=== PATIENT | female | born 1930 | race Caucasian/White ===

== ENCOUNTER 2018-01-29 06:37 | Day surgery (SDC) | payer MEDICARE, OTHER ==
[~2018-01-29 06:37] MED LIST: KETOROLAC TROMETHAMINE 0.45% 4 DROP/0.4 ML DROPERETTE OS PRN
[2018-01-29] MEDS: TROPICAMIDE 1% OPH SOLN 3 ML OS PRN ×3 (06:54→07:14)
[2018-01-29] MEDS: BESIFLOXACIN HCL 0.6% OPH SUSP 5 ML BOTTLE OS PRN ×3 (06:54→07:44)
[2018-01-29] MEDS: CYCLOPENTOLATE 0.2%/PHENYLEPHRINE 1% OPH SOLN 2 ML OS PRN ×3 (06:54→07:14)
[2018-01-29] MEDS: TETRACAINE HCL 0.5% OPH SOLN 2 ML OS PRN ×3 (06:55→07:32)
[2018-01-29] MEDS ORDERED: FENTANYL CITRATE INJ/PF 100 MCG/2 ML AMPUL ONE (07:01)
[2018-01-29] MEDS ORDERED: MIDAZOLAM 2 MG/2 ML INJ ONE (07:01)
[2018-01-29] MEDS ORDERED: ONDANSETRON HCL INJ/PF 4 MG/2 ML SDV ONE (07:01)
[2018-01-29] MEDS ORDERED: EPINEPHRINE INJ/PF 1 MG/1 ML AMPULE ONE (07:09)
[2018-01-29] MEDS ORDERED: CHONDR SU A NA/HYALUR INTRAOC KIT (SURGICARE) ONE (07:09)
[2018-01-29] MEDS ORDERED: LIDOCAINE 1% INJ-PF (10 MG/ML) 30 ML SDV ONE (07:09)
--- NOTE | 2018-01-29 21:40 | [facility] OPERATIVE REPORT E ---
[facility] Operative Report NAME: ANTHONY MANRIQUEZ AGE: 88Y DATE OF SURGERY: 01/29/2018 ROOM: PREOPERATIVE DIAGNOSIS: CATARACT, LEFT EYE. POSTOPERATIVE DIAGNOSIS: CATARACT, LEFT EYE. OPERATION: Cataract extraction with insertion of an IOL of the left eye. SURGEON: MICHAEL JOVEL M.D. ANESTHESIA: Topical. PROCEDURE: After obtaining appropriate consent, the patient's left eye was prepped and draped in sterile fashion as well as the surgeon in a sterile manner and cataract surgery was started. First a paracentesis blade was used to make a side-port incision. Viscoelastic was used to inflate the anterior chamber. Next a 2.4 mm incision was made with a 2.4 mm blade, clear corneal temporally. A continuous capsulorrhexis was made using a cystotome and Utrata forceps. Following this hydrodissection was carried out to make the lens fully loose and mobile and it was rotated 90 degrees. Following this, a sujqyd-myd-ztzzyzg technique was used to phacoemulsify the lens with a CDE of 7.47. The remaining cortex was removed with irrigation/aspiration. Provisc was instilled into the capsular bag to inflate the bag. A SN60WF, 24.0 diopter lens was placed. The remaining viscoelastic material was removed with irrigation/aspiration. Following this, the incision was found to be watertight. Besivance was instilled into the eye and a protective shield was placed over the eye. The patient returned to the postoperative recovery in stable condition. DICTATING PHYSICIAN: MICHAEL JOVEL M.D. [id number] PHY#: [id number] ID: [id number] JOB#: [id number] ACCT: [id number] cc:MICHAEL JOVEL M.D. >
--- NOTE | 2018-01-29 21:40 | [facility] DISCHARGE SUMMARY E ---
[facility] Discharge Summary NAME: ANTHONY MANRIQUEZ AGE: 88Y ADMITTED: 01/29/2018 DISCHARGED: 01/29/18 HOSPITAL COURSE: This is an 88-year-old patient who underwent cataract extraction of the left eye. DIAGNOSIS: CATARACT, LEFT EYE. She underwent surgery because she was having trouble seeing medicine bottle. DISCHARGE INSTRUCTIONS: She should be on a regular diet. No bending at her waist, no heavy lifting. She should use her Besivance, Ilevro, and Durezol at 3 p.m. and 8 p.m. and sleep with a rigid shield. I will see her for her 1 day postoperative tomorrow. DICTATING PHYSICIAN: MICHAEL JOVEL M.D. [id number] PHY#: [id number] ID: [id number] JOB#: [id number] ACCT: [id number] cc:MICHAEL JOVEL M.D. > MTDD
== END 2018-01-29 08:45 | disposition home or self-care (01) ==
LOC: SC 06:37
PROVIDERS: ATTEND Internal Medicine
DX: H25.13 Age-related nuclear cataract, bilateral (principal); H04.123 Dry eye syndrome of bilateral lacrimal glands; E78.00 Pure hypercholesterolemia, unspecified; Z79.899 Other long term (current) drug therapy; Z88.5 Allergy status to narcotic agent; Z79.82 Long term (current) use of aspirin
CPT/HCPCS: 66984; V2632; J2250; J3490 ×2; A9270; J0171; J3010; J2405; 142

== ENCOUNTER 2018-02-19 09:23 | Day surgery (SDC) | payer MEDICARE, OTHER ==
[~2018-02-19 09:23] MED LIST changes: +KETOROLAC TROMETHAMINE 0.45% 4 DROP/0.4 ML DROPERETTE OD PRN; -KETOROLAC TROMETHAMINE 0.45% 4 DROP/0.4 ML DROPERETTE OS PRN; +MIDAZOLAM 2 MG/2 ML INJ ONE
[2018-02-19] MEDS: TETRACAINE HCL 0.5% OPH SOLN 2 ML OD PRN ×3 (10:10→10:52)
[2018-02-19] MEDS ORDERED: LIDOCAINE 1%/PHENYLEPHRINE 1.5% 1 ML VIAL ONE (10:10)
[2018-02-19] MEDS: TROPICAMIDE 1% OPH SOLN 3 ML OD PRN ×3 (10:10→10:33)
[2018-02-19] MEDS ORDERED: EPINEPHRINE INJ/PF 1 MG/1 ML AMPULE ONE (10:10)
[2018-02-19] MEDS: CYCLOPENTOLATE 0.2%/PHENYLEPHRINE 1% OPH SOLN 2 ML OD PRN ×3 (10:10→10:33)
[2018-02-19] MEDS ORDERED: CHONDR SU A NA/HYALUR INTRAOC KIT (SURGICARE) ONE (10:10)
[2018-02-19] MEDS: BESIFLOXACIN HCL 0.6% OPH SUSP 5 ML BOTTLE OD PRN ×3 (10:10→11:13)
--- NOTE | 2018-02-19 16:11 | [facility] OPERATIVE REPORT E ---
[facility] Operative Report NAME: ANTHONY MANRIQUEZ AGE: 88Y DATE OF SURGERY: 02/19/2018 ROOM: PREOPERATIVE DIAGNOSIS: CATARACT, RIGHT EYE. POSTOPERATIVE DIAGNOSIS: CATARACT, RIGHT EYE. OPERATION: Cataract extraction with insertion of an IOL of the right eye. SURGEON: MICHAEL JOVEL M.D. ANESTHESIA: Topical. PROCEDURE: After obtaining appropriate consent, the patient's right eye was prepped and draped in sterile fashion as well as the surgeon in a sterile manner and cataract surgery was started. First a paracentesis blade was used to make a side-port incision. Viscoelastic was used to inflate the anterior chamber. Next a 2.4 mm incision was made with a 2.4 mm blade, clear corneal temporally. A continuous capsulorrhexis was made using a cystotome and Utrata forceps. Following this hydrodissection was carried out to make the lens fully loose and mobile and it was rotated 90 degrees. Following this, a wlyibd-jli-uhmjwsn technique was used to phacoemulsify the lens with a CDE of 27.71. The remaining cortex was removed with irrigation/aspiration. Provisc was instilled into the capsular bag to inflate the bag. A SN60WF, 23.5 diopter lens was placed. The remaining viscoelastic material was removed with irrigation/aspiration. Following this, the incision was found to be watertight. Besivance was instilled into the eye and a protective shield was placed over the eye. The patient returned to the postoperative recovery in stable condition. DICTATING PHYSICIAN: MICHAEL JOVEL M.D. [id number] PHY#: [id number] ID: [id number] JOB#: [id number] ACCT: [id number] cc:MICHAEL JOVEL M.D. >
--- NOTE | 2018-02-19 16:21 | [facility] DISCHARGE SUMMARY E ---
[facility] Discharge Summary NAME: ANTHONY MANRIQUEZ AGE: 88Y ADMITTED: 02/19/2018 DISCHARGED: HOSPITAL COURSE: This is an 88-year-old female who underwent cataract extraction of the right eye. DIAGNOSIS: CATARACT, RIGHT EYE. DISCHARGE INSTRUCTIONS: She underwent surgery because of some difficulty secondary to glare from sunlight, making it difficult to see outdoors. She should resume a regular diet. No bending at the waist, no heavy lifting. She should use her Besivance, Ilevro, and Durezol at 3:00 p.m. and 8:00 p.m., and sleep with a rigid shield. I will see her for her 1 day postoperative tomorrow. DICTATING PHYSICIAN: MICHAEL JOVEL M.D. [id number] PHY#: [id number] ID: [id number] JOB#: [id number] ACCT: [id number] cc:MICHAEL JOVEL M.D. >
== END 2018-02-19 11:56 | disposition home or self-care (01) ==
LOC: SC 09:23
PROVIDERS: ATTEND Internal Medicine
DX: H25.11 Age-related nuclear cataract, right eye (principal); Z96.1 Presence of intraocular lens; Z79.82 Long term (current) use of aspirin; Z88.5 Allergy status to narcotic agent
CPT/HCPCS: 66984; V2632; J2250; J3490; A9270; J0171; J2370; 142

== ENCOUNTER 2018-12-09 18:05 | Emergency (ER) | payer MEDICARE, OTHER ==
[2018-12-09 18:21] LABS: ABSOLUTE BASOPHILS # (AUTO) 0.1 10^3/uL (0.0-0.2); ABSOLUTE EOSINOPHILS # (AUTO) 0.1 10^3/uL (0.0-0.6); ABSOLUTE LYMPHOCYTES (AUTO) 1.8 10^3/uL (0.5-4.7); ABSOLUTE MONOCYTES (AUTO) 0.7 10^3/uL (0.1-1.4); ABSOLUTE NEUT (AUTO) 3.1 10^3/uL (1.7-8.2); BASOPHILS % (AUTO) 1.2 % (0-2); EOSINOPHILS % (AUTO) 1.2 % (0-6); HEMATOCRIT 41.1 % (36.0-47.0); HEMOGLOBIN 14.2 g/dL (12.0-15.5); LYMPHOCYTES % (AUTO) 31.1 % (13-45); MEAN CORPUSCULAR HEMOGLOBIN 30.8 pg (27.0-33.4); MEAN CORPUSCULAR HGB CONC 34.5 g/dL (32.0-36.0); MEAN CORPUSCULAR VOLUME 89 fl (80-97); MONOCYTES % (AUTO) 12.8 % (3-13); RED BLOOD COUNT 4.61 10^6/uL (3.72-5.28); RED CELL DISTRIBUTION WIDTH 13.8 % (11.5-14.0); SEGMENTED NEUTROPHILS % (AUTO) 53.7 % (42-78); TOTAL CELLS COUNTED % (AUTO) 100 %; WHITE BLOOD COUNT 5.7 10^3/uL (4.0-10.5)
[2018-12-09 18:23] LABS: INTERNATIONAL RATION (INR) 0.87; PARTIAL THROMBOPLASTIN TIME 26.5 SEC (23.5-35.8); PROTHROMBIN TIME 12.3 SEC (11.4-15.4)
--- NOTE | 2018-12-09 18:38 | RADIOLOGY REPORT (SQ) ---
EXAM DESCRIPTION: CT HEAD WITHOUT COMPLETED DATE/TIME: 12/09/2018 6:20 pm REASON FOR STUDY: BED MP STROKE ALERT COMPARISON: None. TECHNIQUE: Axial images acquired through the brain without intravenous contrast. Images reviewed wi th bone, brain and subdural windows. Images stored on PACS. All CT scanners at this facility use dose modulation, iterative reconstruction, and/or weight based d osing when appropriate to reduce radiation dose to as low as reasonably achievable (ALARA). [facility]: Dose Right [facility]: CareDose [facility]: Dose Right [facility]: Teradose 4D [facility]: [employer] RADIATION DOSE: CT Rad equipment meets quality standard of care and radiation dose reduction techniq ues were employed. CTDIvol: 53.2 mGy. DLP: 1017 mGy-cm. mGy. LIMITATIONS: None. FINDINGS: VENTRICLES: Prominent. CEREBRUM: No masses. No hemorrhage. No midline shift. Areas of low density in the white matter mos t likely due to chronic micro-vascular ischemic change. No evidence for acute infarction. CEREBELLUM: No masses. No hemorrhage. No alteration of density. No evidence for acute infarction. EXTRAAXIAL SPACES: Mild age-related involutional change. No fluid collections. No masses. ORBITS AND GLOBE: No intra- or extraconal masses. Normal contour of globe without masses. CALVARIUM: No fracture. PARANASAL SINUSES: No fluid or mucosal thickening. SOFT TISSUES: No mass or hematoma. OTHER: No other significant finding. IMPRESSION: MILD CHRONIC CHANGES OF ATROPHY AND MICROVASCULAR ISCHEMIA. NO ACUTE PROCESS. EVIDENCE OF ACUTE STROKE: NO. COMMENT: Results called to Dr. Pinto in the emergency room at 1830 hours. TECHNICAL DOCUMENTATION: JOB ID: [id number]-72 Quality ID # [id number]: Final reports with documentation of one or more dose reduction techniques (e.g., Au tomated exposure control, adjustment of the mA and/or kV according to patient size, use of iterative reconstruction technique) 2010 [employer]- All Rights Reserved Reading location - IP/workstation name: [employer]
[2018-12-09 18:43] LABS: PLATELET COUNT 173 10^3/uL (150-450)
[2018-12-09 18:47] LABS: ALANINE AMINOTRANSFERASE 17 U/L (9-52); ALBUMIN 4.5 g/dL (3.5-5.0); ALKALINE PHOSPHATASE 75 U/L (38-126); ANION GAP 7 (5-19); ASPARTATE AMINO TRANSFERASE 26 U/L (14-36); BILIRUBIN,DIRECT 0.2 mg/dL (0.0-0.4); BILIRUBIN,TOTAL 0.4 mg/dL (0.2-1.3); BLOOD UREA NITROGEN 30 mg/dL (7-20); CALCIUM 10.6 mg/dL (8.4-10.2); CARBON DIOXIDE 28 mmol/L (22-30); CHLORIDE 109 mmol/L (98-107); CREATINE KINASE 27 U/L (30-135); GLUCOSE 115 mg/dL (75-110); POTASSIUM 4.6 mmol/L (3.6-5.0); SODIUM 144.3 mmol/L (137-145); TOTAL PROTEIN 7.8 g/dL (6.3-8.2)
[2018-12-09] MEDS ORDERED: ASPIRIN 325 MG TABLET PO ONE (18:48)
--- NOTE | 2018-12-09 18:53 | ER Document Report ---
ED Neuro Symptoms/Deficit - General Chief Complaint: S/S of Possible Stroke Stated Complaint: POSSIBLE STROKE Time Seen by Provider: 12/09/18 18:10 TRAVEL OUTSIDE OF THE [place] IN LAST 30 DAYS: No - HPI Notes: Patient is a 88-year-old female that presents to the emergency department for chief complaint of strokelike symptoms. At 1600 today patient was visiting a friend at a [facility] facility when she had sudden onset of difficulty speaking. She denied any numbness or weakness. Patient denies history of stroke in the past. She is not currently on blood thinning medications. She denies headache and vision changes. Past Medical History: Reviewed in chart Past Surgical History: Reviewed in chart Social History: Denies tobacco alcohol Family History: Reviewed and noncontributory for presenting illness Allergies: Reviewed, see documented allergy list. REVIEW OF SYSTEMS: CONSTITUTIONAL : No fever No chills No diaphoresis No recent illness EENT: No vision changes No congestion No sore throat CARDIOVASCULAR: No chest pain No palpitations RESPIRATORY: No shortness of breath No cough No difficulty breathing GASTROINTESTINAL: No abdominal pain No nausea No vomiting No diarrhea GENITOURINARY: No dysuria No hematuria No difficulty urinating MUSCULOSKELETAL: No back pain No leg pain No arm pain SKIN: No rashes No lesions LYMPHATIC: No swollen, enlarged glands. NEUROLOGICAL: aphasia No lightheadedness No headache No weakness No paresthesias PSYCHIATRIC: No anxiety No depression PHYSICAL EXAMINATION: Vital signs reviewed, nursing noted reviewed. GENERAL: Well-appearing, well-nourished and in no acute distress. HEAD: Atraumatic, normocephalic. EYES: Eyes appear normal, extraocular movements intact, sclera anicteric, con junctiva are normal. ENT: nares patent, oropharynx clear without exudates. Moist mucous membranes. NECK: Normal range of motion, supple without lymphadenopathy LUNGS: Breath sounds clear to auscultation bilaterally and equal. No wheezes rales or rhonchi. HEART: Regular rate and rhythm without murmurs ABDOMEN: Soft, nontender, normoactive bowel sounds. No rebound, guarding, or rigidity. No masses appreciated. EXTREMITIES: Nontender, good range of motion, no pitting or edema. NEUROLOGICAL: Aphasia, moves all extremities spontaneously Motor and sensory grossly intact on exam. PSYCH: Normal mood, normal affect. SKIN: Warm, Dry, normal turgor, no rashes or lesions noted on exposed skin - Related Data Allergies/Adverse Reactions: codeine [Codeine] Allergy (Mild, Verified 02/19/18 10:33) Nausea, vomiting Past Medical History - Social History Smoking Status: Never Smoker Family History: Reviewed & Not Pertinent - Past Medical History Cardiac Medical History: Denies: Hx Coronary Artery Disease, Hx Heart Attack, Hx Hypertension Pulmonary Medical History: Reports: Hx Bronchitis - 45 years ago, Hx Pneumonia - 45 years ago Denies: Hx Asthma, Hx COPD Neurological Medical History: Denies: Hx Cerebrovascular Accident, Hx Seizures GI Medical History: Denies: Hx Hepatitis, Hx Hiatal Hernia, Hx Ulcer Musculoskeletal Medical History: Denies Hx Arthritis Infectious Medical History: Denies: Hx Hepatitis Past Surgical History: Reports: Hx Hysterectomy. Denies: Hx Mastectomy, Hx Open Heart Surgery, Hx Pacemaker - Immunizations Hx Diphtheria, Pertussis, Tetanus Vaccination: No Hx Pneumococcal Vaccination: 08/18/08 Physical Exam - Vital signs Vitals: Pulse Ox 94 12/09/18 18:45 Course - Re-evaluation Re-evalutation: 12/09/18 18:48 Vitals reviewed per nursing notes reviewed. Patient presented to the emergency room with an initial NIH of 2 for a aphasia. Her noncontrast CT brain was unremarkable. CTA of the head and neck have been ordered and are still pending. Repeat NIH when patient return to the room was 1. Her aphasia is improving. She is not a TPA candidate currently for low NIH and improving symptoms. 12/09/18 20:44 Patient's aphasia has continued to slightly improved but is still present. The remainder of her work-up is unremarkable. Patient will be admitted to the hospital for further stroke evaluation. Care discussed with Dr. Cox who accepted admission. Laboratory 12/09/18 12/09/18 12/09/18 17:58 17:58 17:58 WBC 5.7 RBC 4.61 Hgb 14.2 Hct 41.1 MCV 89 MCH 30.8 MCHC 34.5 RDW 13.8 Plt Count 173 Seg Neutrophils % 53.7 Lymphocytes % 31.1 Monocytes % 12.8 Eosinophils % 1.2 Basophils % 1.2 Absolute Neutrophils 3.1 Absolute Lymphocytes 1.8 Absolute Monocytes 0.7 Absolute Eosinophils 0.1 Absolute Basophils 0.1 PT 12.3 INR 0.87 APTT 26.5 Sodium 144.3 Potassium 4.6 Chloride 109 H Carbon Dioxide 28 Anion Gap 7 BUN 30 H Creatinine 0.78 Est GFR ( Amer) > 60 Est GFR (Non-Af Amer) > 60 Glucose 115 H POC Glucose Calcium 10.6 H Total Bilirubin 0.4 Direct Bilirubin 0.2 Neonat Total Bilirubin Not Reportable Neonat Direct Bilirubin Not Reportable Neonat Indirect Bili Not Reportable AST 26 ALT 17 Alkaline Phosphatase 75 Creatine Kinase 27 L CK-MB (CK-2) Troponin I Total Protein 7.8 Albumin 4.5 12/09/18 12/09/18 17:58 18:50 WBC RBC Hgb Hct MCV MCH MCHC RDW Plt Count Seg Neutrophils % Lymphocytes % Monocytes % Eosinophils % Basophils % Absolute Neutrophils Absolute Lymphocytes Absolute Monocytes Absolute Eosinophils Absolute Basophils PT INR APTT Sodium Potassium Chloride Carbon Dioxide Anion Gap BUN Creatinine Est GFR ( Amer) Est GFR (Non-Af Amer) Glucose POC Glucose 97 Calcium Total Bilirubin Direct Bilirubin Neonat Total Bilirubin Neonat Direct Bilirubin Neonat Indirect Bili AST ALT Alkaline Phosphatase Creatine Kinase CK-MB (CK-2) < 0.22 Troponin I < 0.012 Total Protein Albumin Chest X-Ray 12/09/18 18:08 IMPRESSION: NO ACUTE FINDINGS. Head CT 12/09/18 18:08 IMPRESSION: MILD CHRONIC CHANGES OF ATROPHY AND MICROVASCULAR ISCHEMIA. NO ACUTE PROCESS. EVIDENCE OF ACUTE STROKE: NO. Head CTA 12/09/18 18:11 IMPRESSION: No evidence of aneurysm or significant focal stenosis. Neck CTA 12/09/18 18:11 IMPRESSION: No evidence of aneurysm or significant focal stenosis. 12/09/18 20:49 - Vital Signs Vital signs: Temp Pulse Resp BP Pulse Ox 94 12/09/18 18:45 - Laboratory Result Diagrams: 12/09/18 17:58 12/09/18 17:58 Laboratory results interpreted by me: 12/09/18 17:58 Chloride 109 H BUN 30 H Glucose 115 H Calcium 10.6 H Creatine Kinase 27 L - EKG Interpretation by Me Additional EKG results interpreted by me: 12/09/18 19:00 Interpreted by myself 1847: NSR, rate 104, left bundle branch block, normal axis ED NIH Stroke Scale - NIH Stroke Scale When completed:: Before Alteplase *: 1. NIH scale should be completed with appropriate accompanying assessment tools. *: 2. The NIH should reflect what the patient is capable of doing and should not be coached by the clinician. 1a. Level of Consciousness: 0=Alert;keenly responsive -: 1=Drowsy -: 2=Obtunded -: 3=Coma/unresponsive or reflex to noxious stimuli. 1a. Responses: 0 1b. Orientation Questions: a. What month is it? -: b. How old are you? -: 0=Answers both questions correctly. -: 1=Answers one question correctly or patient is intubated or has orotracheal trauma. -: 2=Answers neither question correctly. 1b. Responses: 0 1c. Response to commands: a. Open and close eyes? -: b. Cost Manager and release hand? -: Credit is given despite weakness. Demonstration of task is permitted. Substitute command if hands cannot be used. -: 0=Performs both tasks correctly -: 1=Performs one task correctly -: 2=Performs neither task correctly 1c. Responses: 0 2. Gaze: Establish eye contact and instruct patient to "Follow my finger" -: 0=Normal -: 1=Partial gaze palsy. Gaze is abnormal in one or both eyes, but where forced deviation or total gaze paresis is not present. -: 2=Forced deviation or total gaze paresis. 2. Responses: 0 3. Visual Plummer: Sees fingers in all four quadrants. -: 0=No visual loss. -: 1=Partial hemianopsia. -: 2=Complete hemianopsia. -: 3=Bilateral hemianopsia (including Cortical blindness) 3. Responses: 0 4. Facial Movement: Instruct patient to: -: a. Show me your teeth -: b. Raise your eyebrows -: c. Close your eyes -: d. Smile -: 0=Normal symmetrical movement -: 1=Minor paralysis (flattened nasolabial fold, asymmetry on smiling). -: 2=Partial paralysis (total or near total paralysis of lower face). -: 3=Complete paralysis of upper and lower face 4. Responses: 0 5. Motor functions (left arm): Alternate sides and extend each arm with palms down (90 degrees if sitting or 45 degrees for supine). -: 0=No drift;limb holds for full 10 seconds. -: 1=Drift; limb holds but drifts down before full 10 seconds, but does not hit bed. -: 2=Some effort against gravity; limb cannot get to or maintain position. -: 3=No effort against gravity; limb falls. -: 4=No movement. -: UN=Amputation, joint fusion, explain in comments. 5. Responses (left arm): 0 5. Motor Functions (right arm): Alternate sides and extend each arm with palms down (90 degrees if sitting or 45 degrees for supine). -: 0=No drift;limb holds for full 10 seconds. -: 1=Drift; limb holds but drifts down before full 10 seconds, but does not hit bed. -: 2=Some effort against gravity; limb cannot get to or maintain position. -: 3=No effort against gravity; limb falls. -: 4=No movement. -: UN=Amputation, joint fusion, explain in comments. 5. Responses (right arm): 0 6. Motor Functions (left leg): With patient lying supine, alternate sides and extend each leg (30 degrees always while supine). -: 0=No drift, leg holds position for full 5 seconds -: 1=Drift; leg falls before full 5 seconds but does not hit bed. -: 2=Some effort against gravity, leg falls to bed but some effort against gravity. -: 3=No effort against gravity, leg falls to bed immediately. -: 4=No movement. -: UN=Amputation, joint fusion; explain in comments. 6. Responses (left leg): 0 6. Motor Functions (right leg): With patient lying supine, alternate sides and extend each leg (30 degrees always while supine). -: 0=No drift, leg holds position for full 5 seconds -: 1=Drift; leg falls before full 5 seconds but does not hit bed. -: 2=Some effort against gravity, leg falls to bed but some effort against gravity. -: 3=No effort against gravity, leg falls to bed immediately. -: 4=No movement. -: UN=Amputation, joint fusion; explain in comments. 6. Responses (right leg): 0 7. Limb Ataxia: With eyes open instruct patient to: -: a. "Touch your finger to your nose". -: b. "Touch your heel to your fleming" -: 0=Absent -: 1=Present in one limb. -: 2=Present in two limbs. -: UN=Amputation or joint fusion; explain in comments. 7. Responses: 0 8. Sensory: Test sensation using pinprick or noxious stimuli. Test as many body parts as possible. -: 0=Normal;no sensory loss -: 1=Mile to moderate sensory loss (patient feels pin prick but is less sharp on affected side). -: 2=Severe or total sensory loss. 8. Responses: 0 9. Best Language: Instruct patient to: -: a. "Describe what you see in this picture." -: b. "Name the items in this picture." -: c. "Read these sentences." -: 0=No aphasia, normal -: 1=Mild to moderate aphasia. -: 2=Severe aphasia -: 3=Mute, global aphasia, no usable speech or auditory comprehension. 9. Responses: 2 10. Articulation, Dysarthia: Instruct patient to: -: "Read these words" or "Repeat these words" -: 0=Normal -: 1=Mild to moderate; patient may slur some words but can be understood without difficulty. -: 2=Severe; patients speech so slurred as to be unintelligible in the absence of dysphasia. -: UN=Intubated or other physical barrier, explain in comments. 10. Responses: 0 11. Extinction or inattention: 0=No abnormality -: 1= Visual, tactile, auditory, spatial, or personal inattention or extinction to bilateral simulation in one or the sensory modalities. -: 2=Profound christiana-inattention or christiana-inattention to more than one modality; does not recognize own hand. 11. Responses: 0 Total Score: 2 Discharge - Discharge Clinical Impression: Aphasia Condition: Stable Disposition: ADMITTED INPATIENT Admitting Provider: Kenny (Hospitalist) Unit Admitted: [facility]
[2018-12-09 18:54] LABS: CREATINE KINASE MB < 0.22 ng/mL (<4.55); TROPONIN I < 0.012 ng/mL
--- NOTE | 2018-12-09 19:08 | RADIOLOGY REPORT (SQ) ---
EXAM DESCRIPTION: CHEST SINGLE VIEW COMPLETED DATE/TIME: 12/09/2018 6:40 pm REASON FOR STUDY: BED MP STROKE ALERT COMPARISON: 05/07/2012 TECHNIQUE: Single frontal radiographic view of the chest acquired. NUMBER OF VIEWS: One view. LIMITATIONS: None. FINDINGS: LUNGS AND PLEURA: No pneumothorax. No consolidation or pleural effusion. MEDIASTINUM AND HILAR STRUCTURES: Stable. HEART AND VASCULAR STRUCTURES: Stable. BONES: No acute findings. HARDWARE: None in the chest. OTHER: No other significant finding. IMPRESSION: NO ACUTE FINDINGS. TECHNICAL DOCUMENTATION: JOB ID: [id number] [place]-72 2010 [employer]- All Rights Reserved Reading location - IP/workstation name: [email or web address]
--- NOTE | 2018-12-09 19:13 | RADIOLOGY REPORT (SQ) ---
EXAM DESCRIPTION: CTA HEAD COMPLETED DATE/TIME: 12/09/2018 6:44 pm REASON FOR STUDY: stroke COMPARISON: None. TECHNIQUE: Post IV contrast scanning, thin section axial imaging through the brain to evaluate the a rterial structures. Source and MIP images are saved and reviewed on PACS. Advanced 3D imaging as volume-rendering, MIPs, SSD performed? yes All CT scanners at this facility use dose modulation, iterative reconstruction, and/or weight based d osing when appropriate to reduce radiation dose to as low as reasonably achievable (ALARA). [facility]: Dose Right [facility]: CareDose [facility]: Dose Right [facility]: Teradose 4D [facility]: [employer] CONTRAST TYPE AND DOSE: contrast/concentration: Isovue 350.00 mg/ml; Total Contrast Delivered: 140.0 ml; Total Saline Delivered: 150.0 ml RENAL FUNCTION: Not obtained due to patient condition LIMITATIONS: None. FINDINGS: [place]: The anterior, middle, posterior cerebral arteries are all patent. No ev idence of aneurysm or significant focal stenosis. POSTERIOR CIRCULATION: The distal vertebral arteries are patent as is the basilar artery. No aneurysm . BRAIN: No gross enhancing lesions as visualized. The superior cerebral hemispheres are not included in the field of view. BONES: Intact as visualized. SINUSES: No fluid or mucosal thickening. OTHER: No other significant finding. IMPRESSION: No evidence of aneurysm or significant focal stenosis. TECHNICAL DOCUMENTATION: JOB ID: [id number] [place]-72 Quality ID # [id number]: Final reports with documentation of one or more dose reduction techniques (e.g., Au tomated exposure control, adjustment of the mA and/or kV according to patient size, use of iterative reconstruction technique) 2010 [employer]- All Rights Reserved Reading location - IP/workstation name: [email or web address]
--- NOTE | 2018-12-09 19:15 | RADIOLOGY REPORT (SQ) ---
EXAM DESCRIPTION: CTA NECK COMPLETED DATE/TIME: 12/09/2018 6:44 pm REASON FOR STUDY: stroke COMPARISON: None. TECHNIQUE: Axial dynamic scanning technique with dynamic contrast enhancement through the extra-crane follower nial carotid and vertebral arteries. Multiplanar reconstruction. 3-D MIPS and Volume-rendered imag es acquired at the workstation and saved to PACS. Images are reviewed in soft tissue, bone, lung w indows. All CT scanners at this facility use dose modulation, iterative reconstruction, and/or weight based d osing when appropriate to reduce radiation dose to as low as reasonably achievable (ALARA). [facility]: Dose Right [facility]: CareDose [facility]: Dose Right [facility]: Teradose 4D [facility]: [employer] CONTRAST TYPE AND DOSE: 100 mL Omnipaque 350- low osmolar. RENAL FUNCTION: None obtain due to patient condition LIMITATIONS: None. FINDINGS: AORTIC ARCH: Normal three-vessel origin. Bilateral subclavian arteries are patent. No d issection. RIGHT CAROTIDS: Patent common, internal and external carotid arteries without suggestion of significa nt stenosis or irregular plaque. No dissection. RIGHT VERTEBRAL: Patent. No dissection. LEFT CAROTIDS: Patent common, internal and external carotid arteries without suggestion of significan t stenosis or irregular plaque. No dissection. LEFT VERTEBRAL: Patent. No dissection. OTHER: No other significant finding. OTHER: 3-D reconstructions confirm findings. IMPRESSION: No evidence of aneurysm or significant focal stenosis. COMMENT: Quality ID #[id number]: Measurements of distal internal carotid diameter were used as the denomina tor for stenosis measurement. TECHNICAL DOCUMENTATION: JOB ID: [id number] [place]-72 Quality ID # [id number]: Final reports with documentation of one or more dose reduction techniques (e.g., Au tomated exposure control, adjustment of the mA and/or kV according to patient size, use of iterative reconstruction technique) 2010 [employer]- All Rights Reserved Reading location - IP/workstation name: [email or web address]
[2018-12-09] MEDS ORDERED: ACETAMINOPHEN 325 MG TABLET PO PRN (20:47)
[2018-12-09] MEDS ORDERED: MAGNESIUM HYDROXIDE SUSP 30 ML UDCUP PO PRN (20:47)
[2018-12-09] MEDS ORDERED: DOCUSATE SODIUM 100 MG CAPSULE PO PRN (20:47)
[2018-12-09] MEDS ORDERED: NORMAL SALINE 1000 ML 1,000 ML IV SCH (21:00)
[2018-12-09 21:51] VITALS: BP 140/74
[2018-12-09] MEDS ORDERED: HEPARIN SOD (PORCINE) 5,000 UNIT/ML 1 ML SYRINGE SUBCUT SCH (22:00)
--- NOTE | 2018-12-10 08:47 | EKG REPORT ---
SEVERITY:- ABNORMAL ECG - ATRIAL FIBRILLATION LEFT BUNDLE BRANCH BLOCK : Confirmed by: Mahendra Allred MD 10-Dec-2018 08:46:34
== END 2018-12-09 21:51 | disposition home or self-care (01) ==
LOC: ER 18:05 → EH 20:59 → UNDOADMIN 20:59 → ER 21:51
DX: R47.01 Aphasia (principal); R29.702 NIHSS score 2
CPT/HCPCS: 93005; 99285; 36415; 82553; 82962; 82550; 84443; 85025; 85610; 85730; 80053; 84484; 71045; 70450; 70496; 70498; 93010; A9270

== ENCOUNTER 2019-02-22 12:56 | Inpatient (IN) | payer MEDICARE ==
[2019-02-22] MEDS ORDERED: ACETAMINOPHEN 325 MG TABLET PO ONE (13:01)
--- NOTE | 2019-02-22 13:42 | RADIOLOGY REPORT (SQ) ---
EXAM DESCRIPTION: FOOT RIGHT COMPLETE COMPLETED DATE/TIME: 02/22/2019 1:17 pm REASON FOR STUDY: bed 19 when clean tenderness+ per dr pruetttt COMPARISON: None. NUMBER OF VIEWS: Three views. TECHNIQUE: AP, lateral and oblique radiographic images acquired of the right foot. LIMITATIONS: None. FINDINGS: MINERALIZATION: Normal. BONES: No acute fracture or dislocation. No worrisome bone lesions. JOINTS: Hallux valgus deformity right 1st metatarsophalangeal joint. Small ossified loose bodies and chondrocalcinosis at the 1st metatarsophalangeal joint with mild joint space narrowing. SOFT TISSUES: No soft tissue swelling. No foreign body. OTHER: No other significant finding. IMPRESSION: No acute fracture or malalignment. Hallux valgus deformity. TECHNICAL DOCUMENTATION: JOB ID: [id number] [email or web address]- All Rights Reserved Reading location - IP/workstation name: [email or web address]
[2019-02-22] MEDS ORDERED: NORMAL SALINE 1000 ML 1,000 ML IV ONE ×2 (14:35→16:43)
[2019-02-22 15:00] LABS: BLOOD UREA NITROGEN 34 mg/dL (7-20); CALCIUM 9.9 mg/dL (8.4-10.2); CARBON DIOXIDE 27 mmol/L (22-30); CHLORIDE 109 mmol/L (98-107); GLUCOSE 173 mg/dL (75-110); POTASSIUM 3.7 mmol/L (3.6-5.0)
[2019-02-22 15:01] LABS: ALANINE AMINOTRANSFERASE 19 U/L (9-52); ALBUMIN 4.6 g/dL (3.5-5.0); ALKALINE PHOSPHATASE 68 U/L (38-126); ANION GAP 12 (5-19); ASPARTATE AMINO TRANSFERASE 70 U/L (14-36); BILIRUBIN,DIRECT 0.3 mg/dL (0.0-0.4); BILIRUBIN,TOTAL 0.9 mg/dL (0.2-1.3); SODIUM 147.6 mmol/L (137-145); TOTAL PROTEIN 7.6 g/dL (6.3-8.2)
[2019-02-22 15:10] LABS: CREATINE KINASE MB 31.5 ng/mL (<4.55)
[2019-02-22 15:13] LABS: TROPONIN I 0.202 ng/mL
[2019-02-22 15:15] LABS: APPEARANCE,URINE CLEAR; BILIRUBIN,URINE MODERATE (NEGATIVE); COLOR,URINE AMBER; GLUCOSE, URINE NEGATIVE (NEGATIVE); KETONES,URINE 300 mg/dL (NEGATIVE); URINE SPECIFIC GRAVITY 1.034
[2019-02-22 15:16] LABS: LEUKOCYTE ESTERASE,URINE NEGATIVE (NEGATIVE); NITRITE,URINE NEGATIVE (NEGATIVE); PROTEIN,URINE >=500 mg/dL (NEGATIVE)
--- NOTE | 2019-02-22 15:22 | RADIOLOGY REPORT (SQ) ---
EXAM DESCRIPTION: CHEST SINGLE VIEW COMPLETED DATE/TIME: 02/22/2019 2:47 pm REASON FOR STUDY: bed 19 elevated hr COMPARISON: 12/09/2018, 05/07/2012 EXAM PARAMETERS: NUMBER OF VIEWS: One view. TECHNIQUE: Single frontal radiographic view of the chest acquired. RADIATION DOSE: NA LIMITATIONS: None. FINDINGS: LUNGS AND PLEURA: No opacities, masses or pneumothorax. No pleural effusion. MEDIASTINUM AND HILAR STRUCTURES: No masses. Contour normal. HEART AND VASCULAR STRUCTURES: Heart normal in size. Normal vasculature. BONES: Convex leftward lower thoracic curvature HARDWARE: None in the chest. OTHER: No other significant finding. IMPRESSION: NO ACUTE RADIOGRAPHIC FINDING IN THE CHEST. TECHNICAL DOCUMENTATION: JOB ID: [id number] [email or web address]- All Rights Reserved Reading location - IP/workstation name: [email or web address]
[2019-02-22 15:45] LABS: CREATINE KINASE 3830 U/L (30-135)
--- NOTE | 2019-02-22 16:33 | ER Document Report ---
Entered by HAKAN SALAZAR SCRIBE 02/22/19 1433 Acting as scribe for:DAYSI SAN MD ED Fall - General Chief Complaint: Fall Stated Complaint: FALL Time Seen by Provider: 02/22/19 14:12 Mode of Arrival: Ambulatory Information source: Patient Notes: 89 year old female that presents to the emergency department today with complaints of begin found down on the ground in the bathroom this morning when her son came to check on her. Son states that when he checked on her last night and she was fine, when he came over this morning she was in the bathroom, on the ground, with her legs draped over the shower "curb". Son states the patient is ambulatory at baseline and lives alone. Patient has no complaints. TRAVEL OUTSIDE OF THE [place] IN LAST 30 DAYS: No - Related data Allergies/Adverse Reactions: codeine [Codeine] Allergy (Mild, Verified 02/19/18 10:33) Nausea, vomiting Past Medical History - General Information source: Patient - Social History Smoking Status: Former Smoker Cigarette use (# per day): No Chew tobacco use (# tins/day): No Smoking Education Provided: No Frequency of alcohol use: None Drug Abuse: None Lives with: Family Family History: Reviewed & Not Pertinent Pulmonary Medical History: Reports: Hx Bronchitis - 45 years ago, Hx Pneumonia - 45 years ago Renal/ Medical History: Denies: Hx Peritoneal Dialysis Past Surgical History: Reports: Hx Hysterectomy - Immunizations Hx Diphtheria, Pertussis, Tetanus Vaccination: No Hx Pneumococcal Vaccination: 08/18/08 Review of Systems - Review of Systems Constitutional: See HPI, Other - found down on the ground EENT: No symptoms reported Cardiovascular: No symptoms reported Respiratory: No symptoms reported Gastrointestinal: No symptoms reported Genitourinary: No symptoms reported Female Genitourinary: No symptoms reported Musculoskeletal: No symptoms reported Skin: See HPI, Lesions Hematologic/Lymphatic: No symptoms reported Neurological/Psychological: No symptoms reported -: Yes All other systems reviewed and negative Physical Exam - Vital signs Vitals: Pulse Ox 100 02/22/19 12:56 - Notes Notes: Physical Exam: General: Alert, appears well. HEENT: Normocephalic. Atraumatic. PERRL. Extraocular movements intact. Oropharyn x clear. Lips are dry and cracking, dry oral mucosa. Neck: Supple. Non-tender. Respiratory: No respiratory distress. Clear and equal breath sounds bilaterally. Cardiovascular: Tachycardic, regular rhythm. Abdominal: Normal Inspection. Non-tender. No distension. Normal Bowel Sounds. Back: Non-tender. No deformity or step off. Extremities: Moves all four extremities. Upper extremities: Normal inspection. Normal ROM. Lower extremities: Left posterior distal medial thigh has an area of erythema with central skin breakdown. Right posterior distal medial thigh has an area of erythema without skin breakdown. Neurological: Normal cognition. AAOx4. Normal speech. Psychological: Normal affect. Normal Mood. Skin: Warm. Dry. Normal color. Course - Re-evaluation Re-evalutation: 02/22/19 16:41 At this time the patient is bouncing back and forth between normal sinus rhythm and A. fib with a regular response of about 110. - Vital Signs Vital signs: Temp Pulse Resp BP Pulse Ox 98.4 F 27 H 123/79 93 02/22/19 15:01 02/22/19 15:01 02/22/19 15:01 02/22/19 15:01 - Laboratory Result Diagrams: 02/22/19 14:10 02/22/19 14:10 Laboratory results interpreted by me: 02/22/19 02/22/19 02/22/19 14:10 14:10 14:10 WBC 10.9 H Lymphocytes % 6.1 L Monocytes % 16.3 H Absolute Neutrophils 8.5 H Absolute Monocytes 1.8 H Sodium 147.6 H Chloride 109 H BUN 34 H Glucose 173 H AST 70 H Creatine Kinase 3830 H CK-MB (CK-2) 31.50 H Urine Protein Urine Ketones Urine Blood Urine Bilirubin Urine Urobilinogen Urine Ascorbic Acid 02/22/19 14:10 WBC Lymphocytes % Monocytes % Absolute Neutrophils Absolute Monocytes Sodium Chloride BUN Glucose AST Creatine Kinase CK-MB (CK-2) Urine Protein >=500 H Urine Ketones 300 H Urine Blood LARGE H Urine Bilirubin MODERATE H Urine Urobilinogen 2.0 H Urine Ascorbic Acid 20 H - Diagnostic Test Radiology reviewed: Image reviewed, Reports reviewed - Chest x-ray is unremarkable, right foot x-ray shows hallux valgus but no acute abnormality. - EKG Interpretation by Me EKG shows normal: Mclean, Intervals, QRS Complexes, ST-T Waves Rate: Tachycardia - 133 Rhythm: A.Fib Mclean/QRS: LBBB When compared to previous EKG there are: No significant change - EKG done on 12/09/2018 also shows atrial fibrillation with left bundle branch block - Consults Dr. Talley Time consulted: 16:41 Consulted provider: will come to ER Discharge - Discharge Clinical Impression: Paroxysmal atrial fibrillation with RVR, Dehydration Fall Qualifiers: Encounter type: initial encounter Qualified Code(s): W19.XXXA - Unspecified fall, initial encounter Rhabdomyolysis Qualifiers: Rhabdomyolysis type: traumatic Encounter type: initial encounter Qualified Code(s): T79.6XXA - Traumatic ischemia of muscle, initial encounter Condition: Stable Disposition: ADMITTED INPATIENT Scribe Attestation: 02/22/19 16:40 I personally performed the services described in the documentation, reviewed and edited the documentation which was dictated to the scribe in my presence, and it accurately records my words and actions. I personally performed the services described in the documentation, reviewed and edited the documentation which was dictated to the scribe in my presence, and it accurately records my words and actions.
[2019-02-22 16:38] LABS: ABSOLUTE LYMPHOCYTES (AUTO) 0.7 10^3/uL (0.5-4.7); ABSOLUTE MONOCYTES (AUTO) 1.8 10^3/uL (0.1-1.4); ABSOLUTE NEUT (AUTO) 8.5 10^3/uL (1.7-8.2); BASOPHILS % (AUTO) 0.2 % (0-2); HEMATOCRIT 43.1 % (36.0-47.0); HEMOGLOBIN 14.4 g/dL (12.0-15.5); LYMPHOCYTES % (AUTO) 6.1 % (13-45); MEAN CORPUSCULAR HEMOGLOBIN 29.9 pg (27.0-33.4); MEAN CORPUSCULAR HGB CONC 33.4 g/dL (32.0-36.0); MEAN CORPUSCULAR VOLUME 90 fl (80-97); MONOCYTES % (AUTO) 16.3 % (3-13); PLATELET COUNT 179 10^3/uL (150-450); RED BLOOD COUNT 4.81 10^6/uL (3.72-5.28); RED CELL DISTRIBUTION WIDTH 13.4 % (11.5-14.0); SEGMENTED NEUTROPHILS % (AUTO) 77.4 % (42-78); TOTAL CELLS COUNTED % (AUTO) 100 %; WHITE BLOOD COUNT 10.9 10^3/uL (4.0-10.5)
[2019-02-22] MEDS ORDERED: ONDANSETRON HCL INJ/PF 4 MG/2 ML SDV IV PRN (17:14)
[2019-02-22] MEDS ORDERED: TEMAZEPAM 15 MG CAPSULE PO PRN (17:14)
--- NOTE | 2019-02-22 17:34 | PDOC H&P ---
History of Present Illness History of Present Illness: ANTHONY MANRIQUEZ is a 89 year old female patient with past medical history of dementia and Parkinson's disease brought by her son after she involved in fall. Because of her underlying cognitive impairment brief history is obtained from ER attending note and her her son who was in the room during my encounter. Per ER attending note patient presented to the emergency department today with complaints of being found down on the ground in the bathroom this morning when her son came to check on her. Her son states that when he checked on her last night and she was fine, when he came over this morning she was in the bathroom, on the ground, with her legs draped over the shower " curb". Son states that patient is ambulatory at baseline and lives alone. Patient states t hat patient ambulates without cane or walker. Past Medical History Cardiac Medical History: Denies: Coronary Artery Disease, Myocardial Infarction, Hypertension Pulmonary Medical History: Reports: Bronchitis - 45 years ago, Pneumonia - 45 years ago Denies: Asthma, Chronic Obstructive Pulmonary Disease (COPD) Neurological Medical History: Denies: Seizures GI Medical History: Denies: Hepatitis, Hiatal Hernia Musculoskeltal Medical History: Denies: Arthritis Hematology: Denies: Anemia, Sickle Cell Disease Past Surgical History Past Surgical History: Reports: Hysterectomy Denies: Amputation, Mastectomy, Pacemaker Social History Lives with: Family Smoking Status: Former Smoker Hx Recreational Drug Use: No Hx Prescription Drug Abuse: No - Advance Directive Resuscitation Status: Do Not Resuscitate Family History Family History: Reviewed & Not Pertinent Parental Family History Reviewed: Yes Children Family History Reviewed: Yes Sibling(s) Family History Reviewed.: Yes Medication/Allergy Home Medications: Pravastatin Sodium [Pravachol] 40 mg PO QHS 12/09/18 Allergies/Adverse Reactions: codeine [Codeine] Allergy (Mild, Verified 02/19/18 10:33) Nausea, vomiting Review of Systems ROS unobtainable: Due to mental status Physical Exam Vital Signs: Temp Pulse Resp BP Pulse Ox 98.4 F 27 H 123/79 93 02/22/19 15:01 02/22/19 15:01 02/22/19 15:01 02/22/19 15:01 Intake & Output 02/21/19 02/22/19 02/23/19 06:59 06:59 06:59 Intake Total 1000 Balance 1000 Weight 44.452 kg General appearance: PRESENT: no acute distress Neck exam: ABSENT: carotid bruit, JVD, lymphadenopathy, thyromegaly Respiratory exam: PRESENT: clear to auscultation lizeth. ABSENT: rales, rhonchi, wheezes Cardiovascular exam: PRESENT: RRR. ABSENT: diastolic murmur, rubs, systolic murmur GI/Abdominal exam: PRESENT: normal bowel sounds, soft. ABSENT: distended, guarding, mass, organolmegaly, rebound, tenderness Neurological exam: PRESENT: alert, awake Results Laboratory Results: 02/22/19 14:10 02/22/19 14:10 02/22/19 02/22/19 02/22/19 14:10 14:10 14:10 WBC 10.9 H RBC 4.81 Hgb 14.4 Hct 43.1 MCV 90 MCH 29.9 MCHC 33.4 RDW 13.4 Plt Count 179 Seg Neutrophils % 77.4 Lymphocytes % 6.1 L Monocytes % 16.3 H Eosinophils % 0.0 Basophils % 0.2 Absolute Neutrophils 8.5 H Absolute Lymphocytes 0.7 Absolute Monocytes 1.8 H Absolute Eosinophils 0.0 Absolute Basophils 0.0 Sodium 147.6 H Potassium 3.7 Chloride 109 H Carbon Dioxide 27 Anion Gap 12 BUN 34 H Creatinine 0.78 Est GFR ( Amer) > 60 Est GFR (Non-Af Amer) > 60 Glucose 173 H Lactic Acid Calcium 9.9 Total Bilirubin 0.9 AST 70 H ALT 19 Alkaline Phosphatase 68 Total Protein 7.6 Albumin 4.6 Urine Color MARIANGEL Urine Appearance CLEAR Urine pH 6.0 Ur Specific [place] 1.034 Urine Protein >=500 H Urine Glucose (UA) NEGATIVE Urine Ketones 300 H Urine Blood LARGE H Urine Nitrite NEGATIVE Ur Leukocyte Esterase NEGATIVE Urine WBC (Auto) 5 Urine RBC (Auto) 3 02/22/19 15:32 WBC RBC Hgb Hct MCV MCH MCHC RDW Plt Count Seg Neutrophils % Lymphocytes % Monocytes % Eosinophils % Basophils % Absolute Neutrophils Absolute Lymphocytes Absolute Monocytes Absolute Eosinophils Absolute Basophils Sodium Potassium Chloride Carbon Dioxide Anion Gap BUN Creatinine Est GFR ( Amer) Est GFR (Non-Af Amer) Glucose Lactic Acid 1.5 Calcium Total Bilirubin AST ALT Alkaline Phosphatase Total Protein Albumin Urine Color Urine Appearance Urine pH Ur Specific [place] Urine Protein Urine Glucose (UA) Urine Ketones Urine Blood Urine Nitrite Ur Leukocyte Esterase Urine WBC (Auto) Urine RBC (Auto) 02/22/19 02/22/19 14:10 14:10 Creatine Kinase 3830 H CK-MB (CK-2) 31.50 H Troponin I 0.202 Impressions: Foot X-Ray 02/22/19 00:00 IMPRESSION: No acute fracture or malalignment. Hallux valgus deformity. Chest X-Ray 02/22/19 13:51 IMPRESSION: NO ACUTE RADIOGRAPHIC FINDING IN THE CHEST. Assessment and Plan - Diagnosis (1) Atrial fibrillation with RVR Is this a current diagnosis for this admission?: Yes Plan: New onset A. fib. I will put her on Cardizem p.o. 60 mg twice daily. Because of fall and and her age patient is not a candidate for anticoagulation. (2) Rhabdomyolysis Is this a current diagnosis for this admission?: Yes Plan: Patient has been started on normal saline and she will be treated gently. And I will check her CK level in the morning. (3) Parkinsons disease Is this a current diagnosis for this admission?: Yes Plan: Continue her home and follow-up with her primary neurologist. (4) Dementia Is this a current diagnosis for this admission?: Yes Plan: Stable
[2019-02-22] MEDS ORDERED: DILTIAZEM HCL 60 MG TABLET PO ONE (17:35)
--- NOTE | 2019-02-22 17:40 | ADVANCED CARE ---
Resuscitation Status: Do Not Resuscitate Discussion: I discussed the CODE STATUS of the patient with her son who is a surrogate decision-maker. Is a circumstance of cardio respiratory arrest, her son states she does not want any life resuscitative measures. She is willing except interventions short of CPR, intubation or PEG tube placement. Care Planning Goals: DNR/DNI Patient can medications, oxygen for respiratory problems, and nutrition supplement.
--- NOTE | 2019-02-22 19:20 | EKG REPORT ---
SEVERITY:- ABNORMAL ECG - SINUS TACHYCARDIA FIRST DEGREE AV BLOCK PROMINENT P WAVES, NONDIAGNOSTIC LEFT BUNDLE BRANCH BLOCK : Confirmed by: Vesna High MD 22-Feb-2019 19:20:37
--- NOTE | 2019-02-22 19:22 | EKG REPORT ---
SEVERITY:- ABNORMAL ECG - WIDE COMPLEX TACHYCARDIA LEFT BUNDLE BRANCH BLOCK : Confirmed by: Vesna High MD 22-Feb-2019 19:20:41
[2019-02-22] MEDS: DILTIAZEM HCL 60 MG TABLET PO SCH (23:17)
[2019-02-22] MEDS: FAMOTIDINE 20 MG TABLET PO SCH (23:20)
[2019-02-22] MEDS: NORMAL SALINE 1000 ML 1,000 ML IV PRN (23:20)
[2019-02-23] MEDS: ACETAMINOPHEN 325 MG TABLET PO PRN ×2 (04:52→23:00)
[2019-02-23 07:37] LABS: MEAN CORPUSCULAR VOLUME 90 fl (80-97)
[2019-02-23 07:57] LABS: ABSOLUTE LYMPHOCYTES (AUTO) 1.9 10^3/uL (0.5-4.7); ABSOLUTE MONOCYTES (AUTO) 1.6 10^3/uL (0.1-1.4); ABSOLUTE NEUT (AUTO) 7.7 10^3/uL (1.7-8.2); BASOPHILS % (AUTO) 0.2 % (0-2); EOSINOPHILS % (AUTO) 0.1 % (0-6); HEMATOCRIT 35.2 % (36.0-47.0); LYMPHOCYTES % (AUTO) 16.5 % (13-45); MEAN CORPUSCULAR HGB CONC 33.3 g/dL (32.0-36.0); MONOCYTES % (AUTO) 14.6 % (3-13); PLATELET COUNT 143 10^3/uL (150-450); RED BLOOD COUNT 3.91 10^6/uL (3.72-5.28); RED CELL DISTRIBUTION WIDTH 13.5 % (11.5-14.0); SEGMENTED NEUTROPHILS % (AUTO) 68.6 % (42-78); TOTAL CELLS COUNTED % (AUTO) 100 %; WHITE BLOOD COUNT 11.2 10^3/uL (4.0-10.5)
[2019-02-23 08:00] LABS: ANION GAP 6 (5-19); BLOOD UREA NITROGEN 21 mg/dL (7-20); CALCIUM 8.6 mg/dL (8.4-10.2); CARBON DIOXIDE 26 mmol/L (22-30); CHLORIDE 110 mmol/L (98-107); GLUCOSE 109 mg/dL (75-110); POTASSIUM 3.5 mmol/L (3.6-5.0)
[2019-02-23 08:05] LABS: HEMOGLOBIN 11.7 g/dL (12.0-15.5)
[2019-02-23] MEDS: NORMAL SALINE 1000 ML 1,000 ML IV PRN (11:06)
[2019-02-23] MEDS: ENOXAPARIN SODIUM INJ 30 MG/0.3 ML DISP.SYRIN SUBCUT SCH (11:10)
[2019-02-23] MEDS: DOCUSATE SODIUM 100 MG/10 ML UDC PO SCH ×3 (11:13→18:39)
[2019-02-23] MEDS: FAMOTIDINE 20 MG TABLET PO SCH ×2 (11:13→23:00)
[2019-02-23] MEDS: DILTIAZEM HCL 60 MG TABLET PO SCH ×2 (11:14→23:04)
--- NOTE | 2019-02-23 17:05 | PDOC PROGRESS REPORT ---
Subjective Progress Note for:: 02/23/19 Subjective:: ANTHONY MANRIQUEZ is a 89 year old female patient with past medical history of dementia and Parkinson's disease brought by her son after she involved in fall. Because of her underlying cognitive impairment brief history is obtained from ER attending note and her her son who was in the room during my encounter. Per ER attending note patient presented to the emergency department today with complaints of being found down on the ground in the bathroom this morning when her son came to check on her. Her son states that when he checked on her last night and she was fine, when he came over this morning she was in the bathroom, on the ground, with her legs draped over the shower " curb". Son states that patient is ambulatory at baseline and lives alone. Patient states that patient ambulates without cane or walker. 02/23/2019: Patient seen this morning resting in bed comfortably. She is awake and alert. She has been surrounded by family members. Her vital signs are stable. Reason For Visit: RHABDOMYOLYSIS Physical Exam Vital Signs: Temp Pulse Resp BP Pulse Ox 98.3 F 62 16 113/53 L 94 02/23/19 11:25 02/23/19 11:25 02/23/19 11:25 02/23/19 11:25 02/23/19 11:25 Intake & Output 02/22/19 02/23/19 02/24/19 06:59 06:59 06:59 Intake Total 1999 1000 Balance 1999 1000 Weight 44.452 kg 61.008 kg General appearance: PRESENT: no acute distress Head exam: PRESENT: atraumatic Eye exam: PRESENT: conjunctiva pink Neck exam: ABSENT: carotid bruit, JVD, lymphadenopathy, thyromegaly Respiratory exam: PRESENT: clear to auscultation lizeth. ABSENT: rales, rhonchi, wheezes Cardiovascular exam: PRESENT: RRR. ABSENT: diastolic murmur, rubs, systolic murmur Neurological exam: PRESENT: alert, awake Results Laboratory Results: 02/23/19 06:53 02/23/19 06:53 02/23/19 02/23/19 02/23/19 06:53 06:53 06:53 WBC 11.2 H RBC 3.91 Hgb 11.7 L D Hct 35.2 L MCV 90 MCH 30.0 MCHC 33.3 RDW 13.5 Plt Count 143 L Seg Neutrophils % 68.6 Lymphocytes % 16.5 Monocytes % 14.6 H Eosinophils % 0.1 Basophils % 0.2 Absolute Neutrophils 7.7 Absolute Lymphocytes 1.9 Absolute Monocytes 1.6 H Absolute Eosinophils 0.0 Absolute Basophils 0.0 Sodium 142.0 Potassium 3.5 L Chloride 110 H Carbon Dioxide 26 Anion Gap 6 BUN 21 H Creatinine 0.49 L Est GFR ( Amer) > 60 Est GFR (Non-Af Amer) > 60 Glucose 109 Calcium 8.6 TSH 1.03 02/22/19 02/22/19 02/22/19 14:10 14:10 17:22 Creatine Kinase 3830 H CK-MB (CK-2) 31.50 H Troponin I 0.202 0.236 02/23/19 06:53 Creatine Kinase CK-MB (CK-2) 26.30 H Troponin I Impressions: Foot X-Ray 02/22/19 00:00 IMPRESSION: No acute fracture or malalignment. Hallux valgus deformity. Chest X-Ray 02/22/19 13:51 IMPRESSION: NO ACUTE RADIOGRAPHIC FINDING IN THE CHEST. Assessment and Plan - Diagnosis (1) Atrial fibrillation with RVR Is this a current diagnosis for this admission?: Yes Plan: Now rate controlled (2) Rhabdomyolysis Is this a current diagnosis for this admission?: Yes Plan: Improving (3) Parkinsons disease Is this a current diagnosis for this admission?: Yes Plan: Continue her home and follow-up with her primary neurologist. (4) Dementia Is this a current diagnosis for this admission?: Yes Plan: Stable
[2019-02-24] MEDS: ENOXAPARIN SODIUM INJ 30 MG/0.3 ML DISP.SYRIN SUBCUT SCH (09:46)
[2019-02-24] MEDS: DOCUSATE SODIUM 100 MG/10 ML UDC PO SCH ×2 (09:47→17:41)
[2019-02-24] MEDS: FAMOTIDINE 20 MG TABLET PO SCH ×2 (09:47→21:44)
[2019-02-24] MEDS: DILTIAZEM HCL 60 MG TABLET PO SCH ×2 (09:48→21:44)
--- NOTE | 2019-02-24 12:57 | PDOC PROGRESS REPORT ---
Subjective Progress Note for:: 02/24/19 Subjective:: ANTHONY MANRIQUEZ is a 89 year old female patient with past medical history of dementia and Parkinson's disease brought by her son after she involved in fall. Because of her underlying cognitive impairment brief history is obtained from ER attending note and her her son who was in the room during my encounter. Per ER attending note patient presented to the emergency department today with complaints of being found down on the ground in the bathroom this morning when her son came to check on her. Her son states that when he checked on her last night and she was fine, when he came over this morning she was in the bathroom, on the ground, with her legs draped over the shower " curb". Son states that patient is ambulatory at baseline and lives alone. Patient states that patient ambulates without cane or walker. 02/23/2019: Patient seen this morning resting in bed comfortably. She is awake and alert. She has been surrounded by family members. Her vital signs are stable. 02/24/2019: Patient seen while she is sitting on recliner. She complains of right ankle pain. Her vitals are stable she eats well and she tolerates well. Reason For Visit: RHABDOMYOLYSIS Physical Exam Vital Signs: Temp Pulse Resp BP Pulse Ox 99.2 F 83 16 130/44 H 91 L 02/23/19 20:00 02/23/19 20:00 02/23/19 20:00 02/23/19 20:00 02/23/19 20:00 Intake & Output 02/23/19 02/24/19 02/25/19 06:59 06:59 06:59 Intake Total 1999 1836 Balance 1999 1836 Weight 44.452 kg 61.2 kg General appearance: PRESENT: no acute distress Mouth exam: PRESENT: moist Neck exam: ABSENT: carotid bruit, JVD, lymphadenopathy, thyromegaly Respiratory exam: PRESENT: clear to auscultation lizeth. ABSENT: rales, rhonchi, wheezes GI/Abdominal exam: PRESENT: normal bowel sounds, soft. ABSENT: distended, guarding, mass, organolmegaly, rebound, tenderness Neurological exam: PRESENT: alert, awake Results Laboratory Results: 02/23/19 06:53 02/23/19 06:53 02/22/19 14:10 Catheterized Urine Urine Culture - Final 6,000 col/ml 02/22/19 02/22/19 02/22/19 14:10 14:10 17:22 Creatine Kinase 3830 H CK-MB (CK-2) 31.50 H Troponin I 0.202 0.236 02/23/19 06:53 Creatine Kinase CK-MB (CK-2) 26.30 H Troponin I Impressions: Foot X-Ray 02/22/19 00:00 IMPRESSION: No acute fracture or malalignment. Hallux valgus deformity. Chest X-Ray 02/22/19 13:51 IMPRESSION: NO ACUTE RADIOGRAPHIC FINDING IN THE CHEST. Assessment and Plan - Diagnosis (1) Atrial fibrillation with RVR Is this a current diagnosis for this admission?: Yes Plan: Now rate controlled (2) Rhabdomyolysis Is this a current diagnosis for this admission?: Yes Plan: Improving (3) Parkinsons disease Is this a current diagnosis for this admission?: Yes Plan: Continue her home and follow-up with her primary neurologist. (4) Dementia Is this a current diagnosis for this admission?: Yes Plan: Stable
--- NOTE | 2019-02-24 13:39 | RADIOLOGY REPORT (SQ) ---
EXAM DESCRIPTION: ANKLE RIGHT COMPLETE COMPLETED DATE/TIME: 02/24/2019 1:11 pm REASON FOR STUDY: new onset pain during ambulation COMPARISON: None. NUMBER OF VIEWS: Three views. TECHNIQUE: AP, lateral, and oblique radiographic images acquired of the right ankle. LIMITATIONS: None. FINDINGS: MINERALIZATION: Decrease. BONES: No acute fracture or dislocation. No worrisome bone lesions. Mild midfoot degenerative thornton e. JOINTS: No effusions. SOFT TISSUES: No soft tissue swelling. No foreign body. OTHER: No other significant finding. IMPRESSION: No evidence of acute bony abnormality. TECHNICAL DOCUMENTATION: JOB ID: [id number] [employer]- All Rights Reserved Reading location - IP/workstation name: [email or web address]
[2019-02-24] MEDS: NORMAL SALINE 1000 ML 1,000 ML IV PRN (21:46)
[2019-02-25] MEDS: NORMAL SALINE 1000 ML 1,000 ML IV PRN ×2 (05:29→20:58)
[2019-02-25 06:31] LABS: ANION GAP 6 (5-19); BLOOD UREA NITROGEN 12 mg/dL (7-20); CALCIUM 8.6 mg/dL (8.4-10.2); CARBON DIOXIDE 28 mmol/L (22-30); CHLORIDE 107 mmol/L (98-107); CREATINE KINASE 864 U/L (30-135); GLUCOSE 111 mg/dL (75-110); POTASSIUM 3.7 mmol/L (3.6-5.0); SODIUM 140.8 mmol/L (137-145)
[2019-02-25] MEDS: DOCUSATE SODIUM 100 MG/10 ML UDC PO SCH (11:03)
[2019-02-25] MEDS: FAMOTIDINE 20 MG TABLET PO SCH ×2 (11:04→20:59)
[2019-02-25] MEDS: DILTIAZEM HCL 60 MG TABLET PO SCH ×2 (11:05→20:59)
[2019-02-25] MEDS: ENOXAPARIN SODIUM INJ 30 MG/0.3 ML DISP.SYRIN SUBCUT SCH (11:08)
--- NOTE | 2019-02-25 13:37 | PDOC PROGRESS REPORT ---
Subjective Progress Note for:: 02/25/19 Subjective:: ANTHONY MANRIQUEZ is a 89 year old female patient with past medical history of dementia and Parkinson's disease brought by her son after she involved in fall. Because of her underlying cognitive impairment brief history is obtained from ER attending note and her her son who was in the room during my encounter. Per ER attending note patient presented to the emergency department today with complaints of being found down on the ground in the bathroom this morning when her son came to check on her. Her son states that when he checked on her last night and she was fine, when he came over this morning she was in the bathroom, on the ground, with her legs draped over the shower " curb". Son states that patient is ambulatory at baseline and lives alone. Patient states that patient ambulates without cane or walker. 02/23/2019: Patient seen this morning resting in bed comfortably. She is awake and alert. She has been surrounded by family members. Her vital signs are stable. 02/24/2019: Patient seen while she is sitting on recliner. She complains of right ankle pain. Her vitals are stable she eats well and she tolerates well. 02/25/2019: Patient seen while she is participating with physical therapy and also resting on recliner. No new complaints. Her creatinine kinase is trending down. I will keep her on normal saline at rate of 135 mm/h. And check her CK in the morning. Reason For Visit: RHABDOMYOLYSIS Physical Exam Vital Signs: Temp Pulse Resp BP Pulse Ox 98.3 F 69 27 H 128/53 H 90 L 02/25/19 07:44 02/25/19 07:44 02/25/19 07:44 02/25/19 07:44 02/25/19 07:44 Intake & Output 02/24/19 02/25/19 02/26/19 06:59 06:59 06:59 Intake Total 1836 2662 Balance 1836 2662 Weight 61.2 kg 62.2 kg General appearance: PRESENT: no acute distress Head exam: PRESENT: atraumatic Neck exam: ABSENT: carotid bruit, JVD, lymphadenopathy, thyromegaly Respiratory exam: PRESENT: clear to auscultation lizeth. ABSENT: rales, rhonchi, wheezes Cardiovascular exam: PRESENT: RRR. ABSENT: diastolic murmur, rubs, systolic murmur GI/Abdominal exam: PRESENT: normal bowel sounds, soft. ABSENT: distended, guarding, mass, organolmegaly, rebound, tenderness Neurological exam: PRESENT: alert, awake Results Laboratory Results: 02/23/19 06:53 02/25/19 05:45 02/25/19 05:45 Sodium 140.8 Potassium 3.7 Chloride 107 Carbon Dioxide 28 Anion Gap 6 BUN 12 Creatinine 0.51 L Est GFR ( Amer) > 60 Est GFR (Non-Af Amer) > 60 Glucose 111 H Calcium 8.6 02/22/19 14:10 Catheterized Urine Urine Culture - Final 6,000 col/ml 02/22/19 02/22/19 02/22/19 14:10 14:10 17:22 Creatine Kinase 3830 H CK-MB (CK-2) 31.50 H Troponin I 0.202 0.236 02/23/19 02/25/19 06:53 05:45 Creatine Kinase 864 H CK-MB (CK-2) 26.30 H Troponin I Impressions: Foot X-Ray 02/22/19 00:00 IMPRESSION: No acute fracture or malalignment. Hallux valgus deformity. Chest X-Ray 02/22/19 13:51 IMPRESSION: NO ACUTE RADIOGRAPHIC FINDING IN THE CHEST. Ankle X-Ray 02/24/19 10:39 IMPRESSION: No evidence of acute bony abnormality. Assessment and Plan - Diagnosis (1) Atrial fibrillation with RVR Is this a current diagnosis for this admission?: Yes Plan: Now rate controlled (2) Rhabdomyolysis Is this a current diagnosis for this admission?: Yes Plan: Improving (3) Parkinsons disease Is this a current diagnosis for this admission?: Yes Plan: Continue her home and follow-up with her primary neurologist. (4) Dementia Is this a current diagnosis for this admission?: Yes Plan: Stable
[2019-02-25] MEDS ORDERED: ONDANSETRON HCL INJ/PF 4 MG/2 ML SDV IV PRN (14:00)
[2019-02-25] MEDS: DOCUSATE SODIUM 100 MG CAPSULE PO SCH (19:23)
[2019-02-26] MEDS: NORMAL SALINE 1000 ML 1,000 ML IV PRN (05:11)
[2019-02-26] MEDS: FAMOTIDINE 20 MG TABLET PO SCH (10:05)
[2019-02-26] MEDS: DILTIAZEM HCL 60 MG TABLET PO SCH (10:05)
[2019-02-26] MEDS: DOCUSATE SODIUM 100 MG CAPSULE PO SCH (10:05)
[2019-02-26] MEDS: ENOXAPARIN SODIUM INJ 30 MG/0.3 ML DISP.SYRIN SUBCUT SCH (10:06)
[2019-02-26] MEDS ORDERED: NORMAL SALINE 1000 ML 1,000 ML IV PRN (11:06)
--- NOTE | 2019-02-26 11:13 | PDOC TRANSFER SUMMARY ---
General - Admit/Disc Date/PCP Admission Date/Primary Care Provider: 02/22/19 17:43 Discharge Date: 02/26/19 - Discharge Diagnosis (1) Atrial fibrillation with RVR Is this a current diagnosis for this admission?: Yes (2) Rhabdomyolysis Is this a current diagnosis for this admission?: Yes (3) Parkinsons disease Is this a current diagnosis for this admission?: Yes (4) Dementia Is this a current diagnosis for this admission?: Yes - Additional Information Resuscitation Status: Do Not Resuscitate Home Medications: Pravastatin Sodium [Pravachol] 20 mg PO QHS 02/22/19 History of Present Illness Admission Date/PCP: 02/22/19 17:43 History of Present Illness: ANTHONY MARNIQUEZ is a 89 year old female patient with past medical history of dementia and Parkinson's disease brought by her son after she involved in fall. Because of her underlying cognitive impairment brief history is obtained from ER attending note and her her son who was in the room during my encounter. Per ER attending note patient presented to the emergency department today with complaints of being found down on the ground in the bathroom this morning when her son came to check on her. Her son states that when he checked on her last night and she was fine, when he came over this morning she was in the bathroom, on the ground, with her legs draped over the shower " curb". Son states that patient is ambulatory at baseline and lives alone. Patient states that patient ambulates without cane or walker. Hospital Course Hospital Course: ANTHONY MANRIQUEZ is a 89 year old female patient with past medical history of dementia and Parkinson's disease brought by her son after she involved in fall. Because of her underlying cognitive impairment brief history is obtained from ER attending note and her her son who was in the room during my encounter. Per ER attending note patient presented to the emergency department today with complaints of being found down on the ground in the bathroom this morning when her son came to check on her. Her son states that when he checked on her last night and she was fine, when he came over this morning she was in the bathroom, on the ground, with her legs draped over the shower " curb". Son states that patient is ambulatory at baseline and lives alone. Patient states that patient ambulates without cane or walker. 02/23/2019: Patient seen this morning resting in bed comfortably. She is awake and alert. She has been surrounded by family members. Her vital signs are stable. 02/24/2019: Patient seen while she is sitting on recliner. She complains of right ankle pain. Her vitals are stable she eats well and she tolerates well. 02/25/2019: Patient seen while she is participating with physical therapy and also resting on recliner. No new complaints. Her creatinine kinase is trending down. I will keep her on normal saline at rate of 135 mm/h. And check her CK in the morning. : Patient has been doing well. She is awake alert oriented. Her vitals are stable. Her CK level is trending down markedly almost normalized. Patient is stable enough [facility] I will continue all her home medication and I will send her also with Cardizem 60 mg p.o. every 12 hours. Physical Exam Vital Signs: Temp Pulse Resp BP Pulse Ox 99.3 F 80 20 132/70 H 93 02/26/19 07:27 02/26/19 07:27 02/26/19 07:27 02/26/19 07:27 02/26/19 07:27 Intake & Output 02/25/19 02/26/19 02/27/19 06:59 06:59 06:59 Intake Total 2662 2476 Balance 2662 2476 Weight 62.2 kg 61.8 kg General appearance: PRESENT: no acute distress Head exam: PRESENT: atraumatic Neck exam: ABSENT: carotid bruit, JVD, lymphadenopathy, thyromegaly Respiratory exam: PRESENT: clear to auscultation lizeth. ABSENT: rales, rhonchi, wheezes GI/Abdominal exam: PRESENT: normal bowel sounds, soft. ABSENT: distended, guarding, mass, organolmegaly, rebound, tenderness Neurological exam: PRESENT: alert, awake Results Laboratory Results: 02/23/19 06:53 02/25/19 05:45 02/22/19 02/22/19 02/22/19 14:10 14:10 17:22 Creatine Kinase 3830 H CK-MB (CK-2) 31.50 H Troponin I 0.202 0.236 02/23/19 02/25/19 02/26/19 06:53 05:45 05:22 Creatine Kinase 864 H 286 H CK-MB (CK-2) 26.30 H Troponin I Impressions: Foot X-Ray 02/22/19 00:00 IMPRESSION: No acute fracture or malalignment. Hallux valgus deformity. Chest X-Ray 02/22/19 13:51 IMPRESSION: NO ACUTE RADIOGRAPHIC FINDING IN THE CHEST. Ankle X-Ray 02/24/19 10:39 IMPRESSION: No evidence of acute bony abnormality. Qualifiers - * PATIENT BEING DISCHARGED WITH ANY OF THE FOLLOWING DIAGNOSIS: No Acute Heart Failure - Is this a Heart Failure Patient?: No LVEF < 40%?: No- if no continue to question #3 3. Anticoagulant therapy for permanect/persistent/paraoxysmal Afib or Aflutter: N/A
[2019-02-26 12:28] VITALS: BP 143/62
== END 2019-02-26 17:00 | DRG 566 ==
LOC: ER 12:56 → EH 17:43 → 4S 22:54
PROVIDERS: ADMIT Internal Medicine; ATTEND Internal Medicine
DX: T79.6XXA Traumatic ischemia of muscle, initial encounter (principal); G20 Parkinson's disease; F02.80 Dementia in other diseases classified elsewhere, unspecified severity, without behavioral disturbance, psychotic disturbance, mood disturbance, and anxiety; W18.30XA Fall on same level, unspecified, initial encounter; Y92.002 Bathroom of unspecified non-institutional (private) residence as the place of occurrence of the external cause; I48.0 Paroxysmal atrial fibrillation; E86.0 Dehydration; Z66 Do not resuscitate; Z79.899 Other long term (current) drug therapy; Z87.891 Personal history of nicotine dependence; Z88.6 Allergy status to analgesic agent
CPT/HCPCS: 36415; 71045; 80048; 80053; 81001; 82550; 82553; 83605; 84443; 84484; 85025; 87040; 87086; 93005; 93010; 96360; 96361; 99285; J7030

== ENCOUNTER 2019-05-06 18:34 | Inpatient (IN) | payer MEDICARE ==
[2019-05-06 19:00] LABS: HEMATOCRIT 38.5 % (36.0-47.0); HEMOGLOBIN 12.6 g/dL (12.0-15.5); MEAN CORPUSCULAR HGB CONC 32.7 g/dL (32.0-36.0); MEAN CORPUSCULAR VOLUME 86 fl (80-97); PLATELET COUNT 409 10^3/uL (150-450); RED BLOOD COUNT 4.49 10^6/uL (3.72-5.28); RED CELL DISTRIBUTION WIDTH 14.2 % (11.5-14.0); WHITE BLOOD COUNT 15.8 10^3/uL (4.0-10.5)
[2019-05-06 19:14] LABS: ALBUMIN 3.8 g/dL (3.5-5.0); ALKALINE PHOSPHATASE 86 U/L (38-126); ANION GAP 12 (5-19); ASPARTATE AMINO TRANSFERASE 30 U/L (14-36); BILIRUBIN,DIRECT 0.2 mg/dL (0.0-0.4); BILIRUBIN,TOTAL 0.5 mg/dL (0.2-1.3); BLOOD UREA NITROGEN 16 mg/dL (7-20); CALCIUM 9.9 mg/dL (8.4-10.2); CARBON DIOXIDE 29 mmol/L (22-30); CHLORIDE 98 mmol/L (98-107); GLUCOSE 131 mg/dL (75-110); POTASSIUM 4.7 mmol/L (3.6-5.0); TOTAL PROTEIN 6.9 g/dL (6.3-8.2)
[2019-05-06 19:22] LABS: ABSOLUTE LYMPHOCYTES# (MANUAL) 0.5 10^3/uL (0.5-4.7); ABSOLUTE MONOCYTES # (MANUAL) 0.6 10^3/uL (0.1-1.4); BASOPHILS % (MANUAL) 0 % (0-2); EOSINOPHILS % (MANUAL) 0 % (0-6); LYMPHOCYTES % (MANUAL) 3 % (13-45); MONOCYTES % (MANUAL) 4 % (3-13); SEGMENTED NEUTROPHILS % (MAN) 93 % (42-78); TOTAL CELLS COUNTED 100
[2019-05-06 19:24] LABS: PLATELET COMMENT ADEQUATE
--- NOTE | 2019-05-06 19:36 | RADIOLOGY REPORT (SQ) ---
EXAM DESCRIPTION: CHEST SINGLE VIEW COMPLETED DATE/TIME: 05/06/2019 7:08 pm REASON FOR STUDY: SOB COMPARISON: 02/22/2019 TECHNIQUE: Single frontal radiographic view of the chest acquired. NUMBER OF VIEWS: One view. LIMITATIONS: None. FINDINGS: LUNGS AND PLEURA: No pneumothorax. Bilateral medial basilar consolidation and trace right pleural effusion. MEDIASTINUM AND HILAR STRUCTURES: Stable. HEART AND VASCULAR STRUCTURES: Stable. BONES: No acute findings. HARDWARE: None in the chest. OTHER: No other significant finding. IMPRESSION: Bilateral medial basilar consolidation and trace right pleural effusion. TECHNICAL DOCUMENTATION: JOB ID: [id number] 2010 [employer]- All Rights Reserved Reading location - IP/workstation name: [email or web address]
[2019-05-06] MEDS ORDERED: VANCOMYCIN HCL INJ 1000 MG VIAL IV ONE ×2 (20:41→23:59)
[2019-05-06] MEDS ORDERED: PIPERACILLIN/TAZOBACTAM 3.375 GM VIAL IV ONE ×2 (20:43→23:59)
--- NOTE | 2019-05-06 20:46 | ER Document Report ---
ED General - General Chief Complaint: Respiratory Distress Stated Complaint: DIFFICULTY BREATHING Time Seen by Provider: 05/06/19 20:38 TRAVEL OUTSIDE OF THE [place] IN LAST 30 DAYS: No - HPI Notes: Patient presents from long term assisted care facility with onset of fever shortness of breath cough congestion with sputum production that started today. Patient is DNR/DNI per family is requesting paperwork today. She was found to be at 86% on room air with 100 one fever was placed on BiPAP is doing well after that is 100% with BiPAP on. Patient does have a history of dementia. Was not sick prior to today per the family. - Related Data Allergies/Adverse Reactions: codeine [Codeine] Allergy (Mild, Verified 02/19/18 10:33) Nausea, vomiting Past Medical History - Social History Smoking Status: Unknown if Ever Smoked Family History: Reviewed & Not Pertinent - Past Medical History Cardiac Medical History: Denies: Hx Coronary Artery Disease, Hx Heart Attack, Hx Hypertension Pulmonary Medical History: Reports: Hx Bronchitis - 45 years ago, Hx Pneumonia - 45 years ago Denies: Hx Asthma, Hx COPD Neurological Medical History: Denies: Hx Cerebrovascular Accident, Hx Seizures Renal/ Medical History: Denies: Hx Peritoneal Dialysis GI Medical History: Denies: Hx Hepatitis, Hx Hiatal Hernia, Hx Ulcer Musculoskeletal Medical History: Denies Hx Arthritis Psychiatric Medical History: Denies: Hx Depression Infectious Medical History: Denies: Hx Hepatitis Past Surgical History: Reports: Hx Hysterectomy. Denies: Hx Mastectomy, Hx Open Heart Surgery, Hx Pacemaker - Immunizations Hx Diphtheria, Pertussis, Tetanus Vaccination: No Hx Pneumococcal Vaccination: 08/18/08 Review of Systems - Review of Systems -: Yes ROS unobtainable due to patient's medical condition Physical Exam - Vital signs Vitals: Pulse Ox 92 05/06/19 18:45 - General General appearance: Appears well, Alert - HEENT Head: Normocephalic, Atraumatic Eyes: Normal Conjunctiva: Normal Cornea: Normal Pupils: PERRL - Respiratory Respiratory status: Respiratory distress Chest status: Nontender Breath sounds: Productive cough, Wheezing - Cardiovascular Rhythm: Tachycardia Heart sounds: Normal auscultation Murmur: No - Abdominal Inspection: Normal Distension: No distension Bowel sounds: Normal Tenderness: Nontender - Back Back: Normal, Nontender - Extremities General upper extremity: Normal inspection, Normal ROM General lower extremity: Normal inspection, Normal ROM Course - Re-evaluation Re-evalutation: 05/06/19 22:13 admit for PNA - Vital Signs Vital signs: Temp Pulse Resp BP Pulse Ox 98.6 F 91 25 H 118/49 L 93 05/10/19 12:00 05/10/19 12:00 05/10/19 12:00 05/10/19 12:00 05/10/19 12:00 - Laboratory Result Diagrams: 05/09/19 05:46 05/09/19 05:46 Laboratory results interpreted by me: 05/06/19 05/06/19 05/06/19 17:40 17:40 17:40 WBC 15.8 H RDW 14.2 H Seg Neuts % (Manual) 93 H Lymphocytes % (Manual) 3 L Abs Neuts (Manual) 14.7 H ABG pO2 ABG HCO3 ABG Total CO2 ABG O2 Saturation Glucose 131 H Lactic Acid Creatine Kinase 24 L Urine Ketones Urine Urobilinogen 05/06/19 05/06/19 05/06/19 22:23 22:23 22:23 WBC RDW Seg Neuts % (Manual) Lymphocytes % (Manual) Abs Neuts (Manual) ABG pO2 190.8 H ABG HCO3 25.5 H ABG Total CO2 26.8 H ABG O2 Saturation 99.3 H Glucose Lactic Acid 3.9 H Creatine Kinase Urine Ketones TRACE H Urine Urobilinogen 4.0 H Discharge - Discharge Clinical Impression: Respiratory distress, Pneumonia Disposition: ADMITTED INPATIENT Admitting Provider: Vincenzo (Hospitalist) Unit Admitted: Medical Floor
[2019-05-06 21:50] LABS: CREATINE KINASE MB 0.65 ng/mL (<4.55); TROPONIN I 0.023 ng/mL
[2019-05-06 22:42] LABS: ARTERIAL BLOOD BASE EXCESS 0.4 mmol/L; ARTERIAL BLOOD H2CO3 1.29 mmol/L (1.05-1.35); ARTERIAL BLOOD HCO3 25.5 mmol/L (20-24); ARTERIAL BLOOD O2 SATURATION 99.3 % (94-98); ARTERIAL BLOOD PCO2 42.8 mmHg (35-45); ARTERIAL BLOOD PH 7.39 (7.35-7.45); ARTERIAL BLOOD PO2 190.8 mmHg (80-100); ARTERIAL BLOOD TOTAL CO2 26.8 mmol/L (21-25)
[2019-05-06 22:52] LABS: ARTERIAL BLOOD FIO2 100%
[2019-05-06 23:00] LABS: A TYPE INFLUENZA AG NEGATIVE (NEGATIVE); B INFLUENZA AG NEGATIVE (NEGATIVE)
[2019-05-06 23:10] LABS: APPEARANCE,URINE CLEAR; BILIRUBIN,URINE NEGATIVE (NEGATIVE); COLOR,URINE AMBER; GLUCOSE, URINE NEGATIVE (NEGATIVE); KETONES,URINE TRACE mg/dL (NEGATIVE); LEUKOCYTE ESTERASE,URINE NEGATIVE (NEGATIVE); NITRITE,URINE NEGATIVE (NEGATIVE); PROTEIN,URINE NEGATIVE (NEGATIVE)
[2019-05-06] MEDS ORDERED: ACETAMINOPHEN 325 MG TABLET PO PRN (23:10)
[2019-05-06] MEDS ORDERED: GUAIFENESIN SYRP 200 MG/10 ML UDC PO PRN (23:10)
[2019-05-06] MEDS ORDERED: MAGNESIUM HYDROXIDE SUSP 30 ML UDCUP PO PRN (23:17)
[2019-05-06] MEDS ORDERED: MORPHINE SULFATE 10 MG/ML INJ IV PRN (23:17)
[2019-05-06] MEDS ORDERED: MAG HYDROX/AL HYDROX/SIMETH SUSP 30 ML UDCUP PO PRN (23:17)
--- NOTE | 2019-05-06 23:58 | EKG REPORT ---
SEVERITY:- ABNORMAL ECG - SINUS TACHYCARDIA ATRIAL PREMATURE COMPLEX LEFT BUNDLE BRANCH BLOCK : Confirmed by: Mahendra Allred MD 06-May-2019 23:57:14
[2019-05-07] MEDS ORDERED: MORPHINE SULFATE 10 MG/ML INJ IV PRN ×3 (00:08→00:09)
[2019-05-07] MEDS ORDERED: CEFTRIAXONE 1 GM/D5W RTU 1 GM/50 ML RTUPB IV ONE (01:00)
[2019-05-07] MEDS ORDERED: AZITHROMYCIN 500 MG in DEXTROSE 5%-WATER 250 ML IV ONE (01:00)
[2019-05-07 02:54] LABS: HEMATOCRIT 39.4 % (36.0-47.0); HEMOGLOBIN 12.4 g/dL (12.0-15.5); MEAN CORPUSCULAR HEMOGLOBIN 27.1 pg (27.0-33.4); MEAN CORPUSCULAR HGB CONC 31.5 g/dL (32.0-36.0); MEAN CORPUSCULAR VOLUME 86 fl (80-97); PLATELET COUNT 306 10^3/uL (150-450); RED BLOOD COUNT 4.58 10^6/uL (3.72-5.28); RED CELL DISTRIBUTION WIDTH 14.7 % (11.5-14.0); WHITE BLOOD COUNT 18.9 10^3/uL (4.0-10.5)
[2019-05-07 03:24] LABS: BLOOD UREA NITROGEN 19 mg/dL (7-20); CALCIUM 9.7 mg/dL (8.4-10.2); GLUCOSE 164 mg/dL (75-110); POTASSIUM 4.3 mmol/L (3.6-5.0)
[2019-05-07 03:25] LABS: ANION GAP 12 (5-19); CARBON DIOXIDE 29 mmol/L (22-30); CHLORIDE 99 mmol/L (98-107)
--- NOTE | 2019-05-07 04:28 | PDOC H&P ---
History of Present Illness Admission Date/PCP: 05/06/2019 22:16 JAMES DOUGLASS MD Patient complains of: Dyspnea History of Present Illness: ANTHONY MANRIQUEZ is a 89 year old female who presented from the group home with acute dyspnea. The patient has chronic dementia and is unable to provide reliable historical information. Her information is obtained from family members and other reliable available sources. She was found to be dyspneic this morning at the group home and was noted to have an accompanying cough with clear to yellowish sputum production and a fever of 101 F she was subsequently brought to the emergency room by her family. In the emergency room she was found to have hypoxia with an O2 sat of 86% on room air, a low-grade fever and a pneumonia per x-ray report. Family has requested that she be made a DNR/DNI. Patient was treated with BiPAP in the ER and will be admitted for further evaluation and treatment. Past Medical History Past Medical History: Due to her dementia patient is unable to provide accurate or reliable history for her past medical history, past surgical history, social history and family history. Best available sources are used to obtain the information presented here. Cardiac Medical History: Reports: Atrial Fibrillation - Paroxysmal atrial fibrillation Denies: Coronary Artery Disease, Myocardial Infarction, Hypertension Pulmonary Medical History: Reports: Bronchitis, Pneumonia Denies: Asthma, Chronic Obstructive Pulmonary Disease (COPD) EENT Medical History: Denies: Cataracts, Ears - Hearing aids Neurological Medical History: Denies: Multiple Sclerosis, Seizures Endocrine Medical History: Denies: Diabetes Mellitus Type 1, Diabetes Mellitus Type 2, Hyperthyroidism, Hypothyroidism, Obesity Renal/ Medical History: Denies: Chronic Kidney Disease, Nephrolithiasis Malignancy Medical History: Reports: None GI Medical History: Denies: Hepatitis, Hiatal Hernia Musculoskeltal Medical History: Denies: Arthritis, Gout Skin Medical History: Denies: Eczema, Psoriasis Psychiatric Medical History: Reports: Dementia, Tobacco Dependency Denies: Alcohol Dependency, Depression, Substance Abuse Traumatic Medical History: Reports: None Hematology: Denies: Anemia, Bleeding Tendencies Infectious Medical History: Reports: None Past Surgical History Past Surgical History: Due to her dementia patient is unable to provide accurate or reliable history fo r her past medical history, past surgical history, social history and family history. Best available sources are used to obtain the information presented here. Past Surgical History: Reports: Hysterectomy Social History Information Source: Relative Lives with: Long-Term Smoking Status: Former Smoker Frequency of Alcohol Use: None Hx Recreational Drug Use: No Drugs: None Hx Prescription Drug Abuse: No Past Social History Note: Due to her dementia patient is unable to provide accurate or reliable history for her past medical history, past surgical history, social history and family history. Best available sources are used to obtain the information presented here. - Advance Directive Resuscitation Status: Do Not Resuscitate Surrogate healthcare decision maker:: Roosevelt Manriquez Family History Family History: Other - None reported Family History: Due to her dementia patient is unable to provide accurate or reliable history for her past medical history, past surgical history, social history and family history. Best available sources are used to obtain the information presented here. Parental Family History Reviewed: Yes Children Family History Reviewed: No Sibling(s) Family History Reviewed.: Yes Medication/Allergy Home Medications: Pravastatin Sodium [Pravachol] 20 mg PO QHS 02/22/19 Cholecalciferol (Vitamin D3) [D3-2000] 2,000 unit PO DAILY #30 capsule 02/26/19 Cranberry Xt/Multivitamin [Utymax Powder Pack] 1 each PO DAILY #30 powd.pack 02/26/19 Diltiazem HCl [Cardizem 60 mg Tablet] 60 mg PO Q12 #60 tablet 02/26/19 Levofloxacin [Levaquin 500 mg Tablet] 500 mg PO DAILY #7 tablet 02/26/19 Allergies/Adverse Reactions: codeine [Codeine] Allergy (Mild, Verified 02/19/18 10:33) Nausea, vomiting Review of Systems ROS unobtainable: Due to mental status - Chronic dementia Physical Exam Vital Signs: Temp Pulse Resp BP Pulse Ox 25 H 92 05/06/19 18:51 05/06/19 18:45 Intake & Output 05/04/19 05/05/19 05/06/19 23:59 23:59 23:59 Weight 46.1 kg General appearance: PRESENT: no acute distress, cooperative, other - On BiPAP Head exam: PRESENT: atraumatic, normocephalic Eye exam: PRESENT: conjunctiva pink. ABSENT: conjunctival injection, scleral icterus Ear exam: PRESENT: normal external ear exam. ABSENT: bleeding, drainage Mouth exam: PRESENT: dry mucosa, neck supple Neck exam: ABSENT: thyromegaly, tracheal deviation Respiratory exam: PRESENT: rales - Scattered coarse rales in bilateral central lung collins, symmetrical, other - On BiPAP Cardiovascular exam: PRESENT: RRR. ABSENT: clicks, gallop, rubs Pulses: PRESENT: normal radial pulses, normal dorsalis pedis pul Vascular exam: PRESENT: normal capillary refill. ABSENT: pallor GI/Abdominal exam: PRESENT: normal bowel sounds, soft Rectal exam: PRESENT: deferred Extremities exam: ABSENT: joint swelling, pedal edema Musculoskeletal exam: ABSENT: deformity, dislocation Neurological exam: PRESENT: alert, CN II-XII grossly intact. ABSENT: oriented to person, oriented to place, oriented to time, oriented to situation, motor sensory deficit Psychiatric exam: PRESENT: appropriate affect, normal mood Skin exam: PRESENT: dry, intact, warm. ABSENT: jaundice, rash, urticaria Results Laboratory Results: 05/06/19 17:40 05/06/19 17:40 05/06/19 05/06/19 05/06/19 17:40 17:40 17:40 WBC 15.8 H RBC 4.49 Hgb 12.6 Hct 38.5 MCV 86 MCH 28.0 MCHC 32.7 RDW 14.2 H Plt Count 409 Seg Neutrophils % Not Reportable Sodium 138.9 Cancelled Potassium 4.7 Cancelled Chloride 98 Cancelled Carbon Dioxide 29 Cancelled Anion Gap 12 Cancelled BUN 16 Cancelled Creatinine 0.53 Cancelled Est GFR ( Amer) > 60 Cancelled Est GFR (Non-Af Amer) Cancelled Glucose 131 H Cancelled Calcium 9.9 Cancelled Magnesium 1.7 Total Bilirubin 0.5 Cancelled AST 30 Cancelled Alkaline Phosphatase 86 Cancelled Total Protein 6.9 Cancelled Albumin 3.8 Cancelled 05/06/19 05/06/19 17:40 17:40 Creatine Kinase 24 L CK-MB (CK-2) 0.65 Troponin I 0.023 Impressions: Chest X-Ray 05/06/19 18:45 IMPRESSION: Bilateral medial basilar consolidation and trace right pleural effusion. Assessment and Plan - Diagnosis (1) Community acquired pneumonia, bilateral Is this a current diagnosis for this admission?: Yes Plan: Patient be treated with IV antibiotics for her community-acquired bilateral pneumonia. Antibiotics will include azithromycin and ceftriaxone. Patient will also receive nebulized Xopenex on a as needed basis and nebulized Mucomyst twice daily. Daily CBCs and metabolic profiles will be obtained. Patient will have available morphine sulfate 2 to 4 mg IV every 2 hours on a as needed basis for any pain associated with her pneumonia. (2) Acute respiratory failure with hypoxia Is this a current diagnosis for this admission?: Yes Plan: Patient will receive supplemental oxygen with nasal cannula or noninvasive airway pressure devices such as BiPAP or CPAP as required to maintain an adequat e oxygen saturation greater than 93%. Patient's O2 sat will be monitored on a regular basis throughout her hospital course. (3) Chronic dementia without behavioral disturbance Is this a current diagnosis for this admission?: Yes Plan: Patient will be continued on her regimen for chronic dementia and extra care will be given to redirect the patient as well as possible to avoid necessity for chemical or physical restraints. (4) Paroxysmal atrial fibrillation Is this a current diagnosis for this admission?: Yes Plan: Patient will be continued on her usual medication for control of her paroxysmal atrial fibrillation. - Time Time Spent with patient: 15-24 minutes Medications reviewed and adjusted accordingly: Yes Anticipated discharge: SNF - Inpatient Certification Based on my medical assessment, after consideration of the patient's sky rbidities, presenting symptoms, or acuity I expect that the services needed warrant INPATIENT care.: Yes I certify that my determination is in accordance with my understanding of Medicare's requirements for reasonable and necessary INPATIENT services [42 CFR 412.3e].: Yes Medical Necessity: Significant Comorbidiites Make Outpatient Treatment Too Risky, Need Close Monitoring Due to Risk of Patient Decompensation, Need for Nebulizer Therapy and Monitoring of Response, Need for IV Antibiotics, Risk of Complication if Not Cared For in Hospital
[2019-05-07] MEDS: RINGERS SOLUTION,LACTATED 1,000 ML IV PRN ×2 (05:24→18:41)
[2019-05-07] MEDS: HEPARIN SOD (PORCINE) 5,000 UNIT/ML 1 ML VIAL SUBCUT SCH ×3 (05:37→22:33)
[2019-05-07] MEDS: AZITHROMYCIN 500 MG in DEXTROSE 5%-WATER 250 ML IV SCH (08:35)
[2019-05-07] MEDS: LEVALBUTEROL HCL NEB 0.63 MG/3 ML AMPUL NEB PRN ×2 (09:42→20:05)
[2019-05-07] MEDS: ACETYLCYSTEINE 20% SOLN 800 MG/4 ML VIAL.NEB NEB SCH ×2 (09:42→20:05)
--- NOTE | 2019-05-07 12:42 | PDOC PROGRESS REPORT ---
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 Patient has no problem understanding what you are saying however so receptive is intact. Patient comes in with acute shortness of breath as well as cough and fever Reason For Visit: BILATERAL PNEUMONIA,ACUTE RESPIRATORY FAILURE WITH Physical Exam Vital Signs: Temp Pulse Resp BP Pulse Ox 99.5 F 95 18 107/50 L 91 L 05/07/19 08:08 05/07/19 09:15 05/07/19 09:15 05/07/19 08:08 05/07/19 09:15 Intake & Output 05/06/19 05/07/19 05/08/19 06:59 06:59 06:59 Intake Total 0 Output Total 0 Balance 0 Weight 52.3 kg General appearance: PRESENT: no acute distress, other - She responds by shaking her head yes or no Respiratory exam: PRESENT: clear to auscultation lizeth, rales - Rales in both bases. ABSENT: rhonchi, wheezes Cardiovascular exam: PRESENT: RRR. ABSENT: diastolic murmur, rubs, systolic murmur Neurological exam: PRESENT: alert, awake, oriented to person, oriented to place, oriented to time, oriented to situation, CN II-XII grossly intact, other - Except for expressive a aphasia she has no other neurologic deficits. ABSENT: motor sensory deficit Psychiatric exam: PRESENT: appropriate affect, normal mood. ABSENT: homicidal ideation, suicidal ideation Results Laboratory Results: 05/07/19 02:45 05/07/19 02:45 05/06/19 05/06/19 05/06/19 17:40 17:40 17:40 WBC 15.8 H RBC 4.49 Hgb 12.6 Hct 38.5 MCV 86 MCH 28.0 MCHC 32.7 RDW 14.2 H Plt Count 409 Seg Neutrophils % Not Reportable Carbonic Acid HCO3/H2CO3 Ratio ABG pH ABG pCO2 ABG pO2 ABG HCO3 ABG O2 Saturation ABG Base Excess FiO2 Sodium 138.9 Cancelled Potassium 4.7 Cancelled Chloride 98 Cancelled Carbon Dioxide 29 Cancelled Anion Gap 12 Cancelled BUN 16 Cancelled Creatinine 0.53 Cancelled Est GFR ( Amer) > 60 Cancelled Est GFR (Non-Af Amer) Cancelled Glucose 131 H Cancelled Lactic Acid Calcium 9.9 Cancelled Magnesium 1.7 Total Bilirubin 0.5 Cancelled AST 30 Cancelled Alkaline Phosphatase 86 Cancelled Total Protein 6.9 Cancelled Albumin 3.8 Cancelled Urine Color Urine Appearance Urine pH Ur Specific [place] Urine Protein Urine Glucose (UA) Urine Ketones Urine Blood Urine Nitrite Ur Leukocyte Esterase Urine WBC (Auto) Urine RBC (Auto) 05/06/19 05/06/19 05/06/19 22:23 22:23 22:23 WBC RBC Hgb Hct MCV MCH MCHC RDW Plt Count Seg Neutrophils % Carbonic Acid 1.29 HCO3/H2CO3 Ratio 19:1 ABG pH 7.39 ABG pCO2 42.8 ABG pO2 190.8 H ABG HCO3 25.5 H ABG O2 Saturation 99.3 H ABG Base Excess 0.4 FiO2 100% Sodium Potassium Chloride Carbon Dioxide Anion Gap BUN Creatinine Est GFR ( Amer) Est GFR (Non-Af Amer) Glucose Lactic Acid 3.9 H Calcium Magnesium Total Bilirubin AST Alkaline Phosphatase Total Protein Albumin Urine Color MARIANGEL Urine Appearance CLEAR Urine pH 5.0 Ur Specific [place] 1.020 Urine Protein NEGATIVE Urine Glucose (UA) NEGATIVE Urine Ketones TRACE H Urine Blood NEGATIVE Urine Nitrite NEGATIVE Ur Leukocyte Esterase NEGATIVE Urine WBC (Auto) 1 Urine RBC (Auto) 1 05/07/19 05/07/19 05/07/19 02:45 02:45 02:45 WBC 18.9 H RBC 4.58 Hgb 12.4 Hct 39.4 MCV 86 MCH 27.1 MCHC 31.5 L RDW 14.7 H Plt Count 306 Seg Neutrophils % Carbonic Acid HCO3/H2CO3 Ratio ABG pH ABG pCO2 ABG pO2 ABG HCO3 ABG O2 Saturation ABG Base Excess FiO2 Sodium 139.9 Potassium 4.3 Chloride 99 Carbon Dioxide 29 Anion Gap 12 BUN 19 Creatinine 0.64 Est GFR ( Amer) > 60 Est GFR (Non-Af Amer) Glucose 164 H Lactic Acid 5.3 H Calcium 9.7 Magnesium Total Bilirubin AST Alkaline Phosphatase Total Protein Albumin Urine Color Urine Appearance Urine pH Ur Specific [place] Urine Protein Urine Glucose (UA) Urine Ketones Urine Blood Urine Nitrite Ur Leukocyte Esterase Urine WBC (Auto) Urine RBC (Auto) 05/07/19 10:44 WBC RBC Hgb Hct MCV MCH MCHC RDW Plt Count Seg Neutrophils % Carbonic Acid HCO3/H2CO3 Ratio ABG pH ABG pCO2 ABG pO2 ABG HCO3 ABG O2 Saturation ABG Base Excess FiO2 Sodium Potassium Chloride Carbon Dioxide Anion Gap BUN Creatinine Est GFR ( Amer) Est GFR (Non-Af Amer) Glucose Lactic Acid 3.8 H Calcium Magnesium Total Bilirubin AST Alkaline Phosphatase Total Protein Albumin Urine Color Urine Appearance Urine pH Ur Specific [place] Urine Protein Urine Glucose (UA) Urine Ketones Urine Blood Urine Nitrite Ur Leukocyte Esterase Urine WBC (Auto) Urine RBC (Auto) 05/06/19 05/06/19 05/07/19 17:40 17:40 02:45 Creatine Kinase 24 L CK-MB (CK-2) 0.65 Troponin I 0.023 0.028 Impressions: Chest X-Ray 05/06/19 18:45 IMPRESSION: Bilateral medial basilar consolidation and trace right pleural effusion. Assessment and Plan - Diagnosis (1) Paroxysmal atrial fibrillation Is this a current diagnosis for this admission?: Yes Plan: Patient was on Cardizem 60 mg every 12 hours for paroxysmal atrial fib, will continue this medicine. Patient has a long-standing history of this (2) Acute respiratory failure with hypoxia Is this a current diagnosis for this admission?: Yes Plan: Patient will receive supplemental oxygen with nasal cannula or noninvasive airway pressure devices such as BiPAP or CPAP as required to maintain an adequate oxygen saturation greater than 93%. Patient's O2 sat will be monitored on a regular basis throughout her hospital course. 05/07/2019 patient is on BiPAP on the floor O2 saturations between 9590% low rate of 4. FI O2 between 36 and 100% The emergency room patient was at 86% saturation on room air (3) Chronic dementia without behavioral disturbance Is this a current diagnosis for this admission?: Yes Plan: Patient will be continued on her regimen for chronic dementia and extra care will be given to redirect the patient as well as possible to avoid necessity for chemical or physical restraints. 05/07/2019 patient does have a history of chronic dementia, although certainly se ems appropriate on rounds this morning (4) Community acquired pneumonia, bilateral Is this a current diagnosis for this admission?: Yes Plan: Patient be treated with IV antibiotics for her community-acquired bilateral pneumonia. Antibiotics will include azithromycin and ceftriaxone. Patient will also receive nebulized Xopenex on a as needed basis and nebulized Mucomyst twice daily. Daily CBCs and metabolic profiles will be obtained. Patient will have available morphine sulfate 2 to 4 mg IV every 2 hours on a as needed basis for any pain associated with her pneumonia. 05/07/2019 x-rays show bilateral medial basilar consolidation with a trace of right pleural effusion Patient is currently on IV Zithromax and IV Rocephin - Time Time Spent with patient: 35 or more minutes
[2019-05-07] MEDS: CEFTRIAXONE 1 GM/D5W RTU 1 GM/50 ML RTUPB IV SCH (13:57)
[2019-05-07] MEDS: DOCUSATE SODIUM 100 MG CAPSULE PO SCH ×2 (14:01→18:36)
[2019-05-07] MEDS: FAMOTIDINE 20 MG TABLET PO SCH ×2 (14:01→22:34)
[2019-05-07] MEDS: DILTIAZEM HCL 120 MG CAP.SR.24H PO SCH (14:13)
[2019-05-07] MEDS ORDERED: CEFTRIAXONE 1 GM/D5W RTU 1 GM/50 ML RTUPB IV SCH (22:00)
[2019-05-07] MEDS ORDERED: AZITHROMYCIN 500 MG in DEXTROSE 5%-WATER 250 ML IV SCH (22:00)
[2019-05-08 04:09] LABS: ANION GAP 7 (5-19); BLOOD UREA NITROGEN 23 mg/dL (7-20); CALCIUM 9.1 mg/dL (8.4-10.2); CARBON DIOXIDE 30 mmol/L (22-30); CHLORIDE 98 mmol/L (98-107); GLUCOSE 119 mg/dL (75-110); POTASSIUM 4.8 mmol/L (3.6-5.0)
[2019-05-08 06:14] LABS: HEMATOCRIT 30.2 % (36.0-47.0); MEAN CORPUSCULAR HEMOGLOBIN 27.5 pg (27.0-33.4); MEAN CORPUSCULAR HGB CONC 32.6 g/dL (32.0-36.0); MEAN CORPUSCULAR VOLUME 85 fl (80-97); PLATELET COUNT 245 10^3/uL (150-450); RED BLOOD COUNT 3.56 10^6/uL (3.72-5.28); RED CELL DISTRIBUTION WIDTH 14.5 % (11.5-14.0)
[2019-05-08 06:19] LABS: HEMOGLOBIN 9.8 g/dL (12.0-15.5)
[2019-05-08] MEDS: HEPARIN SOD (PORCINE) 5,000 UNIT/ML 1 ML VIAL SUBCUT SCH ×3 (06:19→22:05)
[2019-05-08] MEDS: LEVALBUTEROL HCL NEB 0.63 MG/3 ML AMPUL NEB PRN ×2 (08:16→19:39)
[2019-05-08] MEDS: ACETYLCYSTEINE 20% SOLN 800 MG/4 ML VIAL.NEB NEB SCH ×2 (08:16→19:39)
[2019-05-08] MEDS: DOCUSATE SODIUM 100 MG CAPSULE PO SCH ×2 (09:48→17:27)
[2019-05-08] MEDS: CEFTRIAXONE 1 GM/D5W RTU 1 GM/50 ML RTUPB IV SCH (09:48)
[2019-05-08] MEDS: AZITHROMYCIN 500 MG in DEXTROSE 5%-WATER 250 ML IV SCH (09:48)
[2019-05-08] MEDS: FAMOTIDINE 20 MG TABLET PO SCH ×2 (09:48→22:05)
[2019-05-08] MEDS: DILTIAZEM HCL 120 MG CAP.SR.24H PO SCH (09:48)
--- NOTE | 2019-05-08 13:39 | PDOC PROGRESS REPORT ---
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 Patient has no problem understanding what you are saying however so receptive is intact. Patient comes in with acute shortness of breath as well as cough and fever 05/08/2019 patient is off the BiPAP but requiring high flow nasal cannula, patient looks better with more color and actually smiling this morning. Reason For Visit: BILATERAL PNEUMONIA,ACUTE RESPIRATORY FAILURE WITH Physical Exam Vital Signs: Temp Pulse Resp BP Pulse Ox 98.7 F 84 20 101/53 L 94 05/08/19 11:18 05/08/19 11:18 05/08/19 11:18 05/08/19 11:18 05/08/19 12:35 Intake & Output 05/07/19 05/08/19 05/09/19 06:59 06:59 06:59 Intake Total 0 1618 420 Output Total 0 Balance 0 1618 420 Weight 52.3 kg 54.7 kg General appearance: PRESENT: no acute distress Respiratory exam: PRESENT: rhonchi, other - Scattered Cardiovascular exam: PRESENT: RRR. ABSENT: diastolic murmur, rubs, systolic murmur Neurological exam: PRESENT: alert, awake, oriented to person, oriented to place, oriented to time, oriented to situation, CN II-XII grossly intact, aphasic. ABSENT: motor sensory deficit Psychiatric exam: PRESENT: appropriate affect, normal mood. ABSENT: homicidal ideation, suicidal ideation Results Laboratory Results: 05/08/19 05:22 05/08/19 03:24 05/08/19 05/08/19 05/08/19 03:24 03:24 05:22 WBC Cancelled 15.0 H RBC Cancelled 3.56 L Hgb Cancelled 9.8 L D Hct Cancelled 30.2 L MCV Cancelled 85 MCH Cancelled 27.5 MCHC Cancelled 32.6 RDW Cancelled 14.5 H Plt Count Cancelled 245 Sodium 134.9 L Potassium 4.8 Chloride 98 Carbon Dioxide 30 Anion Gap 7 BUN 23 H Creatinine 0.50 L Est GFR ( Amer) > 60 Glucose 119 H Calcium 9.1 05/06/19 05/06/19 05/07/19 17:40 17:40 02:45 Creatine Kinase 24 L CK-MB (CK-2) 0.65 Troponin I 0.023 0.028 Impressions: Chest X-Ray 05/06/19 18:45 IMPRESSION: Bilateral medial basilar consolidation and trace right pleural effusion. Assessment and Plan - Diagnosis (1) Paroxysmal atrial fibrillation Is this a current diagnosis for this admission?: Yes Plan: Patient was on Cardizem 60 mg every 12 hours for paroxysmal atrial fib, will continue this medicine. Patient has a long-standing history of this 05/08/2019 admission patient's pulse was 109 it is now stabilized to upper 70s low 80s. Patient is not symptomatic (2) Acute respiratory failure with hypoxia Is this a current diagnosis for this admission?: Yes Plan: Patient will receive supplemental oxygen with nasal cannula or noninvasive airway pressure devices such as BiPAP or CPAP as required to maintain an adequate oxygen saturation greater than 93%. Patient's O2 sat will be monitored on a regular basis throughout her hospital course. 05/07/2019 patient is on BiPAP on the floor O2 saturations between 9590% low rate of 4. FI O2 between 36 and 100% The emergency room patient was at 86% saturation on room air 05/08/2019 patient is currently on 5 L nasal cannula with an O2 sat of 94%. When patient came into the ER her saturation was 92%. Patient does not appear hypoxic (3) Chronic dementia without behavioral disturbance Is this a current diagnosis for this admission?: Yes Plan: Patient will be continued on her regimen for chronic dementia and extra care will be given to redirect the patient as well as possible to avoid necessity for chemical or physical restraints. 05/07/2019 patient does have a history of chronic dementia, although certainly seems appropriate on rounds this morning 05/08/2019 Kathi is not significant for this illness now. Patient was on no medications for dementia when she came in (4) Community acquired pneumonia, bilateral Is this a current diagnosis for this admission?: Yes Plan: Patient be treated with IV antibiotics for her community-acquired bilateral pneumonia. Antibiotics will include azithromycin and ceftriaxone. Patient will also receive nebulized Xopenex on a as needed basis and nebulized Mucomyst twice daily. Daily CBCs and metabolic profiles will be obtained. Patient will have available morphine sulfate 2 to 4 mg IV every 2 hours on a as needed basis for any pain associated with her pneumonia. 05/07/2019 x-rays show bilateral medial basilar consolidation with a trace of right pleural effusion Patient is currently on IV Zithromax and IV Rocephin 05/08/2019 on admission white count was 15,800 today it is basically unchanged 15,000 lactic acid level has come down to 3.8 after up as high as 5.3. Zithromax day 2 and Rocephin day 2, she has been afebrile since she came in - Time Time Spent with patient: 25-34 minutes
--- NOTE | 2019-05-08 15:44 | Progress Note ---
Provider Note Provider Note: 05/08/2019 this morning I was called to see the patient because of respiratory distress and tachycardia according to the nurse patient was becoming more restless pulse was up to around 150 that had dropped down to the low 90s she was very anxious and agitated. Her graph patient has a history of atrial fib and EKG showed that patient was in paroxysmal atrial fib. Stat portable chest x-ray showed an element of early pulmonary edema Was given 40 of Lasix IV and diuresed between 600 and thousand mL's. Patient was feeling some better but still tachycardic therefore she was given IV push of Cardizem 5 mg x 2. Her heart rate dropped down into the 80s and patient was feeling much more comfortable. Sats were between 95 and 98% on nasal cannula 4 L. Patient will be maintained on her Cardizem 30 mg every 6 hours and Lasix will be adjusted to 20 mg IV every 12 hours. Time was from 1100 hrs. to 1145
[2019-05-08] MEDS: RINGERS SOLUTION,LACTATED 1,000 ML IV PRN (22:05)
[2019-05-09] MEDS: HEPARIN SOD (PORCINE) 5,000 UNIT/ML 1 ML VIAL SUBCUT SCH ×3 (05:59→22:05)
[2019-05-09 06:37] LABS: HEMATOCRIT 28.2 % (36.0-47.0); HEMOGLOBIN 9.2 g/dL (12.0-15.5); MEAN CORPUSCULAR HEMOGLOBIN 27.6 pg (27.0-33.4); MEAN CORPUSCULAR HGB CONC 32.8 g/dL (32.0-36.0); MEAN CORPUSCULAR VOLUME 84 fl (80-97); PLATELET COUNT 242 10^3/uL (150-450); RED BLOOD COUNT 3.35 10^6/uL (3.72-5.28); RED CELL DISTRIBUTION WIDTH 14.4 % (11.5-14.0); WHITE BLOOD COUNT 13.4 10^3/uL (4.0-10.5)
[2019-05-09 06:50] LABS: BLOOD UREA NITROGEN 16 mg/dL (7-20); CALCIUM 8.6 mg/dL (8.4-10.2); CARBON DIOXIDE 33 mmol/L (22-30); CHLORIDE 97 mmol/L (98-107); GLUCOSE 108 mg/dL (75-110); POTASSIUM 4.4 mmol/L (3.6-5.0)
[2019-05-09 07:19] LABS: ANION GAP 4 (5-19)
[2019-05-09] MEDS: AZITHROMYCIN 500 MG in DEXTROSE 5%-WATER 250 ML IV SCH (07:55)
[2019-05-09] MEDS: LEVALBUTEROL HCL NEB 0.63 MG/3 ML AMPUL NEB PRN ×2 (08:12→20:29)
[2019-05-09] MEDS: ACETYLCYSTEINE 20% SOLN 800 MG/4 ML VIAL.NEB NEB SCH ×2 (08:12→20:29)
[2019-05-09] MEDS: DILTIAZEM HCL 120 MG CAP.SR.24H PO SCH (10:52)
[2019-05-09] MEDS: CEFTRIAXONE 1 GM/D5W RTU 1 GM/50 ML RTUPB IV SCH (10:52)
[2019-05-09] MEDS: FAMOTIDINE 20 MG TABLET PO SCH ×2 (10:52→22:05)
[2019-05-09] MEDS: DOCUSATE SODIUM 100 MG CAPSULE PO SCH ×2 (10:52→17:50)
--- NOTE | 2019-05-09 12:19 | PDOC PROGRESS REPORT ---
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 Patient has no problem understanding what you are saying however so receptive is intact. Patient comes in with acute shortness of breath as well as cough and fever 05/08/2019 patient is off the BiPAP but requiring high flow nasal cannula, patient looks better with more color and actually smiling this morning. 05/09/2019 she is on nasal oxygen today is maintaining her sats 92 to 98%. In the process of weaning her down she was on 5 L of nasal cannula I turned her down to 4 L patient sleeping comfortably in no respiratory distress Reason For Visit: BILATERAL PNEUMONIA,ACUTE RESPIRATORY FAILURE WITH Physical Exam Vital Signs: Temp Pulse Resp BP Pulse Ox 98.5 F 87 18 120/48 L 92 05/09/19 07:26 05/09/19 08:12 05/09/19 08:12 05/09/19 07:26 05/09/19 08:12 Intake & Output 05/08/19 05/09/19 05/10/19 06:59 06:59 06:59 Intake Total 1618 1979 250 Output Total 0 Balance 1618 1979 250 Weight 54.7 kg 56.9 kg General appearance: PRESENT: no acute distress, well-developed, well-nourished, other - Leaping Respiratory exam: PRESENT: clear to auscultation lizeth. ABSENT: rales, rhonchi, wheezes Cardiovascular exam: PRESENT: RRR. ABSENT: diastolic murmur, rubs, systolic murmur Neurological exam: PRESENT: alert, awake, oriented to person, oriented to place, oriented to time, oriented to situation, CN II-XII grossly intact. ABSENT: motor sensory deficit Psychiatric exam: PRESENT: appropriate affect, normal mood. ABSENT: homicidal ideation, suicidal ideation Results Laboratory Results: 05/09/19 05:46 05/09/19 05:46 05/09/19 05/09/19 05:46 05:46 WBC 13.4 H RBC 3.35 L Hgb 9.2 L Hct 28.2 L MCV 84 MCH 27.6 MCHC 32.8 RDW 14.4 H Plt Count 242 Sodium 134.1 L Potassium 4.4 Chloride 97 L Carbon Dioxide 33 H Anion Gap 4 L BUN 16 Creatinine 0.47 L Est GFR ( Amer) > 60 Glucose 108 Calcium 8.6 05/06/19 05/06/19 05/07/19 17:40 17:40 02:45 Creatine Kinase 24 L CK-MB (CK-2) 0.65 Troponin I 0.023 0.028 Impressions: Chest X-Ray 05/06/19 18:45 IMPRESSION: Bilateral medial basilar consolidation and trace right pleural effusion. Assessment and Plan - Diagnosis (1) Paroxysmal atrial fibrillation Is this a current diagnosis for this admission?: Yes Plan: Patient was on Cardizem 60 mg every 12 hours for paroxysmal atrial fib, will continue this medicine. Patient has a long-standing history of this 05/08/2019 admission patient's pulse was 109 it is now stabilized to upper 70s low 80s. Patient is not symptomatic 05/09/2019 pulse rate is in the 80s we will repeat EKG today (2) Acute respiratory failure with hypoxia Is this a current diagnosis for this admission?: Yes Plan: Patient will receive supplemental oxygen with nasal cannula or noninvasive airway pressure devices such as BiPAP or CPAP as required to maintain an adequate oxygen saturation greater than 93%. Patient's O2 sat will be monitored on a regular basis throughout her hospital course. 05/07/2019 patient is on BiPAP on the floor O2 saturations between 9590% low rate of 4. FI O2 between 36 and 100% The emergency room patient was at 86% saturation on room air 05/08/2019 patient is currently on 5 L nasal cannula with an O2 sat of 94%. When patient came into the ER her saturation was 92%. Patient does not appear hypox ic 05 09 19 the process of weaning her down on her oxygen by nasal cannula. Patient is currently not using BiPAP will repeat chest x-ray (3) Chronic dementia without behavioral disturbance Is this a current diagnosis for this admission?: Yes Plan: Patient will be continued on her regimen for chronic dementia and extra care will be given to redirect the patient as well as possible to avoid necessity for chemical or physical restraints. 05/07/2019 patient does have a history of chronic dementia, although certainly seems appropriate on rounds this morning 05/08/2019 Kathi is not significant for this illness now. Patient was on no medications for dementia when she came in (4) Community acquired pneumonia, bilateral Is this a current diagnosis for this admission?: Yes Plan: Patient be treated with IV antibiotics for her community-acquired bilateral pn eumonia. Antibiotics will include azithromycin and ceftriaxone. Patient will also receive nebulized Xopenex on a as needed basis and nebulized Mucomyst twice daily. Daily CBCs and metabolic profiles will be obtained. Patient will have available morphine sulfate 2 to 4 mg IV every 2 hours on a as needed basis for any pain associated with her pneumonia. 05/07/2019 x-rays show bilateral medial basilar consolidation with a trace of right pleural effusion Patient is currently on IV Zithromax and IV Rocephin 05/08/2019 on admission white count was 15,800 today it is basically unchanged 15,000 lactic acid level has come down to 3.8 after up as high as 5.3. Zithromax day 2 and Rocephin day 2, she has been afebrile since she came in 05/09/2019 we will repeat chest x-ray today. Day 3 of IV antibiotics white count is gone down to 13.4 we will repeat lactic acid electrolytes look normal - Time Time Spent with patient: 25-34 minutes
[2019-05-09] MEDS: RINGERS SOLUTION,LACTATED 1,000 ML IV PRN ×2 (15:22→22:06)
--- NOTE | 2019-05-09 17:37 | EKG REPORT ---
SEVERITY:- ABNORMAL ECG - ATRIAL FIBRILLATION LEFT BUNDLE BRANCH BLOCK : Confirmed by: Mahendra Allred MD 09-May-2019 17:36:40
--- NOTE | 2019-05-10 04:50 | RADIOLOGY REPORT (SQ) ---
EXAM DESCRIPTION: X-ray single view chest. CLINICAL HISTORY: 89 years Female, follow up pneumonia COMPARISON: 05/06/2019 and 02/22/2019 TECHNIQUE: Single portable x-ray view of the chest performed on 05/09/2019 at 1:38 PM FINDINGS: There is increasing volume loss in the lung bases greater on the right with elevation of the right hemidiaphragm. The upper lung zones are grossly clear. Bilateral pleural effusions are not excluded. There is no evidence of a pneumothorax. The cardiac silhouette is grossly normal in size and configuration. The mediastinal contours are normal. No acute osseous abnormality is identified. There is mild levoscoliosis of the lower thoracic spine. No focal soft tissue abnormalities are seen. Lines and tubes: None. IMPRESSION: Increasing volume loss in the lung bases with elevation of the right hemidiaphragm. Findings may be related to edema, atelectasis and/or pneumonia with bilateral effusions.
[2019-05-10] MEDS: HEPARIN SOD (PORCINE) 5,000 UNIT/ML 1 ML VIAL SUBCUT SCH ×3 (05:33→21:26)
[2019-05-10] MEDS: AZITHROMYCIN 500 MG in DEXTROSE 5%-WATER 250 ML IV SCH (07:48)
--- NOTE | 2019-05-10 08:43 | RADIOLOGY REPORT (SQ) ---
EXAM DESCRIPTION: CT CHEST WITHOUT COMPLETED DATE/TIME: 05/10/2019 8:20 am REASON FOR STUDY: pleural effusion, right COMPARISON: Chest radiograph, 05/09/2019 TECHNIQUE: CT scan performed of the chest without intravenous contrast. Images reviewed with lung, soft tissue and bone windows. Reconstructed coronal and sagittal MPR images reviewed. All images st ored on PACS. All CT scanners at this facility use dose modulation, iterative reconstruction, and/or weight based d osing when appropriate to reduce radiation dose to as low as reasonably achievable (ALARA). [facility]: Dose Right [facility]: CareDose [facility]: Dose Right [facility]: Teradose 4D [facility]: [employer] RADIATION DOSE: CT Rad equipment meets quality standard of care and radiation dose reduction techniq ues were employed. CTDIvol: 3.5 mGy. DLP: 125 mGy-cm. mGy. LIMITATIONS: No technical limitations. FINDINGS: LUNGS AND PLEURA: Moderate bilateral pleural effusions with associated atelectasis or cons olidation. There are scattered ground-glass and consolidative opacities of the more dependent lungs, more conspicuous in the right lower and middle lobes. HILAR AND MEDIASTINAL STRUCTURES: No identified masses or abnormal nodes. No obvious aneurysm. HEART AND VASCULAR STRUCTURES: No aneurysm. Trace pericardial effusion. UPPER ABDOMEN: No significant findings. Limited exam. THYROID AND OTHER SOFT TISSUES: No masses. No adenopathy. BONES: No significant finding. HARDWARE: None in the chest. OTHER: No other significant findings. IMPRESSION: Moderate bilateral pleural effusions with associated atelectasis or consolidation. There are scattered ground-glass and consolidative opacities of the more dependent lungs, more conspicuous in the right lower and middle lobes. Findings are most consistent with infection or aspiration. TECHNICAL DOCUMENTATION: JOB ID: [id number] Quality ID # [id number]: Final reports with documentation of one or more dose reduction techniques (e.g., Au tomated exposure control, adjustment of the mA and/or kV according to patient size, use of iterative reconstruction technique) 2010 [employer]- All Rights Reserved Reading location - IP/workstation name: [email or web address]
[2019-05-10] MEDS: LEVALBUTEROL HCL NEB 0.63 MG/3 ML AMPUL NEB PRN ×2 (08:52→20:09)
[2019-05-10] MEDS: ACETYLCYSTEINE 20% SOLN 800 MG/4 ML VIAL.NEB NEB SCH ×2 (08:52→20:09)
[2019-05-10] MEDS: DOCUSATE SODIUM 100 MG CAPSULE PO SCH ×2 (09:47→17:57)
[2019-05-10] MEDS: DILTIAZEM HCL 120 MG CAP.SR.24H PO SCH (09:47)
[2019-05-10] MEDS: CEFTRIAXONE 1 GM/D5W RTU 1 GM/50 ML RTUPB IV SCH (09:47)
[2019-05-10] MEDS: FAMOTIDINE 20 MG TABLET PO SCH ×2 (09:47→21:27)
--- NOTE | 2019-05-10 10:53 | EKG REPORT ---
SEVERITY:- ABNORMAL ECG - ATRIAL FIBRILLATION LEFT BUNDLE BRANCH BLOCK : Confirmed on behalf of: Mahendra Allred MD 10-May-2019 10:53:09
--- NOTE | 2019-05-10 12:14 | PDOC PROGRESS REPORT ---
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 Patient has no problem understanding what you are saying however so receptive is intact. Patient comes in with acute shortness of breath as well as cough and fever 05/08/2019 patient is off the BiPAP but requiring high flow nasal cannula, patient looks better with more color and actually smiling this morning. 05/09/2019 she is on nasal oxygen today is maintaining her sats 92 to 98%. In the process of weaning her down she was on 5 L of nasal cannula I turned her down to 4 L patient sleeping comfortably in no respiratory distress 05/10/2019 patient's O2 sat this morning 91% on 4 L. Patient is afebrile 98 5, pulse in the mid 80s, vital signs are stable 120/60 Patient is nonverbal but communicates by shaking her head Reason For Visit: BILATERAL PNEUMONIA,ACUTE RESPIRATORY FAILURE WITH Physical Exam Vital Signs: Temp Pulse Resp BP Pulse Ox 98.5 F 87 18 125/51 L 91 L 05/10/19 07:20 05/10/19 08:52 05/10/19 08:52 05/10/19 07:20 05/10/19 08:52 Intake & Output 05/09/19 05/10/19 05/11/19 06:59 06:59 06:59 Intake Total 1979 2458 Output Total 0 Balance 1979 2458 Weight 56.9 kg 53.6 kg General appearance: PRESENT: no acute distress, other - Comfortably in bed Respiratory exam: PRESENT: clear to auscultation lizeth, decreased breath sounds - Scattered but primarily in the right lung base, rhonchi. ABSENT: rales, wheezes Cardiovascular exam: PRESENT: RRR. ABSENT: diastolic murmur, rubs, systolic murmur Neurological exam: PRESENT: alert, awake, oriented to person, oriented to place, oriented to time, oriented to situation, CN II-XII grossly intact, other - Nonverbal. ABSENT: motor sensory deficit Psychiatric exam: PRESENT: appropriate affect, normal mood, other - Communicates with her eyes and shaking her head. ABSENT: homicidal ideation, suicidal ideation Results Laboratory Results: 05/09/19 05:46 05/09/19 05:46 05/09/19 12:49 Lactic Acid 0.9 05/06/19 05/06/19 05/07/19 17:40 17:40 02:45 Creatine Kinase 24 L CK-MB (CK-2) 0.65 Troponin I 0.023 0.028 Impressions: Chest X-Ray 05/09/19 00:00 IMPRESSION: Increasing volume loss in the lung bases with elevation of the right hemidiaphragm. Findings may be related to edema, atelectasis and/or pneumonia with bilateral effusions. Chest CT 05/10/19 00:00 IMPRESSION: Moderate bilateral pleural effusions with associated atelectasis or consolidation. There are scattered ground-glass and consolidative opacities of the more dependent lungs, more conspicuous in the right lower and middle lobes. Findings are most consistent with infection or aspiration. Assessment and Plan - Diagnosis (1) Paroxysmal atrial fibrillation Is this a current diagnosis for this admission?: Yes Plan: Patient was on Cardizem 60 mg every 12 hours for paroxysmal atrial fib, will continue this medicine. Patient has a long-standing history of this 05/08/2019 admission patient's pulse was 109 it is now stabilized to upper 70s low 80s. Patient is not symptomatic 05/09/2019 pulse rate is in the 80s we will repeat EKG today 05/10/2019 EkG from yesterday shows atrial fib patient is asymptomatic. This is chronic (2) Acute respiratory failure with hypoxia Is this a current diagnosis for this admission?: Yes Plan: Patient will receive supplemental oxygen with nasal cannula or noninvasive airwa y pressure devices such as BiPAP or CPAP as required to maintain an adequate oxygen saturation greater than 93%. Patient's O2 sat will be monitored on a regular basis throughout her hospital course. 05/07/2019 patient is on BiPAP on the floor O2 saturations between 9590% low rate of 4. FI O2 between 36 and 100% The emergency room patient was at 86% saturation on room air 05/08/2019 patient is currently on 5 L nasal cannula with an O2 sat of 94%. When patient came into the ER her saturation was 92%. Patient does not appear hypoxic 05 09 19 the process of weaning her down on her oxygen by nasal cannula. Patient is currently not using BiPAP will repeat chest x-ray 09/09/2018 patient currently on 4 L nasal cannula O2 sats around 91%. CT scan is pending from today due to increased consolidation of the right base by chest x- ray. Patient does not appear to be in respiratory distress (3) Chronic dementia without behavioral disturbance Is this a current diagnosis for this admission?: Yes Plan: Patient will be continued on her regimen for chronic dementia and extra care will be given to redirect the patient as well as possible to avoid necessity for chemical or physical restraints. 05/07/2019 patient does have a history of chronic dementia, although certainly seems appropriate on rounds this morning 05/08/2019 dementia is not significant for this illness now. Patient was on no medications for dementia when she came in 05/10/2019 no complaints. Patient was on no medication for dementia prior to admission (4) Community acquired pneumonia, bilateral Is this a current diagnosis for this admission?: Yes Plan: Patient be treated with IV antibiotics for her community-acquired bilateral pneumonia. Antibiotics will include azithromycin and ceftriaxone. Patient will also receive nebulized Xopenex on a as needed basis and nebulized Mucomyst twice daily. Daily CBCs and metabolic profiles will be obtained. Patient will have available morphine sulfate 2 to 4 mg IV every 2 hours on a as needed basis for any pain associated with her pneumonia. 05/07/2019 x-rays show bilateral medial basilar consolidation with a trace of right pleural effusion Patient is currently on IV Zithromax and IV Rocephin 05/08/2019 on admission white count was 15,800 today it is basically unchanged 15,000 lactic acid level has come down to 3.8 after up as high as 5.3. Zithromax day 2 and Rocephin day 2, she has been afebrile since she came in 05/09/2019 we will repeat chest x-ray today. Day 3 of IV antibiotics white count is gone down to 13.4 we will repeat lactic acid electrolytes look normal 05/10/2019 on admission lactic acid was 5.3 yesterday it was 0.9,white count is slowly trending down. Clinically patient appears to be improving on IV antibi otics CT scan of the chest is pending. I have asked Dr. Kline to review CXR, he recommended CT scan, continue antibiotics. - Time Time Spent with patient: 25-34 minutes
[2019-05-11] MEDS: HEPARIN SOD (PORCINE) 5,000 UNIT/ML 1 ML VIAL SUBCUT SCH ×3 (06:05→21:26)
[2019-05-11] MEDS: ACETYLCYSTEINE 20% SOLN 800 MG/4 ML VIAL.NEB NEB SCH ×2 (08:24→19:29)
[2019-05-11] MEDS: LEVALBUTEROL HCL NEB 0.63 MG/3 ML AMPUL NEB PRN ×2 (08:24→19:29)
[2019-05-11] MEDS: DILTIAZEM HCL 120 MG CAP.SR.24H PO SCH (09:13)
[2019-05-11] MEDS: DOCUSATE SODIUM 100 MG CAPSULE PO SCH ×2 (09:13→17:06)
[2019-05-11] MEDS: FAMOTIDINE 20 MG TABLET PO SCH ×2 (09:13→21:26)
[2019-05-11] MEDS: AZITHROMYCIN 500 MG in DEXTROSE 5%-WATER 250 ML IV SCH (09:13)
--- NOTE | 2019-05-11 10:07 | RADIOLOGY REPORT (SQ) ---
EXAM DESCRIPTION: JAYJAY SWALLOW COMPLETED DATE/TIME: 05/11/2019 9:55 am REASON FOR STUDY: rule out aspiration COMPARISON: None. TECHNIQUE: Videofluoroscopic swallowing examination was performed in conjunction with speech patholo gy. Videofluoroscopic imaging was obtained and reviewed and these are the findings: RADIATION DOSE: Fluoro time 4.11 minutes 1 images saved to PACS. LIMITATIONS: None FINDINGS: The patient was brought into the fluoro room and placed upright on a modified barium swall ow chair. The patient was then given multiple consistencies mixed with barium to swallow under live fluoroscopic video guidance. According to the Speech Pathologist there was no penetration or aspirat ion. A delayed oral phase was noted. Please refer to the speech pathology report for further details . IMPRESSION: NO EVIDENCE OF PENETRATION OR ASPIRATION. PLEASE SEE SPEECH PATHOLOGIST REPORT FOR OTHER FINDINGS AND RECOMMENDATIONS. COMMENT: None Quality ID [id number]: Final reports for procedures using fluoroscopy that document radiation exposure rupesh re, or exposure time and number of fluorographic images (if radiation exposure indices are not avail able) TECHNICAL DOCUMENTATION: JOB ID: [id number] [employer]- All Rights Reserved Reading location - IP/workstation name: [email or web address] [id number]
[2019-05-11] MEDS: CEFTRIAXONE 1 GM/D5W RTU 1 GM/50 ML RTUPB IV SCH (10:29)
--- NOTE | 2019-05-11 11:15 | ST Inp Modified Barium Swallow ---
Medical Diagnosis - Medical Diagnoses Medical Diagnosis Description & ICD-10 Code(s): community acquired pneumonia, bilateral - ICD-10 Tx Diagnosis Coding (1) Dysphagia ICD-10 Code(s): R13.10 - DYSPHAGIA, UNSPECIFIED ST Inpatient MBS - General Date: 05/11/19 Date of Onset: 05/10/19 - History -: Medical - per EMR: patient admitted 05/06 from long-term with dyspnea. Found to have pneumonia on x-ray. Patient has history of dementia, and expressive aphasia x2 years, no reported history of stroke. Per nursing staff, patient's family was concerned for aspiration as she has "failed a swallow test before". Bedside swallow assessment completed 05/10/19. Therapist observed some coughing on sequential sips of water, as well as some difficulty following directions for specific tasks to assess swallow function. MBSS recommended to further evaluate swallow function. Medications: Medications Reviewed Allergies: Refer to medical record - Subjective Current Nutritional Means: PO Current PO Diet: Regular Current Symptoms: Poor intake, Pneumonia Pain: no signs/symptoms of pain - Objective Assessment: Upright, Left Lateral - Food Trials Food Trials Used: Thin liquids, Pureed, Regular The Patient: Required Assist - Assessment Labial Function: Within Normal Limits Lingual Function: Within Normal Limits Mandibular Function: Within Normal Limits Dentition: Partial Velo-Pharyngeal Function: Unremarkable Laryngeal Function: no volitional cough/clear - difficulty following directions, largely non-verbal - Pharyngeal Stage Initiation of Pharyngeal Stage: Delayed - swallow seen to be triggered at the valleculae for liquids, pyriform for some solid trials. Decreased Laryngeal Elevation: No Reduced Velo-Pharyngeal Closure: no Reduced Pressure Generation: Yes Reduced Tongue Base Retraction: No Pre-Swallowing Pooling in Valleculae: Significant Pre-Swallowing Pooling in Pyriforms: Moderate Reduced Thyro-Hyiod Approximation: No Reduced Epiglottic Excursion: No Reduced Pharyngeal Peristalsis: No Multiple Swallows With: Ineffective Clearance Post Swallow Residuals in Valleculae: Mild Post Swallow Residuals in Pyriforms: Mild Pahryngeal Stage Comments: Very delayed swallow reflex seen throughout, reflex delay increased as textures increased. Some perseverative chewing with regular solids seen and oral holding with liquids also seen. - Impression/Summary Laryngeal Penetration: No Tracheal Aspiration: no Compensatory Strategies: Patient unable to follow directions for compensatory strategies. Recommend keeping patient upright for 10-15 minutes after a meal in case of pharyngeal residue. Patient Presents With: Oral stage dysphagia, Mild-Moderate Risk of Aspiration: Moderate Risk of Nutritional Compromise: Moderate Risk Due To: Aspiration risk due to swallow delay, nutritional risk due to amount of time required to eat/drink. - Recommendations Solid Diet Recommendations: Mechanical Soft, Ground Meat Liquid Diet Recommendations: Thin Regular Diet: No - perseverative chewing seen Strict Aspitarion Precautions: Yes Dysphagia Therapy with [employer]ER: No - unable to participate in skilled dysphagia treatment at this time. Recommended Techniques: Fully Upright During Meal, Small Bites and Sips, Alternate Bites/Sips - Time Total Time: 30 Total Timed Minutes: 30
--- NOTE | 2019-05-11 14:42 | PDOC PROGRESS REPORT ---
Subjective Progress Note for:: 05/11/19 Subjective:: No adverse events overnight. No new complaints. She has been steady on 5 L nasal cannula. No fevers. She has some pocketing and holding of some foods with increasing textures on her modified barium swallow. Reason For Visit: BILATERAL PNEUMONIA,ACUTE RESPIRATORY FAILURE WITH Physical Exam Vital Signs: Temp Pulse Resp BP Pulse Ox 98.2 F 79 20 103/38 L 92 05/11/19 11:03 05/11/19 11:03 05/11/19 11:03 05/11/19 11:03 05/11/19 11:03 Intake & Output 05/10/19 05/11/19 05/12/19 06:59 06:59 06:59 Intake Total 2459 1657 300 Balance 2459 1657 300 Weight 53.6 kg 59.2 kg General appearance: PRESENT: no acute distress, cooperative, disheveled Respiratory exam: PRESENT: rhonchi - Right midlung, unlabored. ABSENT: accessory muscle use, chest wall tenderness, decreased breath sounds - Right base, prolonged expiratory phas, rales, symmetrical, tachypnea, wheezes Cardiovascular exam: PRESENT: RRR, +S1, +S2 Pulses: PRESENT: normal carotid pulses Vascular exam: PRESENT: normal capillary refill GI/Abdominal exam: PRESENT: normal bowel sounds, soft. ABSENT: distended, guarding, rebound, tenderness Extremities exam: ABSENT: clubbing, pedal edema Musculoskeletal exam: PRESENT: normal inspection. ABSENT: deformity Neurological exam: PRESENT: awake, oriented to person, other - She did not talk to me, just nodded her head Psychiatric exam: PRESENT: flat affect Skin exam: PRESENT: dry, warm Results Laboratory Results: 05/09/19 05:46 05/09/19 05:46 05/06/19 05/06/19 05/07/19 17:40 17:40 02:45 Creatine Kinase 24 L CK-MB (CK-2) 0.65 Troponin I 0.023 0.028 Impressions: Chest X-Ray 05/09/19 00:00 IMPRESSION: Increasing volume loss in the lung bases with elevation of the right hemidiaphragm. Findings may be related to edema, atelectasis and/or pneumonia with bilateral effusions. Chest CT 05/10/19 00:00 IMPRESSION: Moderate bilateral pleural effusions with associated atelectasis or consolidation. There are scattered ground-glass and consolidative opacities of the more dependent lungs, more conspicuous in the right lower and middle lobes. Findings are most consistent with infection or aspiration. Modified Barium Swallow 05/11/19 00:00 IMPRESSION: NO EVIDENCE OF PENETRATION OR ASPIRATION. PLEASE SEE SPEECH PATHOLOGIST REPORT FOR OTHER FINDINGS AND RECOMMENDATIONS. Assessment and Plan - Diagnosis (1) Aspiration pneumonia of both lower lobes Qualifiers: Aspiration pneumonia type: unspecified Qualified Code(s): J69.0 - Pneumonitis due to inhalation of food and vomit Is this a current diagnosis for this admission?: Yes Plan: I will change her antibiotics to Zosyn (2) Dysphagia Qualifiers: Dysphagia type: other dysphagia Qualified Code(s): R13.19 - Other dysphagia Is this a current diagnosis for this admission?: Yes Plan: Speech therapy recommended modify her diet to reduce pocketing of food (3) Paroxysmal atrial fibrillation Is this a current diagnosis for this admission?: Yes Plan: Rate is controlled (4) Sepsis Qualifiers: Sepsis type: sepsis due to unspecified organism Sepsis acute organ dysfunction status: with acute organ dysfunction Severe sepsis acute organ dysfunction type: acute respiratory failure Acute respiratory failure type: with hypoxia Severe sepsis shock status: without septic shock Qualified Code(s): A41.9 - Sepsis, unspecified organism; R65.20 - Severe sepsis without septic shock; J96.01 - Acute respiratory failure with hypoxia Is this a current diagnosis for this admission?: Yes Plan: Resolved (5) Acute respiratory failure with hypoxia Is this a current diagnosis for this admission?: Yes Plan: Currently stable on 5 L nasal cannula, will wean as tolerated (6) Chronic dementia without behavioral disturbance Is this a current diagnosis for this admission?: Yes Plan: At baseline - Time Time Spent with patient: 15-24 minutes
[2019-05-11] MEDS: RINGERS SOLUTION,LACTATED 1,000 ML IV PRN (17:06)
[2019-05-11] MEDS: PIPERACILLIN SODIUM/TAZOBACTAM 3.375 GM in NORMAL SALINE 100 ML IV SCH ×2 (17:15→23:54)
[2019-05-12] MEDS: PIPERACILLIN SODIUM/TAZOBACTAM 3.375 GM in NORMAL SALINE 100 ML IV SCH ×3 (05:45→17:09)
[2019-05-12] MEDS: HEPARIN SOD (PORCINE) 5,000 UNIT/ML 1 ML VIAL SUBCUT SCH ×3 (05:46→21:16)
[2019-05-12] MEDS: RINGERS SOLUTION,LACTATED 1,000 ML IV PRN (06:48)
[2019-05-12 08:07] LABS: INTERNATIONAL RATION (INR) 1.06; PROTHROMBIN TIME 13.8 SEC (11.4-15.4)
[2019-05-12] MEDS: ACETYLCYSTEINE 20% SOLN 800 MG/4 ML VIAL.NEB NEB SCH ×2 (08:17→20:03)
[2019-05-12] MEDS: LEVALBUTEROL HCL NEB 0.63 MG/3 ML AMPUL NEB PRN ×2 (08:17→20:03)
[2019-05-12 08:30] LABS: ANION GAP 7 (5-19); BLOOD UREA NITROGEN 7 mg/dL (7-20); CALCIUM 8.7 mg/dL (8.4-10.2); CARBON DIOXIDE 30 mmol/L (22-30); CHLORIDE 97 mmol/L (98-107); GLUCOSE 104 mg/dL (75-110); POTASSIUM 4.2 mmol/L (3.6-5.0)
[2019-05-12 08:51] LABS: HEMATOCRIT 28.5 % (36.0-47.0); HEMOGLOBIN 9.5 g/dL (12.0-15.5); MEAN CORPUSCULAR HEMOGLOBIN 27.7 pg (27.0-33.4); MEAN CORPUSCULAR HGB CONC 33.3 g/dL (32.0-36.0); MEAN CORPUSCULAR VOLUME 83 fl (80-97); PLATELET COUNT 267 10^3/uL (150-450); RED BLOOD COUNT 3.42 10^6/uL (3.72-5.28); RED CELL DISTRIBUTION WIDTH 14.4 % (11.5-14.0); WHITE BLOOD COUNT 9.1 10^3/uL (4.0-10.5)
[2019-05-12] MEDS: DOCUSATE SODIUM 100 MG CAPSULE PO SCH ×2 (09:41→17:04)
[2019-05-12] MEDS: DILTIAZEM HCL 120 MG CAP.SR.24H PO SCH (09:41)
[2019-05-12] MEDS: FAMOTIDINE 20 MG TABLET PO SCH ×2 (09:41→21:18)
--- NOTE | 2019-05-12 15:06 | PDOC PROGRESS REPORT ---
Subjective Progress Note for:: 05/12/19 Subjective:: No adverse events overnight. Today she was on 5 L nasal cannula little bit of a cough but could not really get anything up, and her oxygen saturations were anywhere from 88 to 90%, and she looks comfortable. She is getting a thoracentesis today. Reason For Visit: BILATERAL PNEUMONIA,ACUTE RESPIRATORY FAILURE WITH Physical Exam Vital Signs: Temp Pulse Resp BP Pulse Ox 97.5 F 81 16 116/45 L 89 L 05/12/19 12:06 05/12/19 12:06 05/12/19 12:06 05/12/19 12:06 05/12/19 12:06 Intake & Output 05/11/19 05/12/19 05/13/19 06:59 06:59 06:59 Intake Total 1657 2480 320 Balance 1657 2480 320 Weight 59.2 kg 57.2 kg General appearance: PRESENT: no acute distress, cooperative, disheveled Respiratory exam: PRESENT: rhonchi - Right midlung, unlabored. ABSENT: accessory muscle use, chest wall tenderness, decreased breath sounds - Right base, prolonged expiratory phas, rales, symmetrical, tachypnea, wheezes Cardiovascular exam: PRESENT: RRR, +S1, +S2 Pulses: PRESENT: normal carotid pulses Vascular exam: PRESENT: normal capillary refill GI/Abdominal exam: PRESENT: normal bowel sounds, soft. ABSENT: distended, guarding, rebound, tenderness Extremities exam: ABSENT: clubbing, pedal edema Musculoskeletal exam: PRESENT: normal inspection. ABSENT: deformity Neurological exam: PRESENT: awake, oriented to person, other - She did not talk to me, just nodded her head Psychiatric exam: PRESENT: flat affect Skin exam: PRESENT: dry, warm Results Laboratory Results: 05/12/19 06:52 05/12/19 06:52 05/12/19 05/12/19 06:52 06:52 WBC 9.1 RBC 3.42 L Hgb 9.5 L Hct 28.5 L MCV 83 MCH 27.7 MCHC 33.3 RDW 14.4 H Plt Count 267 Sodium 134.4 L Potassium 4.2 Chloride 97 L Carbon Dioxide 30 Anion Gap 7 BUN 7 Creatinine 0.42 L Est GFR ( Amer) > 60 Glucose 104 Calcium 8.7 05/06/19 05/06/19 05/07/19 17:40 17:40 02:45 Creatine Kinase 24 L CK-MB (CK-2) 0.65 Troponin I 0.023 0.028 Impressions: Chest X-Ray 05/09/19 00:00 IMPRESSION: Increasing volume loss in the lung bases with elevation of the right hemidiaphragm. Findings may be related to edema, atelectasis and/or pneumonia with bilateral effusions. Chest CT 05/10/19 00:00 IMPRESSION: Moderate bilateral pleural effusions with associated atelectasis or consolidation. There are scattered ground-glass and consolidative opacities of the more dependent lungs, more conspicuous in the right lower and middle lobes. Findings are most consistent with infection or aspiration. Modified Barium Swallow 05/11/19 00:00 IMPRESSION: NO EVIDENCE OF PENETRATION OR ASPIRATION. PLEASE SEE SPEECH PATHOLOGIST REPORT FOR OTHER FINDINGS AND RECOMMENDATIONS. Assessment and Plan - Diagnosis (1) Aspiration pneumonia of both lower lobes Qualifiers: Aspiration pneumonia type: unspecified Qualified Code(s): J69.0 - Pneumonitis due to inhalation of food and vomit Is this a current diagnosis for this admission?: Yes Plan: I have changed her antibiotics to Zosyn. She is on a modified diet. (2) Dysphagia Qualifiers: Dysphagia type: other dysphagia Qualified Code(s): R13.19 - Other dysphagia Is this a current diagnosis for this admission?: Yes Plan: Speech therapy recommended modify her diet to reduce pocketing of food (3) Paroxysmal atrial fibrillation Is this a current diagnosis for this admission?: Yes Plan: Rate is controlled (4) Sepsis Qualifiers: Sepsis type: sepsis due to unspecified organism Sepsis acute organ dysfunction status: with acute organ dysfunction Severe sepsis acute organ dysfunction type: acute respiratory failure Acute respiratory failure type: with hypoxia Severe sepsis shock status: without septic shock Qualified Code(s): A41.9 - Sepsis, unspecified organism; R65.20 - Severe sepsis without septic shock; J96.01 - Acute respiratory failure with hypoxia Is this a current diagnosis for this admission?: Yes Plan: Resolved (5) Acute respiratory failure with hypoxia Is this a current diagnosis for this admission?: Yes Plan: Currently stable on 5 L nasal cannula, will wean as tolerated. Thoracentesis today for the right pleural effusion which is greater than the left, hopefully this will reduce her oxygen requirement. (6) Chronic dementia without behavioral disturbance Is this a current diagnosis for this admission?: Yes Plan: At baseline - Time Time Spent with patient: 15-24 minutes
--- NOTE | 2019-05-12 15:34 | RADIOLOGY REPORT (SQ) ---
EXAM DESCRIPTION: U/S CHEST COMPLETED DATE/TIME: 05/12/2019 3:14 pm REASON FOR STUDY: right pleural effusion COMPARISON: Chest CT 05/10/2019 LIMITATIONS: None. PROCEDURE: Preprocedure ultrasound evaluation of the bilateral hemithoraces was performed for evalua tion of pleural fluid. Ultrasound demonstrated small bilateral pleural effusions with findings on pr ior CT likely secondary to consolidated lung. No procedure was performed at this time secondary to s mall pleural fluid volume. Images acquired during the procedure were stored on PACS. FINDINGS: As above IMPRESSION: Preprocedure ultrasound demonstrated small bilateral pleural effusions. Findings of mod erate effusions on prior CT secondary to adjacent consolidated lung. No thoracentesis was performed at this time secondary to the small pleural fluid volume. COMMENT: Patient medication list reviewed: Yes- Quality ID# [id number]:Eligible professional attests to doc umenting in the medical record they obtained, updated, or reviewed the patient's current medications. TECHNICAL DOCUMENTATION: JOB ID: [id number] [employer] All Rights Reserved Reading location - IP/workstation name: [email or web address]
[2019-05-13] MEDS: PIPERACILLIN SODIUM/TAZOBACTAM 3.375 GM in NORMAL SALINE 100 ML IV SCH ×4 (01:00→17:00)
[2019-05-13] MEDS: HEPARIN SOD (PORCINE) 5,000 UNIT/ML 1 ML VIAL SUBCUT SCH ×3 (05:37→21:41)
[2019-05-13] MEDS: RINGERS SOLUTION,LACTATED 1,000 ML IV PRN ×2 (05:37→17:00)
[2019-05-13] MEDS: ACETYLCYSTEINE 20% SOLN 800 MG/4 ML VIAL.NEB NEB SCH ×2 (07:38→19:49)
[2019-05-13] MEDS: LEVALBUTEROL HCL NEB 0.63 MG/3 ML AMPUL NEB PRN ×2 (07:38→19:49)
[2019-05-13] MEDS: DILTIAZEM HCL 120 MG CAP.SR.24H PO SCH (10:04)
[2019-05-13] MEDS: DOCUSATE SODIUM 100 MG CAPSULE PO SCH ×2 (10:05→17:03)
[2019-05-13] MEDS: FAMOTIDINE 20 MG TABLET PO SCH ×2 (10:05→21:41)
--- NOTE | 2019-05-13 16:41 | PDOC PROGRESS REPORT ---
Subjective Progress Note for:: 05/13/19 Subjective:: No adverse events overnight. Patient remains nonverbal but does make eye contact and answers questions by nodding yes and no. Thoracentesis was canceled today because on ultrasound it looks like she only had small bilateral pleural effusions which contradicts what was seen on CT. She seems to have been doing well on her modified diet thus far. I spoke to her son at length. Reason For Visit: BILATERAL PNEUMONIA,ACUTE RESPIRATORY FAILURE WITH Physical Exam Vital Signs: Temp Pulse Resp BP Pulse Ox 98.8 F 81 20 121/45 L 94 05/13/19 15:12 05/13/19 15:12 05/13/19 15:12 05/13/19 15:12 05/13/19 15:12 Intake & Output 05/12/19 05/13/19 05/14/19 06:59 06:59 06:59 Intake Total 2480 1520 440 Balance 2480 1520 440 Weight 57.2 kg 61.3 kg General appearance: PRESENT: no acute distress, cooperative, disheveled Respiratory exam: PRESENT: rhonchi - Right midlung, unlabored. ABSENT: ac cessory muscle use, chest wall tenderness, decreased breath sounds - Right base, prolonged expiratory phas, rales, symmetrical, tachypnea, wheezes Cardiovascular exam: PRESENT: RRR, +S1, +S2 Pulses: PRESENT: normal carotid pulses Vascular exam: PRESENT: normal capillary refill GI/Abdominal exam: PRESENT: normal bowel sounds, soft. ABSENT: distended, guarding, rebound, tenderness Extremities exam: ABSENT: clubbing, pedal edema Musculoskeletal exam: PRESENT: normal inspection. ABSENT: deformity Neurological exam: PRESENT: awake, oriented to person, other - She did not talk to me, just nodded her head Psychiatric exam: PRESENT: flat affect Skin exam: PRESENT: dry, warm Results Laboratory Results: 05/12/19 06:52 05/12/19 06:52 05/06/19 05/06/19 05/07/19 17:40 17:40 02:45 Creatine Kinase 24 L CK-MB (CK-2) 0.65 Troponin I 0.023 0.028 Impressions: Chest X-Ray 05/09/19 00:00 IMPRESSION: Increasing volume loss in the lung bases with elevation of the right hemidiaphragm. Findings may be related to edema, atelectasis and/or pneumonia with bilateral effusions. Chest CT 05/10/19 00:00 IMPRESSION: Moderate bilateral pleural effusions with associated atelectasis or consolidation. There are scattered ground-glass and consolidative opacities of the more dependent lungs, more conspicuous in the right lower and middle lobes. Findings are most consistent with infection or aspiration. Modified Barium Swallow 05/11/19 00:00 IMPRESSION: NO EVIDENCE OF PENETRATION OR ASPIRATION. PLEASE SEE SPEECH PATHOLOGIST REPORT FOR OTHER FINDINGS AND RECOMMENDATIONS. Chest Ultrasound 05/12/19 00:00 IMPRESSION: Preprocedure ultrasound demonstrated small bilateral pleural effusions. Findings of moderate effusions on prior CT secondary to adjacent consolidated lung. No thoracentesis was performed at this time secondary to the small pleural fluid volume. Assessment and Plan - Diagnosis (1) Aspiration pneumonia of both lower lobes Qualifiers: Aspiration pneumonia type: unspecified Qualified Code(s): J69.0 - Pneumonitis due to inhalation of food and vomit Is this a current diagnosis for this admission?: Yes Plan: I have changed her antibiotics to Zosyn. She is on a modified diet. Have recommended aggressive pulmonary toilet (2) Dysphagia Qualifiers: Dysphagia type: other dysphagia Qualified Code(s): R13.19 - Other dysphagia Is this a current diagnosis for this admission?: Yes Plan: Speech therapy recommended modify her diet to reduce pocketing of food (3) Paroxysmal atrial fibrillation Is this a current diagnosis for this admission?: Yes Plan: Rate is controlled (4) Sepsis Qualifiers: Sepsis type: sepsis due to unspecified organism Sepsis acute organ dysfunction status: with acute organ dysfunction Severe sepsis acute organ dysfunction type: acute respiratory failure Acute respiratory failure type: with hypoxia Severe sepsis shock status: without septic shock Qualified Code(s): A41.9 - Sepsis, unspecified organism; R65.20 - Severe sepsis without septic shock; J96.01 - Acute respiratory failure with hypoxia Is this a current diagnosis for this admission?: Yes Plan: Resolved (5) Acute respiratory failure with hypoxia Is this a current diagnosis for this admission?: Yes Plan: Currently stable on 5 L nasal cannula, will wean as tolerated. Thoracentesis today was canceled for the reasons noted above. Looks like all of this is just consolidation from her aspiration. She may need oxygen for short period of time after discharge. Recommended aggressive pulmonary toilet. (6) Chronic dementia without behavioral disturbance Is this a current diagnosis for this admission?: Yes Plan: At baseline - Time Time Spent with patient: 15-24 minutes - Plan Summary Plan Summary: Based on her performance for her physical therapy evaluation, I anticipate she will need to go to a group home facility for rehab.
[2019-05-14] MEDS: PIPERACILLIN SODIUM/TAZOBACTAM 3.375 GM in NORMAL SALINE 100 ML IV SCH ×5 (01:26→23:40)
[2019-05-14] MEDS: HEPARIN SOD (PORCINE) 5,000 UNIT/ML 1 ML VIAL SUBCUT SCH ×3 (06:44→22:14)
[2019-05-14] MEDS: RINGERS SOLUTION,LACTATED 1,000 ML IV PRN ×2 (06:45→22:15)
[2019-05-14] MEDS: LEVALBUTEROL HCL NEB 0.63 MG/3 ML AMPUL NEB PRN ×2 (07:50→20:13)
[2019-05-14] MEDS: ACETYLCYSTEINE 20% SOLN 800 MG/4 ML VIAL.NEB NEB SCH ×2 (07:50→20:13)
[2019-05-14] MEDS: DOCUSATE SODIUM 100 MG CAPSULE PO SCH ×2 (10:20→17:33)
[2019-05-14] MEDS: DILTIAZEM HCL 120 MG CAP.SR.24H PO SCH (10:20)
[2019-05-14] MEDS: FAMOTIDINE 20 MG TABLET PO SCH ×2 (10:20→22:14)
--- NOTE | 2019-05-14 16:21 | PDOC PROGRESS REPORT ---
Subjective Progress Note for:: 05/14/19 Subjective:: No adverse events overnight. She actually tried to speak to me once today. Oxygen saturations have consistently been 89 to 93% on 5 L per nasal cannula. Her breathing appears comfortable overall. She seems to be tolerating the modified diet well. Reason For Visit: BILATERAL PNEUMONIA,ACUTE RESPIRATORY FAILURE WITH Physical Exam Vital Signs: Temp Pulse Resp BP Pulse Ox 98.1 F 84 21 H 127/54 H 91 L 05/14/19 12:00 05/14/19 12:00 05/14/19 12:00 05/14/19 12:00 05/14/19 15:49 Intake & Output 05/13/19 05/14/19 05/15/19 06:59 06:59 06:59 Intake Total 1520 2945 457 Balance 1520 2945 457 Weight 61.3 kg 60.4 kg General appearance: PRESENT: no acute distress, cooperative, disheveled Respiratory exam: PRESENT: rhonchi - Right midlung, unlabored. ABSENT: accessory muscle use, chest wall tenderness, decreased breath sounds - Right base, prolonged expiratory phas, rales, symmetrical, tachypnea, wheezes Cardiovascular exam: PRESENT: RRR, +S1, +S2 Pulses: PRESENT: normal carotid pulses Vascular exam: PRESENT: normal capillary refill GI/Abdominal exam: PRESENT: normal bowel sounds, soft. ABSENT: distended, guarding, rebound, tenderness Extremities exam: ABSENT: clubbing, pedal edema Musculoskeletal exam: PRESENT: normal inspection. ABSENT: deformity Neurological exam: PRESENT: awake, oriented to person, other - She typically does not talk, just nods her head Psychiatric exam: PRESENT: flat affect Skin exam: PRESENT: dry, warm Results Laboratory Results: 05/12/19 06:52 05/12/19 06:52 05/06/19 05/06/19 05/07/19 17:40 17:40 02:45 Creatine Kinase 24 L CK-MB (CK-2) 0.65 Troponin I 0.023 0.028 Impressions: Chest X-Ray 05/09/19 00:00 IMPRESSION: Increasing volume loss in the lung bases with elevation of the right hemidiaphragm. Findings may be related to edema, atelectasis and/or pneumonia with bilateral effusions. Chest CT 05/10/19 00:00 IMPRESSION: Moderate bilateral pleural effusions with associated atelectasis or consolidation. There are scattered ground-glass and consolidative opacities of the more dependent lungs, more conspicuous in the right lower and middle lobes. Findings are most consistent with infection or aspiration. Modified Barium Swallow 05/11/19 00:00 IMPRESSION: NO EVIDENCE OF PENETRATION OR ASPIRATION. PLEASE SEE SPEECH PATHOLOGIST REPORT FOR OTHER FINDINGS AND RECOMMENDATIONS. Chest Ultrasound 05/12/19 00:00 IMPRESSION: Preprocedure ultrasound demonstrated small bilateral pleural effusions. Findings of moderate effusions on prior CT secondary to adjacent consolidated lung. No thoracentesis was performed at this time secondary to the small pleural fluid volume. Assessment and Plan - Diagnosis (1) Aspiration pneumonia of both lower lobes Qualifiers: Aspiration pneumonia type: unspecified Qualified Code(s): J69.0 - Pneumonitis due to inhalation of food and vomit Is this a current diagnosis for this admission?: Yes Plan: I have changed her antibiotics to Zosyn. She is on a modified diet. Have recommended aggressive pulmonary toilet (2) Dysphagia Qualifiers: Dysphagia type: other dysphagia Qualified Code(s): R13.19 - Other dysphagia Is this a current diagnosis for this admission?: Yes Plan: Speech therapy recommended modify her diet to reduce pocketing of food (3) Paroxysmal atrial fibrillation Is this a current diagnosis for this admission?: Yes Plan: Rate is controlled (4) Sepsis Qualifiers: Sepsis type: sepsis due to unspecified organism Sepsis acute organ dysfunction status: with acute organ dysfunction Severe sepsis acute organ dysfunction type: acute respiratory failure Acute respiratory failure type: with hypoxia Severe sepsis shock status: without septic shock Qualified Code(s): A41.9 - Sepsis, unspecified organism; R65.20 - Severe sepsis without septic shock; J96.01 - Acute respiratory failure with hypoxia Is this a current diagnosis for this admission?: Yes Plan: Resolved (5) Acute respiratory failure with hypoxia Is this a current diagnosis for this admission?: Yes Plan: Currently stable on 5 L nasal cannula, will wean as tolerated. She may need oxygen for short period of time after discharge. Aggressive pulmonary toilet. (6) Chronic dementia without behavioral disturbance Is this a current diagnosis for this admission?: Yes Plan: At baseline - Time Time Spent with patient: 15-24 minutes
[2019-05-15] MEDS: HEPARIN SOD (PORCINE) 5,000 UNIT/ML 1 ML VIAL SUBCUT SCH ×3 (05:50→22:37)
[2019-05-15] MEDS: PIPERACILLIN SODIUM/TAZOBACTAM 3.375 GM in NORMAL SALINE 100 ML IV SCH ×4 (05:50→23:34)
[2019-05-15] MEDS: LEVALBUTEROL HCL NEB 0.63 MG/3 ML AMPUL NEB PRN ×2 (08:47→19:58)
[2019-05-15] MEDS: ACETYLCYSTEINE 20% SOLN 800 MG/4 ML VIAL.NEB NEB SCH ×2 (08:48→19:58)
[2019-05-15] MEDS: DOCUSATE SODIUM 100 MG CAPSULE PO SCH ×2 (09:50→17:41)
[2019-05-15] MEDS: DILTIAZEM HCL 120 MG CAP.SR.24H PO SCH (10:00)
[2019-05-15] MEDS: FAMOTIDINE 20 MG TABLET PO SCH ×2 (10:00→22:37)
[2019-05-15] MEDS: RINGERS SOLUTION,LACTATED 1,000 ML IV PRN ×2 (12:10→23:34)
--- NOTE | 2019-05-15 16:05 | PDOC PROGRESS REPORT ---
Subjective Progress Note for:: 05/15/19 Subjective:: No adverse events overnight. Oxygen saturations have consistently been 89 to 93% on 5 L per nasal cannula. Her breathing appears comfortable overall. She seems to be tolerating the modified diet well but she did not eat very much of her breakfast this morning. Reason For Visit: BILATERAL PNEUMONIA,ACUTE RESPIRATORY FAILURE WITH Physical Exam Vital Signs: Temp Pulse Resp BP Pulse Ox 97.8 F 76 18 119/43 L 91 L 05/15/19 12:08 05/15/19 12:08 05/15/19 12:08 05/15/19 12:08 05/15/19 12:08 Intake & Output 05/14/19 05/15/19 05/16/19 06:59 06:59 06:59 Intake Total 2945 2277 1460 Balance 2945 2277 1460 Weight 60.4 kg 61.2 kg General appearance: PRESENT: no acute distress, cooperative, disheveled Respiratory exam: PRESENT: rhonchi - Right midlung, unlabored. ABSENT: accessory muscle use, chest wall tenderness, decreased breath sounds - Right base, prolonged expiratory phas, rales, symmetrical, tachypnea, wheezes Cardiovascular exam: PRESENT: RRR, +S1, +S2 Pulses: PRESENT: normal carotid pulses Vascular exam: PRESENT: normal capillary refill GI/Abdominal exam: PRESENT: normal bowel sounds, soft. ABSENT: distended, guarding, rebound, tenderness Extremities exam: ABSENT: clubbing, pedal edema Musculoskeletal exam: PRESENT: normal inspection. ABSENT: deformity Neurological exam: PRESENT: awake, oriented to person, other - She typically does not talk, just nods her head Psychiatric exam: PRESENT: flat affect Skin exam: PRESENT: dry, warm Results Laboratory Results: 05/12/19 06:52 05/12/19 06:52 05/06/19 05/06/19 05/07/19 17:40 17:40 02:45 Creatine Kinase 24 L CK-MB (CK-2) 0.65 Troponin I 0.023 0.028 Impressions: Chest X-Ray 05/09/19 00:00 IMPRESSION: Increasing volume loss in the lung bases with elevation of the right hemidiaphragm. Findings may be related to edema, atelectasis and/or pneumonia with bilateral effusions. Chest CT 05/10/19 00:00 IMPRESSION: Moderate bilateral pleural effusions with associated atelectasis or consolidation. There are scattered ground-glass and consolidative opacities of the more dependent lungs, more conspicuous in the right lower and middle lobes. Findings are most consistent with infection or aspiration. Modified Barium Swallow 05/11/19 00:00 IMPRESSION: NO EVIDENCE OF PENETRATION OR ASPIRATION. PLEASE SEE SPEECH PATHOLOGIST REPORT FOR OTHER FINDINGS AND RECOMMENDATIONS. Chest Ultrasound 05/12/19 00:00 IMPRESSION: Preprocedure ultrasound demonstrated small bilateral pleural effusions. Findings of moderate effusions on prior CT secondary to adjacent consolidated lung. No thoracentesis was performed at this time secondary to the small pleural fluid volume. Assessment and Plan - Diagnosis (1) Aspiration pneumonia of both lower lobes Qualifiers: Aspiration pneumonia type: unspecified Qualified Code(s): J69.0 - Pneumonitis due to inhalation of food and vomit Is this a current diagnosis for this admission?: Yes Plan: I have changed her antibiotics to Zosyn. She is on a modified diet. Have recommended aggressive pulmonary toilet. She probably will need to Zosyn for much longer. (2) Dysphagia Qualifiers: Dysphagia type: other dysphagia Qualified Code(s): R13.19 - Other dysphagia Is this a current diagnosis for this admission?: Yes Plan: Speech therapy recommended modify her diet to reduce pocketing of food (3) Paroxysmal atrial fibrillation Is this a current diagnosis for this admission?: Yes Plan: Rate is controlled (4) Sepsis Qualifiers: Sepsis type: sepsis due to unspecified organism Sepsis acute organ dysfunction status: with acute organ dysfunction Severe sepsis acute organ dysfunction type: acute respiratory failure Acute respiratory failure type: with hypoxia Severe sepsis shock status: without septic shock Qualified Code(s): A41.9 - Sepsis, unspecified organism; R65.20 - Severe sepsis without septic shock; J96.01 - Acute respiratory failure with hypoxia Is this a current diagnosis for this admission?: Yes Plan: Resolved (5) Acute respiratory failure with hypoxia Is this a current diagnosis for this admission?: Yes Plan: Currently stable on 5 L nasal cannula, will wean as tolerated. She may need oxygen for short period of time after discharge. Aggressive pulmonary toilet. She is not really able to cough very well or clear her secretions so I anticipate she is going to be on oxygen for at least the next couple of weeks, maybe longer. (6) Chronic dementia without behavioral disturbance Is this a current diagnosis for this admission?: Yes Plan: At baseline - Time Time Spent with patient: 15-24 minutes
[2019-05-16] MEDS: HEPARIN SOD (PORCINE) 5,000 UNIT/ML 1 ML VIAL SUBCUT SCH ×3 (06:47→21:43)
[2019-05-16] MEDS: PIPERACILLIN SODIUM/TAZOBACTAM 3.375 GM in NORMAL SALINE 100 ML IV SCH ×4 (06:47→23:10)
[2019-05-16] MEDS: LEVALBUTEROL HCL NEB 0.63 MG/3 ML AMPUL NEB PRN ×2 (08:30→20:24)
[2019-05-16] MEDS: ACETYLCYSTEINE 20% SOLN 800 MG/4 ML VIAL.NEB NEB SCH ×2 (08:32→20:24)
[2019-05-16] MEDS: DOCUSATE SODIUM 100 MG CAPSULE PO SCH ×2 (09:20→17:33)
[2019-05-16] MEDS: DILTIAZEM HCL 120 MG CAP.SR.24H PO SCH (09:20)
[2019-05-16] MEDS: FAMOTIDINE 20 MG TABLET PO SCH ×2 (09:20→21:43)
--- NOTE | 2019-05-16 14:46 | PDOC PROGRESS REPORT ---
Subjective Progress Note for:: 05/16/19 Subjective:: No adverse events overnight. When she was taking her medications crushed up with pudding this morning, she would cough after taking a bite of it. She apparently does this fairly consistently. Reason For Visit: BILATERAL PNEUMONIA,ACUTE RESPIRATORY FAILURE WITH Physical Exam Vital Signs: Temp Pulse Resp BP Pulse Ox 98.4 F 79 21 H 125/46 L 96 05/16/19 12:00 05/16/19 12:00 05/16/19 12:00 05/16/19 12:00 05/16/19 12:00 Intake & Output 05/15/19 05/16/19 05/17/19 06:59 06:59 06:59 Intake Total 2277 3093 100 Balance 2277 3093 100 Weight 61.2 kg 58.3 kg General appearance: PRESENT: no acute distress, cooperative, disheveled Respiratory exam: PRESENT: rhonchi - Right midlung, unlabored. ABSENT: accessory muscle use, chest wall tenderness, decreased breath sounds - Right base, prolonged expiratory phas, rales, symmetrical, tachypnea, wheezes Cardiovascular exam: PRESENT: RRR, +S1, +S2 Pulses: PRESENT: normal carotid pulses Vascular exam: PRESENT: normal capillary refill GI/Abdominal exam: PRESENT: normal bowel sounds, soft. ABSENT: distended, guarding, rebound, tenderness Extremities exam: ABSENT: clubbing, pedal edema Musculoskeletal exam: PRESENT: normal inspection. ABSENT: deformity Neurological exam: PRESENT: awake, oriented to person, other - She typically does not talk, just nods her head Psychiatric exam: PRESENT: flat affect Skin exam: PRESENT: dry, warm Results Laboratory Results: 05/12/19 06:52 05/12/19 06:52 05/06/19 05/06/19 05/07/19 17:40 17:40 02:45 Creatine Kinase 24 L CK-MB (CK-2) 0.65 Troponin I 0.023 0.028 Impressions: Chest X-Ray 05/09/19 00:00 IMPRESSION: Increasing volume loss in the lung bases with elevation of the right hemidiaphragm. Findings may be related to edema, atelectasis and/or pneumonia with bilateral effusions. Chest CT 05/10/19 00:00 IMPRESSION: Moderate bilateral pleural effusions with associated atelectasis or consolidation. There are scattered ground-glass and consolidative opacities of the more dependent lungs, more conspicuous in the right lower and middle lobes. Findings are most consistent with infection or aspiration. Modified Barium Swallow 05/11/19 00:00 IMPRESSION: NO EVIDENCE OF PENETRATION OR ASPIRATION. PLEASE SEE SPEECH PATH OLOGIST REPORT FOR OTHER FINDINGS AND RECOMMENDATIONS. Chest Ultrasound 05/12/19 00:00 IMPRESSION: Preprocedure ultrasound demonstrated small bilateral pleural effusions. Findings of moderate effusions on prior CT secondary to adjacent consolidated lung. No thoracentesis was performed at this time secondary to the small pleural fluid volume. Assessment and Plan - Diagnosis (1) Aspiration pneumonia of both lower lobes Qualifiers: Aspiration pneumonia type: unspecified Qualified Code(s): J69.0 - Pneumonitis due to inhalation of food and vomit Is this a current diagnosis for this admission?: Yes Plan: I have changed her antibiotics to Zosyn. She is on a modified diet but she still has some issues with aspiration, which she will likely continue to have.. Have recommended aggressive pulmonary toilet. I will let her stay on Zosyn for another day and then discontinue tomorrow. (2) Dysphagia Qualifiers: Dysphagia type: other dysphagia Qualified Code(s): R13.19 - Other dysphagia Is this a current diagnosis for this admission?: Yes Plan: Speech therapy recommended modify her diet to reduce pocketing of food. She does not seem to be pocketing food but she still has aspiration from time to time. (3) Paroxysmal atrial fibrillation Is this a current diagnosis for this admission?: Yes Plan: Rate is controlled (4) Sepsis Qualifiers: Sepsis type: sepsis due to unspecified organism Sepsis acute organ dysfunction status: with acute organ dysfunction Severe sepsis acute organ dysfunction type: acute respiratory failure Acute respiratory failure type: with hypoxia Severe sepsis shock status: without septic shock Qualified Code(s): A41.9 - Sepsis, unspecified organism; R65.20 - Severe sepsis without septic shock; J96.01 - Acute respiratory failure with hypoxia Is this a current diagnosis for this admission?: Yes Plan: Resolved (5) Acute respiratory failure with hypoxia Is this a current diagnosis for this admission?: Yes Plan: Currently stable on 5 L nasal cannula, will wean as tolerated. She may need oxygen for short period of time after discharge. Aggressive pulmonary toilet. She is not really able to cough very well or clear her secretions so I anticipate she is going to be on oxygen for at least the next couple of weeks, maybe longer. (6) Chronic dementia without behavioral disturbance Is this a current diagnosis for this admission?: Yes Plan: At baseline - Time Time Spent with patient: 15-24 minutes
[2019-05-16] MEDS: RINGERS SOLUTION,LACTATED 1,000 ML IV PRN (17:30)
[2019-05-17] MEDS: PIPERACILLIN SODIUM/TAZOBACTAM 3.375 GM in NORMAL SALINE 100 ML IV SCH ×3 (05:14→17:10)
[2019-05-17] MEDS: HEPARIN SOD (PORCINE) 5,000 UNIT/ML 1 ML VIAL SUBCUT SCH ×3 (05:14→21:45)
[2019-05-17] MEDS: ACETYLCYSTEINE 20% SOLN 800 MG/4 ML VIAL.NEB NEB SCH ×2 (08:42→19:46)
[2019-05-17] MEDS: LEVALBUTEROL HCL NEB 0.63 MG/3 ML AMPUL NEB PRN ×2 (08:42→19:46)
[2019-05-17] MEDS: DILTIAZEM HCL 120 MG CAP.SR.24H PO SCH (09:30)
[2019-05-17] MEDS: FAMOTIDINE 20 MG TABLET PO SCH ×2 (09:30→21:44)
[2019-05-17] MEDS: RINGERS SOLUTION,LACTATED 1,000 ML IV PRN ×2 (09:30→21:52)
[2019-05-17] MEDS: DOCUSATE SODIUM 100 MG CAPSULE PO SCH ×2 (09:31→17:12)
--- NOTE | 2019-05-17 17:03 | PDOC DISCHARGE SUMMARY ---
Impression - Admit/DC Date/PCP Admission Date/Primary Care Provider: 05/06/19 22:48 JAMES DOUGLASS MD Discharge Date: 05/17/19 - Discharge Diagnosis (1) Aspiration pneumonia of both lower lobes Is this a current diagnosis for this admission?: Yes (2) Dysphagia Is this a current diagnosis for this admission?: Yes (3) Paroxysmal atrial fibrillation Is this a current diagnosis for this admission?: Yes (4) Sepsis Is this a current diagnosis for this admission?: Yes (5) Acute respiratory failure with hypoxia Is this a current diagnosis for this admission?: Yes (6) Chronic dementia without behavioral disturbance Is this a current diagnosis for this admission?: Yes - Additional Information Resuscitation Status: Do Not Resuscitate Discharge Diet: Cardiac Discharge Activity: Supervised Activity Referrals: JAMES DOUGLASS MD [Primary Care Provider] - Follow up as needed Home Medications: Cholecalciferol (Vitamin D3) [D3-2000] 2,000 unit PO DAILY #30 capsule 02/26/19 Diltiazem HCl [Cardizem 60 mg Tablet] 60 mg PO Q12 #60 tablet 02/26/19 Acetaminophen [Tylenol Extra Strength 500 mg Tablet] 1 tab PO Q4HP PRN 05/07/19 Cranberry Fruit Extract [Cranberry] 500 mg PO DAILY 05/07/19 Guaifenesin [Robitussin Syrup 200 mg/10 ml Ud Cup] 200 mg PO QIDP PRN udc 05/17/19 History of Present Illiness History of Present Illness: ANTHONY MANRIQUEZ is a 89 year old female who presented from the skilled nursing with acute dyspnea. The patient has chronic dementia and is unable to provide reliable historical information. Her information is obtained from family members and other reliable available sources. She was found to be dyspneic this morning at the skilled nursing and was noted to have an accompanying cough with clear to yellowish sputum production and a fever of 101 F she was subsequently brought to the emergency room by her family. In the emergency room she was found to have hypoxia with an O2 sat of 86% on room air, a low-grade fever and a pneumonia per x-ray report. Family has requested that she be made a DNR/DNI. Patient was treated with BiPAP in the ER and will be admitted for further evaluation and treatment. Hospital Course Hospital Course: We scanned her chest and she had bilateral lower lobe consolidation, and the suspicion was that she had been aspirating. We had a swallow evaluation and while she did not really call very much she did have penetration nearly all consistencies. A modified diet was recommended and she seems to be tolerating it well. 1 of the things that she was doing was pocketing food of certain textures and then that was making his way down her airway. They crush up her pills and given to her in pudding or applesauce, and she typically will cough a little bit when that happens. She will need oxygen at home for the foreseeable future. She is a very weak cough. She is having a hard time clearing her secretions. She finished a course of Zosyn in the hospital. Her son decided to send her back to the [facility] on hospice. The appropriate arrangements have been made and she will go back tomorrow morning. Physical Exam Vital Signs: Temp Pulse Resp BP Pulse Ox 97.7 F 81 20 144/68 H 94 05/17/19 07:48 05/17/19 08:43 05/17/19 08:43 05/17/19 07:48 05/17/19 08:43 Intake & Output 05/16/19 05/17/19 05/18/19 06:59 06:59 06:59 Intake Total 3093 3087 100 Output Total 4 Balance 3093 3083 100 Weight 58.3 kg 57.6 kg General appearance: PRESENT: no acute distress, cooperative, disheveled Respiratory exam: PRESENT: rhonchi - Right midlung, unlabored. ABSENT: accessory muscle use, chest wall tenderness, decreased breath sounds - Right base, prolonged expiratory phas, rales, symmetrical, tachypnea, wheezes Cardiovascular exam: PRESENT: RRR, +S1, +S2 Pulses: PRESENT: normal carotid pulses Vascular exam: PRESENT: normal capillary refill GI/Abdominal exam: PRESENT: normal bowel sounds, soft. ABSENT: distended, guarding, rebound, tenderness Extremities exam: ABSENT: clubbing, pedal edema Musculoskeletal exam: PRESENT: normal inspection. ABSENT: deformity Neurological exam: PRESENT: awake, oriented to person, other - She typically does not talk, just nods her head Psychiatric exam: PRESENT: flat affect Skin exam: PRESENT: dry, warm Results Laboratory Results: WBC 9.1 10^3/uL (4.0-10.5) 05/12/19 06:52 RBC 3.42 10^6/uL (3.72-5.28) L 05/12/19 06:52 Hgb 9.5 g/dL (12.0-15.5) L 05/12/19 06:52 Hct 28.5 % (36.0-47.0) L 05/12/19 06:52 MCV 83 fl (80-97) 05/12/19 06:52 MCH 27.7 pg (27.0-33.4) 05/12/19 06:52 MCHC 33.3 g/dL (32.0-36.0) 05/12/19 06:52 RDW 14.4 % (11.5-14.0) H 05/12/19 06:52 Plt Count 267 10^3/uL (150-450) 05/12/19 06:52 Lymph % (Auto) Not Reportable 05/06/19 17:40 Gregg % (Auto) Not Reportable 05/06/19 17:40 Eos % (Auto) Not Reportable 05/06/19 17:40 Baso % (Auto) Not Reportable 05/06/19 17:40 Absolute Neuts (auto) Not Reportable 05/06/19 17:40 Absolute Lymphs (auto) Not Reportable 05/06/19 17:40 Absolute Monos (auto) Not Reportable 05/06/19 17:40 Absolute Eos (auto) Not Reportable 05/06/19 17:40 Absolute Basos (auto) Not Reportable 05/06/19 17:40 Total Counted 100 05/06/19 17:40 Seg Neutrophils % Not Reportable 05/06/19 17:40 Seg Neuts % (Manual) 93 % (42-78) H 05/06/19 17:40 Lymphocytes % (Manual) 3 % (13-45) L 05/06/19 17:40 Monocytes % (Manual) 4 % (3-13) 05/06/19 17:40 Eosinophils % (Manual) 0 % (0-6) 05/06/19 17:40 Basophils % (Manual) 0 % (0-2) 05/06/19 17:40 Abs Neuts (Manual) 14.7 10^3/uL (1.7-8.2) H 05/06/19 17:40 Abs Lymphs (Manual) 0.5 10^3/uL (0.5-4.7) 05/06/19 17:40 Abs Monocytes (Manual) 0.6 10^3/uL (0.1-1.4) 05/06/19 17:40 Absolute Eos (Manual) 0.0 10^3/uL (0.0-0.6) 05/06/19 17:40 Abs Basophils (Manual) 0.0 10^3/uL (0.0-0.2) 05/06/19 17:40 Platelet Estimate Cancelled 05/08/19 03:24 Platelet Comment ADEQUATE 05/06/19 17:40 PT 13.8 SEC (11.4-15.4) 05/12/19 06:52 INR 1.06 05/12/19 06:52 Carbonic Acid 1.29 mmol/L (1.05-1.35) 05/06/19 22:23 HCO3/H2CO3 Ratio 19:1 05/06/19 22:23 ABG pH 7.39 (7.35-7.45) 05/06/19 22:23 ABG pCO2 42.8 mmHg (35-45) 05/06/19 22:23 ABG pO2 190.8 mmHg (80-100) H 05/06/19 22:23 ABG HCO3 25.5 mmol/L (20-24) H 05/06/19 22:23 ABG Total CO2 26.8 mmol/L (21-25) H 05/06/19 22:23 ABG O2 Saturation 99.3 % (94-98) H 05/06/19 22:23 ABG Base Excess 0.4 mmol/L 05/06/19 22:23 FiO2 100% 05/06/19 22:23 Sodium 134.4 mmol/L (137-145) L 05/12/19 06:52 Potassium 4.2 mmol/L (3.6-5.0) 05/12/19 06:52 Chloride 97 mmol/L (98-107) L 05/12/19 06:52 Carbon Dioxide 30 mmol/L (22-30) 05/12/19 06:52 Anion Gap 7 (5-19) 05/12/19 06:52 BUN 7 mg/dL (7-20) 05/12/19 06:52 Creatinine 0.42 mg/dL (0.52-1.25) L 05/12/19 06:52 Est GFR ( Amer) > 60 (>60) 05/12/19 06:52 Est GFR (Non-Af Amer) Cancelled 05/06/19 17:40 Est GFR (MDRD) Non-Af > 60 (>60) 05/12/19 06:52 Glucose 104 mg/dL (75-110) 05/12/19 06:52 Lactic Acid 0.9 mmol/L (0.7-2.1) 05/09/19 12:49 Calcium 8.7 mg/dL (8.4-10.2) 05/12/19 06:52 Magnesium 1.7 mg/dL (1.6-2.3) 05/06/19 17:40 Total Bilirubin 0.5 mg/dL (0.2-1.3) 05/06/19 17:40 Total Bilirubin Cancelled 05/06/19 17:40 Direct Bilirubin 0.2 mg/dL (0.0-0.4) 05/06/19 17:40 Direct Bilirubin Cancelled 05/06/19 17:40 Neonat Total Bilirubin Cancelled 05/06/19 17:40 Neonat Total Bilirubin Not Reportable 05/06/19 17:40 Neonat Direct Bilirubin Cancelled 05/06/19 17:40 Neonat Direct Bilirubin Not Reportable 05/06/19 17:40 Neonat Indirect Bili Cancelled 05/06/19 17:40 Neonat Indirect Bili Not Reportable 05/06/19 17:40 AST 30 U/L (14-36) 05/06/19 17:40 AST Cancelled 05/06/19 17:40 ALT 15 U/L (<35) 05/06/19 17:40 ALT Cancelled 05/06/19 17:40 Alkaline Phosphatase 86 U/L (38-126) 05/06/19 17:40 Alkaline Phosphatase Cancelled 05/06/19 17:40 Creatine Kinase 24 U/L (30-135) L 05/06/19 17:40 CK-MB (CK-2) 0.65 ng/mL (<4.55) 05/06/19 17:40 Troponin I 0.028 ng/mL 05/07/19 02:45 Total Protein 6.9 g/dL (6.3-8.2) 05/06/19 17:40 Total Protein Cancelled 05/06/19 17:40 Albumin 3.8 g/dL (3.5-5.0) 05/06/19 17:40 Albumin Cancelled 05/06/19 17:40 EGFR Cancelled 05/06/19 17:40 Urine Color MARIANGEL 05/06/19 22:23 Urine Appearance CLEAR 05/06/19 22:23 Urine pH 5.0 (5.0-9.0) 05/06/19 22:23 Ur Specific Alice 1.020 05/06/19 22:23 Urine Protein NEGATIVE mg/dL (NEGATIVE) 05/06/19 22:23 Urine Glucose (UA) NEGATIVE mg/dL (NEGATIVE) 05/06/19 22:23 Urine Ketones TRACE mg/dL (NEGATIVE) H 05/06/19 22:23 Urine Blood NEGATIVE (NEGATIVE) 05/06/19 22:23 Urine Nitrite NEGATIVE (NEGATIVE) 05/06/19 22:23 Urine Bilirubin NEGATIVE (NEGATIVE) 05/06/19 22:23 Urine Urobilinogen 4.0 mg/dL (<2.0) H 05/06/19 22:23 Ur Leukocyte Esterase NEGATIVE (NEGATIVE) 05/06/19 22:23 Urine WBC (Auto) 1 /HPF 05/06/19 22:23 Urine RBC (Auto) 1 /HPF 05/06/19 22:23 Squamous Epi Cells Auto 5 /HPF 05/06/19 22:23 Urine Mucus (Auto) MOD /LPF 05/06/19 22:23 Urine Ascorbic Acid NEGATIVE (NEGATIVE) 05/06/19 22:23 Influenza A (Rapid) NEGATIVE (NEGATIVE) 05/06/19 22:23 Influenza B (Rapid) NEGATIVE (NEGATIVE) 05/06/19 22:23 Slides for Path Review Cancelled 05/08/19 03:24 05/06/19 05/07/19 17:40 02:45 CK-MB (CK-2) 0.65 Troponin I 0.023 0.028 Impressions: Chest X-Ray 05/06/19 18:45 IMPRESSION: Bilateral medial basilar consolidation and trace right pleural effusion. Chest X-Ray 05/09/19 00:00 IMPRESSION: Increasing volume loss in the lung bases with elevation of the right hemidiaphragm. Findings may be related to edema, atelectasis and/or pneumonia with bilateral effusions. Chest CT 05/10/19 00:00 IMPRESSION: Moderate bilateral pleural effusions with associated atelectasis or consolidation. There are scattered ground-glass and consolidative opacities of the more dependent lungs, more conspicuous in the right lower and middle lobes. Findings are most consistent with infection or aspiration. Modified Barium Swallow 05/11/19 00:00 IMPRESSION: NO EVIDENCE OF PENETRATION OR ASPIRATION. PLEASE SEE SPEECH PATHOLOGIST REPORT FOR OTHER FINDINGS AND RECOMMENDATIONS. Chest Ultrasound 05/12/19 00:00 IMPRESSION: Preprocedure ultrasound demonstrated small bilateral pleural effusions. Findings of moderate effusions on prior CT secondary to adjacent consolidated lung. No thoracentesis was performed at this time secondary to the small pleural fluid volume. Plan Time Spent: Greater than 30 Minutes Stroke Is this a Stroke Patient?: No Acute Heart Failure - Is this a Heart Failure Patient?: No
[2019-05-18] MEDS: PIPERACILLIN SODIUM/TAZOBACTAM 3.375 GM in NORMAL SALINE 100 ML IV SCH ×3 (01:08→12:10)
[2019-05-18] MEDS: HEPARIN SOD (PORCINE) 5,000 UNIT/ML 1 ML VIAL SUBCUT SCH (06:53)
[2019-05-18] MEDS: LEVALBUTEROL HCL NEB 0.63 MG/3 ML AMPUL NEB PRN (08:38)
[2019-05-18] MEDS: ACETYLCYSTEINE 20% SOLN 800 MG/4 ML VIAL.NEB NEB SCH (08:39)
[2019-05-18] MEDS ORDERED: INFLUENZA QUAD (6MOS+) 2019-20 VAC 0.5 ML SYR IM ONE (09:17)
[2019-05-18] MEDS: FAMOTIDINE 20 MG TABLET PO SCH (09:51)
[2019-05-18] MEDS: DOCUSATE SODIUM 100 MG CAPSULE PO SCH (09:51)
[2019-05-18] MEDS: DILTIAZEM HCL 120 MG CAP.SR.24H PO SCH (09:51)
[2019-05-18 10:21] VITALS: BP 134/50
== END 2019-05-18 10:30 | DRG 871 ==
LOC: ER 18:34 → EH 22:48 → 4N 05-07 01:00 → 4W 05-17 13:49
PROVIDERS: ADMIT Emergency Medicine; ATTEND Emergency Medicine
PROC: 5A09557 Assistance with Respiratory Ventilation, Greater than 96 Consecutive Hours, Continuous Positive Airway Pressure (ICD-10-PCS; principal; 2019-05-06)
PROC: 3E0234Z Introduction of Serum, Toxoid and Vaccine into Muscle, Percutaneous Approach (ICD-10-PCS; 2019-05-18)
DX: A41.9 Sepsis, unspecified organism (principal); J96.01 Acute respiratory failure with hypoxia; J69.0 Pneumonitis due to inhalation of food and vomit; E46 Unspecified protein-calorie malnutrition; Z68.1 Body mass index [BMI] 19.9 or less, adult; Z66 Do not resuscitate; I48.0 Paroxysmal atrial fibrillation; R65.20 Severe sepsis without septic shock; F03.90 Unspecified dementia, unspecified severity, without behavioral disturbance, psychotic disturbance, mood disturbance, and anxiety; R13.19 Other dysphagia; Z23 Encounter for immunization; Z87.891 Personal history of nicotine dependence; Z90.710 Acquired absence of both cervix and uterus; Z88.6 Allergy status to analgesic agent; Z79.899 Other long term (current) drug therapy
CPT/HCPCS: 36415; 71045; 71250; 74230; 76604; 80048; 80053; 81001; 82550; 82553; 82803; 83605; 83735; 84484; 85025; 85027; 85610; 87804; 90686; 93005; 93010; 94640; 94660; 99285; J0456; J0696; J1644; J2543; J3370; J3490; J7050; J7060; J7120; J7614

== ENCOUNTER 2020-05-04 19:02 | Emergency (ER) | payer MEDICARE ==
[2020-05-04] MEDS ORDERED: PIPERACILLIN/TAZOBACTAM 3.375 GM VIAL IV ONE (20:57)
[2020-05-04] MEDS ORDERED: NORMAL SALINE 250 ML IV ONE (20:57)
[2020-05-04] MEDS ORDERED: VANCOMYCIN HCL INJ 1000 MG VIAL IV ONE (20:57)
--- NOTE | 2020-05-04 20:59 | ER Document Report ---
ED General - General Chief Complaint: Fever Stated Complaint: FEVER Time Seen by Provider: 05/04/20 20:47 Primary Care Provider: JMAES DOUGLASS MD [Primary Care Provider] - Follow up as needed Mode of Arrival: Medic Information source: Patient Cannot obtain history due to: Dementia Notes: 05/04/20 19:13 - ED Nursing Note by LENKATTYJACINTA [facility] Num: [id number] : 1930 Patient Age: 89 Pt presents to the ED via EMS for CC of fever. EMS state sthat patient is a resident of a assisted living facility the [facility] and the staff stated that the patient spike a fever mid afternoon today. EMS states that patient is nonverbal per her baseline. EMS states that the staff did not tell her the fever temperature. EMS states that the staff did not give the patient anything for the fever due to the patient having aspiration issues. EMS states that patient had a oral temp of 101.4 and they gave 975mg of rectal tylenol. Pt breathing e/u. NAD noted. EMS states that patient was on hospice but was removed due to patient condition getting better. MY NOTES 89-year-old female arrives by EMS with chief complaint of fever. Patient has a history of Parkinson's disease dementia bilateral pneumonia paroxysmal atrial fibrillation with RVR dehydration and rhabdomyolysis. Patient arrives with 106/56 blood pressure 24 respirations per minute 106 heart rate and 93% saturation. TRAVEL OUTSIDE OF THE [place] IN LAST 30 DAYS: No - HPI Onset: This afternoon Quality of pain: No pain Associated symptoms: None Exacerbated by: Denies Relieved by: Denies Similar symptoms previously: No - unknown ..pt with dementia Recently seen / treated by doctor: No - Related Data Allergies/Adverse Reactions: codeine [Codeine] Allergy (Mild, Verified 05/04/20 19:22) Nausea, vomiting Past Medical History - General Information source: Emergency Med Personnel - Social History Smoking Status: Unknown if Ever Smoked Cigarette use (# per day): No Chew tobacco use (# tins/day): No Smoking Education Provided: No Frequency of alcohol use: None Drug Abuse: None Lives with: Shelter Family History: Reviewed & Not Pertinent - Past Medical History Cardiac Medical History: Reports: Hx Atrial Fibrillation - Paroxysmal atrial fibrillation Denies: Hx Coronary Artery Disease, Hx Heart Attack, Hx Hypertension Pulmonary Medical History: Reports: Hx Bronchitis - 45 years ago, Hx Pneumonia - 45 years ago Denies: Hx Asthma, Hx COPD Neurological Medical History: Denies: Hx Cerebrovascular Accident, Hx Seizures Endocrine Medical History: Denies: Hx Diabetes Mellitus Type 1, Hx Diabetes Mellitus Type 2, Hx Hyperthyroidism, Hx Hypothyroidism Renal/ Medical History: Denies: Hx Peritoneal Dialysis GI Medical History: Denies: Hx Hepatitis, Hx Hiatal Hernia, Hx Ulcer Musculoskeletal Medical History: Denies Hx Arthritis, Denies Hx Gout Skin Medical History: Denies Hx Eczema, Denies Hx Psoriasis Psychiatric Medical History: Reports: Hx Dementia Denies: Hx Depression Infectious Medical History: Denies: Hx Hepatitis Past Surgical History: Reports: Hx Hysterectomy. Denies: Hx Mastectomy, Hx Open Heart Surgery, Hx Pacemaker - Immunizations Hx Diphtheria, Pertussis, Tetanus Vaccination: No Hx Pneumococcal Vaccination: 08/18/08 Review of Systems - Review of Systems Constitutional: No symptoms reported, See HPI, Fever. denies: Weakness, Weight gain EENT: No symptoms reported. denies: Eye pain, Blurred vision, Tearing Cardiovascular: No symptoms reported. denies: Chest pain, Orthopnea Respiratory: No symptoms reported Gastrointestinal: No symptoms reported. denies: Vomiting, Constipation, Poor appetite Genitourinary: No symptoms reported. denies: Flank pain, Hematuria, Pain Female Genitourinary: No symptoms reported. denies: Post menopausal, Heavy/abnormal periods Musculoskeletal: No symptoms reported. denies: Muscle stiffness, Deformity Skin: No symptoms reported. denies: Change in hair/nails, Dryness, Lesions Hematologic/Lymphatic: No symptoms reported Neurological/Psychological: No symptoms reported. denies: Weakness, Gait changes, Loss of power, Paralysis Physical Exam - Vital signs Vitals: Resp BP Pulse Ox 16 121/53 L 94 05/04/20 19:08 05/04/20 19:08 05/04/20 19:08 Interpretation: Hypotensive, Tachycardic, Hypoxic, Tachypneic - General General appearance: Alert, Other - but opens mouth on command but non verbal - HEENT Head: Normocephalic, Atraumatic Eyes: Normal Pupils: PERRL Nasal: Normal Mouth/Lips: Normal Mucous membranes: Dry Pharynx: Normal Neck: Normal - Respiratory Respiratory status: No respiratory distress Chest status: Nontender Breath sounds: Normal Chest palpation: Normal - Cardiovascular Rhythm: Tachycardia - Abdominal Inspection: Normal Distension: No distension Bowel sounds: Normal Tenderness: Nontender Organomegaly: No organomegaly - Rectal Hemorrhoids: Other - deferred - Genitourinary Bimanuel exam: Other - deferred - Back Back: Normal - Extremities General upper extremity: Normal inspection General lower extremity: Normal inspection - Neurological Neuro grossly intact: No Cognition: Confused Orientation: Disoriented to place, Disoriented to time, Disoriented to events Roya Coma Scale Eye Opening: To Voice [place] Coma Scale Verbal: Confused [place] Coma Scale Motor: Obeys Commands Roya Coma Scale Total: 13 Cranial nerves: Normal Cerebellar coordination: Finger-nose rhombey - pt refused Motor strength normal: LUE, RUE, LLE, RLE Babinski reflex: Normal (flexor plantar) Sensory: Normal - Psychological Associated symptoms: Flat affect - Skin Skin Temperature: Warm Skin Moisture: Dry Course - Vital Signs Vital signs: Temp Pulse Resp BP Pulse Ox 98.6 F 18 108/58 L 100 05/04/20 20:33 05/05/20 02:01 05/05/20 02:01 05/05/20 02:01 - Laboratory Result Diagrams: 05/04/20 20:41 05/04/20 20:41 Laboratory results interpreted by me: 05/04/20 05/04/20 05/04/20 20:41 20:41 22:11 Hgb 10.9 L Hct 32.2 L RDW 16.9 H Lymph % (Auto) 9.7 L Calhoun % (Auto) 14.5 H ABG pO2 72.3 L ABG HCO3 27.8 H ABG Total CO2 29.1 H Carbon Dioxide 31 H BUN 24 H Creatinine 0.51 L Glucose 133 H Creatine Kinase 28 L Albumin 3.4 L Urine Urobilinogen 05/04/20 22:32 Hgb Hct RDW Lymph % (Auto) Calhoun % (Auto) ABG pO2 ABG HCO3 ABG Total CO2 Carbon Dioxide BUN Creatinine Glucose Creatine Kinase Albumin Urine Urobilinogen 2.0 H - Diagnostic Test Radiology reviewed: Reports reviewed - EKG Interpretation by Me EKG shows normal: Sinus rhythm Rate: Normal Rhythm: NSR - 95 bpm with left bundle branch block and no ST depression no ST elevation no T wave elevation no T wave depression and this was read by me with axis within normal limits Ramsey/QRS: LBBB Discharge - Discharge Clinical Impression: Fever Qualifiers: Fever type: unspecified Qualified Code(s): R50.9 - Fever, unspecified Condition: Good Disposition: HOME, SELF-CARE Instructions: Acetaminophen Additional Instructions: Follow-up with personal doctor; return to ER as needed; take Tylenol for fevers encourage fluids; you have received antibiotics while in the emergency room and you may get diarrhea afterwards. Tried to eat some yogurt this week to help stave off any diarrhea. Referrals: JAMES DOUGLASS MD [Primary Care Provider] - Follow up as needed
[2020-05-04 21:13] LABS: ABSOLUTE MONOCYTES (AUTO) 0.9 10^3/uL (0.1-1.4); BASOPHILS % (AUTO) 0.3 % (0-2); EOSINOPHILS % (AUTO) 0.1 % (0-6); TOTAL CELLS COUNTED % (AUTO) 100 %
[2020-05-04 21:17] LABS: ALBUMIN 3.4 g/dL (3.5-5.0); ALKALINE PHOSPHATASE 83 U/L (38-126); ANION GAP 7 (5-19); ASPARTATE AMINO TRANSFERASE 17 U/L (14-36); BILIRUBIN,DIRECT 0.3 mg/dL (0.0-0.4); BILIRUBIN,TOTAL 0.4 mg/dL (0.2-1.3); BLOOD UREA NITROGEN 24 mg/dL (7-20); CALCIUM 9.3 mg/dL (8.4-10.2); CARBON DIOXIDE 31 mmol/L (22-30); CHLORIDE 100 mmol/L (98-107); CREATINE KINASE 28 U/L (30-135); GLUCOSE 133 mg/dL (75-110); POTASSIUM 4.8 mmol/L (3.6-5.0); TOTAL PROTEIN 6.3 g/dL (6.3-8.2)
[2020-05-04 21:24] LABS: ABSOLUTE LYMPHOCYTES (AUTO) 0.6 10^3/uL (0.5-4.7); ABSOLUTE NEUT (AUTO) 4.5 10^3/uL (1.7-8.2); HEMATOCRIT 32.2 % (36.0-47.0); HEMOGLOBIN 10.9 g/dL (12.0-15.5); LYMPHOCYTES % (AUTO) 9.7 % (13-45); MEAN CORPUSCULAR HEMOGLOBIN 28.7 pg (27.0-33.4); MEAN CORPUSCULAR HGB CONC 33.9 g/dL (32.0-36.0); MEAN CORPUSCULAR VOLUME 85 fl (80-97); MONOCYTES % (AUTO) 14.5 % (3-13); PLATELET COUNT 236 10^3/uL (150-450); RED BLOOD COUNT 3.81 10^6/uL (3.72-5.28); RED CELL DISTRIBUTION WIDTH 16.9 % (11.5-14.0); SEGMENTED NEUTROPHILS % (AUTO) 75.4 % (42-78); WHITE BLOOD COUNT 5.9 10^3/uL (4.0-10.5)
[2020-05-04 21:30] LABS: CREATINE KINASE MB < 0.22 ng/mL (<4.55); NT PRO BNP 329 pg/mL (<450)
[2020-05-04 21:32] LABS: TROPONIN I 0.044 ng/mL
[2020-05-04 21:58] LABS: INTERNATIONAL RATION (INR) 0.96
[2020-05-04 21:59] LABS: PARTIAL THROMBOPLASTIN TIME 33.4 SEC (23.5-35.8)
--- NOTE | 2020-05-04 22:17 | RADIOLOGY REPORT (SQ) ---
EXAM DESCRIPTION: XR CHEST 1 VIEW COMPLETED DATE/TME: 05/04/2020 20:55 CLINICAL HISTORY: 89 years, Female, fever COMPARISON: 05/09/2019 chest NUMBER OF VIEWS: 1 TECHNIQUE: Portable chest LIMITATIONS: None. FINDINGS: Heart size is normal. Osteopenia. Atheromatous change of the thoracic aorta. No pneumothorax. Equivocal left basilar infiltrate. IMPRESSION: Equivocal left basilar infiltrate. Osteopenia copyright 2010 [employer]- All Rights Reserved
[2020-05-04 22:20] LABS: ARTERIAL BLOOD BASE EXCESS 3.1 mmol/L; ARTERIAL BLOOD FIO2 ROOM AIR; ARTERIAL BLOOD H2CO3 1.29 mmol/L (1.05-1.35); ARTERIAL BLOOD HCO3 27.8 mmol/L (20-24); ARTERIAL BLOOD O2 SATURATION 94.9 % (94-98); ARTERIAL BLOOD PCO2 42.8 mmHg (35-45); ARTERIAL BLOOD PH 7.43 (7.35-7.45); ARTERIAL BLOOD PO2 72.3 mmHg (80-100); ARTERIAL BLOOD TOTAL CO2 29.1 mmol/L (21-25)
[2020-05-04 22:48] LABS: APPEARANCE,URINE CLEAR; BILIRUBIN,URINE NEGATIVE (NEGATIVE); COLOR,URINE YELLOW; GLUCOSE, URINE NEGATIVE (NEGATIVE); KETONES,URINE NEGATIVE (NEGATIVE); LEUKOCYTE ESTERASE,URINE NEGATIVE (NEGATIVE); NITRITE,URINE NEGATIVE (NEGATIVE); PROTEIN,URINE NEGATIVE (NEGATIVE); URINE SPECIFIC GRAVITY 1.024
--- NOTE | 2020-05-05 00:24 | EKG REPORT ---
SEVERITY:- ABNORMAL ECG - ACCELERATED JUNCTIONAL RHYTHM vs SINUS RHYTHM, REC REPEAT EKG LEFT BUNDLE BRANCH BLOCK : Confirmed by: Mauri Walls 05-May-2020 00:23:39
[2020-05-05 07:40] VITALS: BP 103/93
== END 2020-05-05 07:40 | disposition home or self-care (01) ==
LOC: ER 19:02
DX: R50.9 Fever, unspecified (principal); R00.0 Tachycardia, unspecified; Z20.828 Contact with and (suspected) exposure to other viral communicable diseases; I48.91 Unspecified atrial fibrillation; Z88.6 Allergy status to analgesic agent
CPT/HCPCS: 93005; 99285; 96365; 96366; 96367; 36415; 87040; 87086; 82553; 82803; 82550; 85025; 85610; 85730; 80053; 81001; 84484; 83880; 71045; 93010; U0003; J7050; J3370; J2543; C9803; 87635